=== PATIENT | female | born 1930 | race Caucasian/White ===

== ENCOUNTER 2019-07-06 18:52 | Inpatient (IN) ==
--- NOTE | 2019-07-06 19:09 | Emergency Department Note ---
History of Present Illness General Chief Complaint: Chest Pain Stated Complaint: Referred by Doctor Time Seen by Provider: 07/06/19 19:01 History of Present Illness Provider Complaint: chest pain Onset (ago): day(s) 4 Duration: progressively worsening Pain Location: left chest Pain Radiation: LUE Severity: severe Maximum Pain Intensity: 8 Current Pain Intensity: 8 Quality: + sharp Relieved By: + nothing Exacerbated By: + nothing Associated symptoms: + cough; no nausea, no vomiting, no diaphoresis, no dyspnea, no syncope, no palpitations and no leg swelling No anosmia or loss of taste. No recent travel. No hemoptysis. Home Medications Home Medications Medication Instructions Recorded Confirmed Type albuterol sulfate 2 puff INHALATION Q6H PRN 02/19/18 07/06/19 History ropinirole [Requip] 0.5 mg PO QPM 02/19/18 07/06/19 History trazodone 100 mg PO QPM 02/19/18 07/06/19 History atorvastatin 20 mg PO HS 07/06/19 07/06/19 History levothyroxine 50 mcg PO DAILY 07/06/19 07/06/19 History lisinopril 20 mg PO DAILY 07/06/19 07/06/19 History omeprazole 20 mg PO DAILY 07/06/19 07/06/19 History theophylline 200 mg PO DAILY 07/06/19 07/06/19 History Allergies Allergy/AdvReac Type Severity Reaction Status Date / Time No Known Allergies Allergy Verified 07/06/19 20:29 Past Med/Surg History Medical History (Updated 07/06/19 @ 21:01 by Mandeep Landon) Diverticulitis (Chronic) GI bleed Hemorrhoid No pertinent family history PSVT (paroxysmal supraventricular tachycardia) Stroke Surgical History (Updated 07/06/19 @ 19:08 by Mandeep Landon) No pertinent past surgical history Social History Preferred Language: Vietnamese Communication Ability: Effective Beliefs That Will Affect Care: None marital status: / Current Living Situation: Family Feels Safe at Home: Yes Smoking Status: Never smoker Hx Alcohol Use: No Hx Substance Use: No Review of Systems A total of 10 systems reviewed and were otherwise negative Physical Exam Vital Signs Vital Signs - 24 hr 07/06/19 18:54 07/06/19 19:22 07/06/19 20:14 Temperature 37.0 C Temperature Source Oral Pulse Rate 97 H 89 82 Pulse Rate from SpO2 Sensor 90 Respiratory Rate 18 20 Respiratory Depth Normal Blood Pressure 169/97 H Blood Pressure Mean 121 Pulse Oximetry 94 93 Oxygen Delivery Method Room Air Sepsis Recent Fever Within 48 Hours No Sepsis New/Unexplained Change in Mental Status No Sepsis Action Taken by Nursing No Action Required 07/06/19 20:15 07/06/19 20:30 Temperature Temperature Source Pulse Rate 84 78 Pulse Rate from SpO2 Sensor 85 77 Respiratory Rate 20 24 Respiratory Depth Blood Pressure 163/102 H Blood Pressure Mean 135 Pulse Oximetry 96 95 Oxygen Delivery Method Sepsis Recent Fever Within 48 Hours Sepsis New/Unexplained Change in Mental Status Sepsis Action Taken by Nursing Physical Exam GENERAL: She is oriented to person, place, and time. She appears well-developed and well-nourished. She does not appear distressed. HENT: Exam performed. -Head: Normocephalic and atraumatic. -Right Ear: External ear normal. No mastoid tenderness. -Left Ear: External ear normal. No mastoid tenderness. -Mouth/Throat: The oropharynx is clear and moist. No trismus in the jaw. No dental abscesses or uvula swelling. No oropharyngeal exudate or tonsillar abscesses. EYES: Conjunctivae and EOM are normal. Pupils are equal, round, and reactive to light. Right eye exhibits no discharge. Left eye exhibits no discharge. No scleral icterus. NECK: Normal range of motion. Neck supple. No JVD present. No spinous process tenderness present. No carotid bruit present. No rigidity. No tracheal deviation and normal range of motion present. No Brudzinski's sign and no Kernig's sign noted. CV: Normal rate, regular rhythm, normal heart sounds and intact distal pulses. There is no peripheral edema. Palpable radial pulses bue. PULM/CHEST: Effort normal and breath sounds normal. No respiratory distress. No stridor. She has no wheezes. She has no rales. -Chest Wall: Pain on palpation of the left lateral ribs reproducing the chief complaint. No crepitus bilaterally. ABD: The abdomen is soft. Bowel sounds are normal. She has no distension. No mass is present. There is no tenderness. There is no rebound, no guarding, no Muir's sign and no tenderness at McBurney's point. Rovsig negative MUSC/SKEL: Normal range of motion. There is no peripheral edema, tenderness or deformity. LYMPH: No cervical adenopathy. NEURO: She is alert and oriented to person, place, and time. She has normal strength. No cranial nerve deficit or sensory deficit. Coordination and gait normal. GCS eye subscore is 4. GCS verbal subscore is 5. GCS motor subscore is 6. Cerebellar tests wnl. SKIN: Skin is warm and dry. She is not diaphoretic. PSYCH: She has a normal mood and affect. Behavior is normal. Judgment and thought content normal. Course Course 1903: The patient was evaluated in room B7. A complete history and physical exam was performed. 2057: Vital signs stable. Labs and imaging within normal limits. Junior Manufacturing Engineer Rodriguez was able to obtain the patient's records from today's PCP with visit with Dr. Quintero. Per Dr. Quintero's note:\\ " Multitude of concerning symptoms-speech difficulty possible suggestive of TIA. Pleuritic chest pain could represent PE. EKG performed in the office shows possible septal changes from her previous EKG. Son is been sleeping more recently? Dehydration versus UTI/pyelonephritis. Needs lab/imaging evaluation." Given the patient's EKG finding changes from her PCP office as well as her age, PCP concern, and other comorbidities, the patient will be admitted to the hospital. The patient was initially resistant to staying however I discussed with her son Serafin ([phone]) and he confirms a story of the patient having difficulty finding her words for the last few days. He also confirmed the patient having chest pain rating down her left arm. Given the symptoms patient will be admitted to the hospital service. After discussing with her son on cell phone patient is agreement to stay. Discussed with Dr. Quinones who [facility] hospitalist who agreed to admit the patient. Medical Decision Making Laboratory Data Result diagrams: 07/06/19 19:16 07/06/19 19:16 Labs: Lab Results 07/06/19 07/06/19 07/06/19 Range/Units 19:16 19:16 19:16 WBC 8.81 (4.8-10.8) K/uL RBC 3.93 L (4.2-5.4) M/uL Hgb 12.5 (12.0-16.0) g/dL Hct 37.8 (37-47) % MCV 96.2 (80-100) fL MCH 31.8 (25-34) pg MCHC 33.1 (32-36) g/dL RDW Std Deviation 48.9 H (36.4-46.3) fL RDW Coeff of Caroline 14.0 (11.5-14.5) % Plt Count 237 (130-400) K/uL MPV 9.9 (7.4-10.4) fL Immature Gran % (Auto) 0.3 % Neut % (Auto) 72.0 % Lymph % (Auto) 18.8 % [place] % (Auto) 5.4 % Eos % (Auto) 3.3 % Baso % (Auto) 0.2 % Immature Gran # (Auto) 0.03 H (0.00-0.02) K/uL Neut # (Auto) 6.33 (1.4-6.5) K/uL Lymph # (Auto) 1.66 (1.2-3.4) K/uL [place] # (Auto) 0.48 (0.11-0.59) K/uL Eos # (Auto) 0.29 (0-0.5) K/uL Baso # (Auto) 0.02 (0-0.2) K/uL PT 10.3 (9.0-12.0) Seconds INR 1.0 (0.9-1.1) APTT 26.5 (21.0-31.0) Seconds PTT Ratio 0.9 Sodium 141 (136-145) mmol/L Potassium 4.2 (3.5-5.1) mmol/L Chloride 107 (98-107) mmol/L Carbon Dioxide 27 (21-32) mmol/L Anion Gap 7.0 (3-11) BUN 12 (7-18) mg/dl Creatinine 0.94 (0.6-1.2) mg/dl Est Cr Clr Drug Dosing Not Reportable Est GFR ( Amer) 63.7 Est GFR (Non-Af Amer) 54.9 BUN/Creatinine Ratio 12.8 (10-20) Glucose 130 H (70-99) mg/dl Calcium 9.3 (8.5-10.1) mg/dl Troponin I 0.015 (0-0.045) ng/ml Imaging Data CT scan - head: Radiologist's impression: CT OF THE HEAD WITHOUT CONTRAST CLINICAL HISTORY: Altered mental status. COMPARISON STUDY: Head CT February 22, 2018. MRI of the brain February 20, 2018. CT DOSE: 537.48 mGy.cm TECHNIQUE: Helical axial images of the head were obtained without IV contrast. Automated exposure control was utilized for the study. A dose lowering tech nique was utilized adhering to the principles of ALARA. FINDINGS: No acute intracranial hemorrhage, midline shift or mass effect is present. The ventricular system is unremarkable. The basilar cisterns are patent. No extra-axial collections are present. There are no findings to suggest acute dural sinus thrombosis or acute territorial infarct. No significant calvarial abnormalities are present. Visualized portions of the sinuses and mastoid air cells are clear. White matter hypodensities are unchanged and suggest extensive small vessel disease. IMPRESSION: No acute intracranial findings. No change in appearance of the brain. ACT 112: Negative or not required by law. Electronically signed by: Balbir Glasgow M.D. 07/06/2019 7:42 PM Dictated: 07/06/191938 Transcribed: 07/06/191938 Chest x-ray: Radiologist's impression: XR chest 1V portable CLINICAL HISTORY: Chest Pain COMPARISON STUDY: No previous studies for comparison. FINDINGS: The patient is rotated. There is no pneumothorax or pleural effusion. Note is made of mild cardiomegaly without evidence for pulmonary edema. There is no consolidation to suggest pneumonia. Lung volumes are at the lower limits of normal. IMPRESSION: 1. No acute cardiopulmonary findings. 2. Mild cardiomegaly without evidence for pulmonary edema. ACT 112: Negative or not required by law. Electronically signed by: Balbir Glasgow M.D. 07/06/2019 8:22 PM Dictated: 07/06/191956 Transcribed: 07/06/191958 ECG Data Additional Comments: EKG shows sinus rhythm with rate of 83. ID and QTc intervals within normal limits. QRS 124. Left bundle branch block present. Sgarbosa negative. [facility] Narrative 1903: The patient was evaluated in room B7. A complete history and physical exam was performed. 2057: Vital signs stable. Labs and imaging within normal limits. Junior Manufacturing Engineer Rodriguez was able to obtain the patient's records from today's PCP with visit with Dr. Quintero. Per Dr. Quintero's note:\\ " Multitude of concerning symptoms-speech difficulty possible suggestive of TIA. Pleuritic chest pain could represent PE. EKG performed in the office shows possible septal changes from her previous EKG. Son is been sleeping more recently? Dehydration versus UTI/pyelonephritis. Needs lab/imaging evaluation." Given the patient's EKG finding changes from her PCP office as well as her age, PCP concern, and other comorbidities, the patient will be admitted to the hospital. The patient was initially resistant to staying however I discussed with her son Serafin ([phone]) and he confirms a story of the patient having difficulty finding her words for the last few days. He also confirmed the patie nt having chest pain rating down her left arm. Given the symptoms patient will be admitted to the hospital service. After discussing with her son on cell phone patient is agreement to stay. Discussed with Dr. Quinones who [facility] hospitalist who agreed to admit the patient. Impression & Plan Chest pain Discharge Plan Visit Data Chief Complaint: Chest Pain Stated Complaint: Referred by Doctor ED Provider: Mandeep Landon Discharge Problem: Chest pain Patient Disposition: Being Evaluated by Hospitalist Forms Stand Alone Forms: My [employer] Prescriptions Prescriptions: No Action atorvastatin 20 mg tablet 20 mg PO HS RF: 0 theophylline 400 mg tablet extended release 24 hr 200 mg PO DAILY RF: 0 lisinopril 20 mg tablet 20 mg PO DAILY RF: 0 levothyroxine 50 mcg tablet 50 mcg PO DAILY RF: 0 omeprazole 20 mg capsule,delayed release(DR/EC) 20 mg PO DAILY RF: 0 trazodone 100 mg Tablet 100 mg PO QPM RF: 0 ropinirole [Requip] 0.25 mg Tablet 0.5 mg PO QPM RF: 0 albuterol sulfate 90 mcg/actuation Hfa Aerosol Inhaler 2 puff INHALATION Q6H PRN (Reason: Shortness Of Breath Or Wheezing) RF: 0 Referrals Referrals: Dulce Maria Quintero DO [Primary Care Provider] - Discharge Problem: Chest pain Qualifiers: Chest pain type: unspecified Qualified Code(s): R07.9 - Chest pain, unspecified
[2019-07-06 19:30] LABS: Basophils # (auto) 0.02 K/uL (0-0.2); Basophils % (auto) 0.2 %; Eosinophils # (auto) 0.29 K/uL (0-0.5); Eosinophils % (auto) 3.3 %; Hematocrit (blood only) 37.8 % (37-47); Hemoglobin 12.5 g/dL (12.0-16.0); Immature Granulocytes # (auto) 0.03 K/uL (0.00-0.02); Immature Granulocytes % (auto) 0.3 %; Lymphocytes # (auto) 1.66 K/uL (1.2-3.4); Lymphocytes % (auto) 18.8 %; Mean Corpuscular Hemoglobin 31.8 pg (25-34); Mean Corpuscular Hgb Conc 33.1 g/dL (32-36); Mean Corpuscular Volume 96.2 fL (80-100); Mean Platelet Volume 9.9 fL (7.4-10.4); Monocytes # (auto) 0.48 K/uL (0.11-0.59); Monocytes % (auto) 5.4 %; Neutrophils # (auto) 6.33 K/uL (1.4-6.5); Platelet Count 237 K/uL (130-400); RDW Standard Deviation 48.9 fL (36.4-46.3); Red Blood Count 3.93 M/uL (4.2-5.4); White Blood Count 8.81 K/uL (4.8-10.8)
--- NOTE | 2019-07-06 19:43 | CT Scan Report ---
CT OF THE HEAD WITHOUT CONTRAST CLINICAL HISTORY: Altered mental status. COMPARISON STUDY: Head CT February 22, 2018. MRI of the brain February 20, 2018. CT DOSE: 537.48 mGy.cm TECHNIQUE: Helical axial images of the head were obtained without IV contrast. Automated exposure con trol was utilized for the study. A dose lowering technique was utilized adhering to the principles o f ALARA. FINDINGS: No acute intracranial hemorrhage, midline shift or mass effect is present. The ventricular system is unremarkable. The basilar cisterns are patent. No extra-axial collections are present. Ther e are no findings to suggest acute dural sinus thrombosis or acute territorial infarct. No significan t calvarial abnormalities are present. Visualized portions of the sinuses and mastoid air cells are c lear. White matter hypodensities are unchanged and suggest extensive small vessel disease. IMPRESSION: No acute intracranial findings. No change in appearance of the brain. ACT 112: Negative or not required by law. Electronically signed by: Balbir Glasgow M.D. 07/06/2019 7:42 PM
[2019-07-06 19:44] LABS: Partial Thromboplastin Ratio 0.9; Partial Thromboplastin Time 26.5 Seconds (21.0-31.0); Prothrombin Time 10.3 Seconds (9.0-12.0)
[2019-07-06 19:48] LABS: BUN Creatinine Ratio 12.8 (10-20); Blood Urea Nitrogen 12 mg/dl (7-18); Calcium 9.3 mg/dl (8.5-10.1); Carbon Dioxide 27 mmol/L (21-32); Chloride 107 mmol/L (98-107); Est GFR (African American) 63.7; Est GFR (Non-African American) 54.9; Glucose 130 mg/dl (70-99); Potassium 4.2 mmol/L (3.5-5.1); Sodium 141 mmol/L (136-145)
[2019-07-06 19:52] LABS: Troponin I 0.015 ng/ml (0-0.045)
--- NOTE | 2019-07-06 20:24 | XRay Report ---
XR chest 1V portable CLINICAL HISTORY: Chest Pain COMPARISON STUDY: No previous studies for comparison. FINDINGS: The patient is rotated. There is no pneumothorax or pleural effusion. Note is made of mild cardiomegaly without evidence for pulmonary edema. There is no consolidation to suggest pneumonia. Karina ng volumes are at the lower limits of normal. IMPRESSION: 1. No acute cardiopulmonary findings. 2. Mild cardiomegaly without evidence for pulmonary edema. ACT 112: Negative or not required by law. Electronically signed by: Balbir Glasgow M.D. 07/06/2019 8:22 PM
[2019-07-06] MEDS ORDERED: SODIUM CHLORIDE 0.9% 1000ML 1,000 ML IV SCH (23:21)
[2019-07-06] MEDS ORDERED: ONDANSETRON INJ 2 MG/ML 2 ML VIAL IV PRN (23:21)
[2019-07-06] MEDS ORDERED: NITROGLYCERIN SL 0.4 MG/TAB TAB SL PRN (23:21)
[2019-07-06] MEDS ORDERED: MoRPHine SULFATE 2 MG/ML CARP IV PRN (23:21)
[2019-07-06] MEDS ORDERED: ALBUTEROL HFA 8 GM INHALER INH PRN (23:21)
[2019-07-07] MEDS: ROPINIROLE HCL 0.25 MG TABLET PO SCH ×2 (00:06→20:45)
[2019-07-07] MEDS: TRAZODONE HCL 100 MG TAB PO SCH ×2 (00:06→20:45)
--- NOTE | 2019-07-07 00:17 | History and Physical Report ---
DATE OF ADMISSION: 07/06/2019 CHIEF COMPLAINT: Chest pain. HISTORY OF PRESENT ILLNESS: This is an 88-year-old female with past medical history significant for hypertension, diabetes, hyperlipidemia, hypothyroidism, senile osteoporosis, asthma in remission, allergic rhinitis, GERD, iron deficiency anemia, who lives with her son presents with chest pain. The patient says last few days she is having left sided chest pain and also left arm pain, intermittent in severity. No alleviating or aggravating factors, constant pain. The pain is more when she coughs or sneezes, lifting the arms up she has more pain. She ambulates okay. Denies any shortness of breath. No cough, no fever, no chills. Hard of hearing. No headache, no earache. She has runny nose but attributes to allergies. No sore throat. Appetite is okay. No nausea, no abdominal pain. Normal bowel and bladder movements. No rash, no swelling in the legs. Currently resting comfortably and hemodynamically stable. Also, there is question of difficulty of finding words few days back. The patient states that she just couldn't remember the words. She has history of similar symptoms in the past and thought to be from TIA. CT of the head is unremarkable in the ER. Currently, speech is clear. ALLERGIES: No known drug allergies. PAST MEDICAL HISTORY: As mentioned above. PAST SURGICAL HISTORY: Left total knee arthroplasty, colonoscopy, multiple EGDs, removal of oviducts, cataract surgery, total abdominal hysterectomy with removal of tubes. MEDICATIONS: The patient is on levothyroxine 50 mcg p.o. daily, lisinopril 20 mg p.o. daily, trazodone 100 mg p.o. at bedtime p.r.n., vitamin D 2000 units p.o. daily, Requip 0.5 mg p.o. at bedtime, omeprazole 20 mg p.o. daily, Lipitor 20 mg p.o. daily, theophylline 200 mg p.o. daily, aspirin 81 mg p.o. daily, albuterol 2 puffs q. 4 hours p.r.n. FAMILY HISTORY: Significant for mother at age of 95. Father at age of 75 at motor vehicle accident. SOCIAL HISTORY: , lives with her son and [id number]. No smoking. No alcohol use, no drug use. REVIEW OF SYMPTOMS: As per HPI. Rest of review of symptoms negative. PHYSICAL EXAMINATION: GENERAL: The patient is old and frail, not in acute distress. Hard of hearing. VITAL SIGNS: Temperature 37, pulse 78, respiratory rate 24, blood pressure 163/102, oxygen 95% on room air. HEENT: No pallor, no icterus. NECK: Supple. No neck masses. CARDIOVASCULAR: S1, S2 heard, regular rate and rhythm, no murmur, no gallop. RESPIRATORY SYSTEM: Normal AP diameter. No accessory muscle use. No wheezing, no crackles. ABDOMEN: Soft, bowel sounds present, nontender. No distention. CENTRAL NERVOUS SYSTEM: Alert and awake, obeys simple commands. Moves extremities. EXTREMITIES: No edema, no erythema. LABORATORY DATA: WBC 8.8, hemoglobin 12.5, hematocrit 37.8, platelets 237. PT 10.3, INR 1, APTT 26.5. Sodium 141, potassium 4.2, chloride 107, bicarbonate 27, BUN 12, creatinine 0.9, serum glucose 130, calcium 9.3. Troponin 0.015. IMAGING: Chest x-ray: No acute cardiopulmonary findings. CT of the head, no acute intracranial findings. EKG: Normal sinus rhythm, at a rate of 83, left bundle branch block, T-wave inversions in lateral leads. ASSESSMENT AND PLAN: This is an 88-year-old female who presents with chest pain. 1. Chest pain on the left side and also left arm pain: The pain is more on coughing and sneezing and also when lifting left upper extremity.Mostly musculoskeletal. Rule out acute coronary syndrome with risk factors of age, hypertension, hyperlipidemia. Initial troponin negative. We will follow serial cardiac enzymes, echocardiogram, n.p.o. after midnight and consult cardiology in a.m. We also rule out pulmonary embolism with CT of the chest. Pain control with IV morphine p.r.n. for now. 2. Diabetes: Not on any medications. We will follow HbA1c levels, currently n.p.o. 3. History of hypothyroidism: Continue Synthroid. 4. Hypertension: Continue lisinopril. We will monitor the blood pressure. 5. Hyperlipidemia: Continue statin. Follow fasting lipid profile. 6. Restless leg syndrome: Continue Requip bedtime. 7. Gastroesophageal reflux disease: Continue omeprazole. 8. Asthma, currently in remission on albuterol, p.r.n. theophylline. 9. History of transient ischemic attack in the past Few days back an e[isode of word finding difficulty. Currently stable. If any concerns, we will get MRI of the head. 7. Deep venous thrombosis prophylaxis, sequential compression devices. DISPOSITION: Close monitoring in the med/surge tele. Level 1 full code. PT and OT prior to discharge. Social Service to help with discharge planning. LUCA
[2019-07-07] MEDS ORDERED: OPTIRAY 320 125ml IV PRN (00:31)
[2019-07-07] MEDS: ACETAMINOPHEN 325 MG TAB PO PRN (04:15)
[2019-07-07] MEDS: LEVOTHYROXINE SODIUM 50 MCG TABLET PO SCH (04:16)
[2019-07-07 05:57] LABS: Basophils # (auto) 0.03 K/uL (0-0.2); Basophils % (auto) 0.3 %; Eosinophils % (auto) 3.5 %; Hematocrit (blood only) 34.6 % (37-47); Hemoglobin 11.5 g/dL (12.0-16.0); Immature Granulocytes # (auto) 0.03 K/uL (0.00-0.02); Immature Granulocytes % (auto) 0.3 %; Lymphocytes # (auto) 2.09 K/uL (1.2-3.4); Lymphocytes % (auto) 24.2 %; Mean Corpuscular Hemoglobin 31.8 pg (25-34); Mean Corpuscular Hgb Conc 33.2 g/dL (32-36); Mean Corpuscular Volume 95.6 fL (80-100); Mean Platelet Volume 9.5 fL (7.4-10.4); Monocytes # (auto) 0.44 K/uL (0.11-0.59); Monocytes % (auto) 5.1 %; Neutrophils # (auto) 5.76 K/uL (1.4-6.5); Neutrophils % (auto) 66.6 %; Platelet Count 214 K/uL (130-400); RDW Coefficient of Variation 14.1 % (11.5-14.5); RDW Standard Deviation 48.9 fL (36.4-46.3); Red Blood Count 3.62 M/uL (4.2-5.4); White Blood Count 8.65 K/uL (4.8-10.8)
[2019-07-07 06:29] LABS: BUN Creatinine Ratio 11.8 (10-20); Calcium 8.6 mg/dl (8.5-10.1); Creatinine Clr Calc Pharmacy 33.2 ml/min; Est GFR (African American) 75.1; Est GFR (Non-African American) 64.8; Magnesium 1.8 mg/dl (1.8-2.4); Potassium 3.6 mmol/L (3.5-5.1)
[2019-07-07 06:41] LABS: Troponin I 0.059 ng/ml (0-0.045)
[2019-07-07] MEDS ORDERED: Heparin IV Low Dose *NO* Bolus IV SCH (06:46)
[2019-07-07] MEDS ORDERED: HEPARIN SODIUM/DEXTROSE 25,000 UNITS/500 ML BAG IV SCH (07:00)
--- NOTE | 2019-07-07 07:26 | CT Scan Report ---
CT ANGIOGRAM OF THE CHEST CLINICAL HISTORY: Atypical left-sided chest pain. Possible pulmonary embolism. COMPARISON STUDY: Chest x-ray dated 07/06/2019 TECHNIQUE: Following the IV administration of 118 mL of Optiray-320, CT angiogram of the thorax was p erformed from the thoracic inlet to the lung bases utilizing the pulmonary embolus protocol. Images a re reviewed in the axial, sagittal, and coronal planes. IV contrast was administered without complica tion. MIP imaging was performed. A dose lowering technique was utilized adhering to the principles o f ALARA. CT DOSE: 480.63 mGy.cm FINDINGS: There is a moderate hiatal hernia. No pathologically enlarged axillary mediastinal or hilar lymph nodes were visualized. There was no evidence of thoracic aortic dilatation. There were no pulmonary artery filling defects to indicate acute pulmonary embolism. No pleural effusions are visualized. There is respiratory motion artifact. There is no focal pulmonary consolidation. IMPRESSION: 1. No evidence of acute pulmonary embolism 2. No evidence of focal pulmonary consolidation 3. No evidence of pneumothorax 4. Hiatal hernia ACT 112: Negative or not required by law. Electronically signed by: Giuseppe Martinez M.D. 07/07/2019 7:25 AM
--- NOTE | 2019-07-07 07:56 | Electrocardiogram Report ---
Test Reason : Blood Pressure : / mmHG Vent. Rate : 083 BPM Atrial Rate : 083 BPM P-R Int : 166 ms QRS Dur : 124 ms QT Int : 396 ms P-R-T Axes : 040 -24 127 degrees QTc Int : 465 ms Normal sinus rhythm Left bundle branch block Abnormal ECG When compared with ECG of 22-FEB-2018 12:03, Premature atrial complexes are no longer Present Vent. rate has increased BY 27 BPM Confirmed by Guzman Alegria ([id number]) on 07/07/2019 7:55:44 AM Referred By: REFERRED SELF Confirmed By:Guzman Alegria
[2019-07-07] MEDS ORDERED: PERFLUTREN LIPID MICROSPHERE (DEFINITY) IV ONE (08:00)
[2019-07-07] MEDS: PANTOprazole 40 MG TAB PO SCH (08:42)
[2019-07-07] MEDS: ASPIRIN 81 MG ECTAB PO SCH (08:42)
[2019-07-07] MEDS: lisinopriL 20 MG TAB PO SCH (08:42)
[2019-07-07] MEDS: THEOPHYLLINE 400 MG EXTENDED REL TAB PO SCH (08:42)
--- NOTE | 2019-07-07 10:16 | Hospitalist Progress Note ---
Date of Service July 07, 2019 Assessment & Plan (1) Chest pain: with associated left arm pain Elevated Troponins -as per admission H and P by Dr. Chin "This is an 88-year-old female with past medical history significant for hypertension, diabetes, hyperlipidemia, hypothyroidism, senile osteoporosis, asthma in remission, allergic rhinitis, GERD, iron deficiency anemia, who lives with her son presents with chest pain. The patient says last few days she is having left sided chest pain and also left arm pain, intermittent in severity." -CTA chest: no pulmonary embolism -07/07/2019 day time: Patient's initial 2 troponins were negative. third troponin was elevated as 0.[address] Chin started patient on heparin drip. On my exam patient in the bed and feeling comfortable. No acute distress. Not having chest pain currently. She has the heparin IV running. She denies trauma to her left chest or ribs or left arm. There are no bruising or ecchymosis or skin lesions of the area. Patient breathing on room air. no abdomen pain. no vomiting. patient denies other symptoms -trend troponin while on heparin drip -at this time will await cardiology evaluation History of transient ischemic attack in the past -admitting physician commented that patient had word finding difficulties a few days ago. Patient does not present with speech problems. -PT/OT evaluation, speech and swallow evaluation Hypertension -Continue lisinopril Hyperlipidemia -lipid panel shows good profile and LDL under 70, continue home dose atorvastatin 20 mg qhs Diabetes Mellitus type 2 without chcf current use of insulin -not on medications at home -check HbA1c Hypothyroidism -continue home dose levothyroxine Restless leg syndrome -Continue Requip bedtime. Gastroesophageal reflux disease -Continue omeprazole. Asthma -no acute exacerbation -currently in remission on albuterol, p.r.n. theophylline. Admission and Anticipated Discharge Date Admission Date: July 06, 2019 Subjective Patient was admitted by night time Dr. Chin. Patient's initial 2 troponins were negative. third troponin was elevated as 0.[address] Chin started patient on heparin drip. On my exam patient in the bed and feeling comfortable. No acute distress. Not having chest pain currently. She has the heparin IV running. She denies trauma to her left chest or ribs or left arm. There are no bruising or ecchymosis or skin lesions of the area. Patient breathing on room air. no abdomen pain. no vomiting. patient denies other symptoms Review of Systems Review of Systems: All systems reviewed & are unremarkable except as noted in Subjective Physical Exam Constitutional: comfortable Eyes: PERRL, conjunctivae normal, anicteric sclerae EOM intact bilaterally ENMT: external ear and nose normal, oropharynx normal Neck: normal visual inspection Respiratory: normal respiratory effort, lungs clear to auscultation Cardiovascular: Rate/Rhythm: regular rate and regular rhythm Gastrointestinal (Abdomen): normal bowel sounds, soft, nontender, no hepatosplenomegaly Musculoskeletal: Head/Neck/Chest: normocephalic and head atraumatic no bruising or acute skin lesions of the left rib area or left arm Neurologic: PERRL, EOMI, accommodation nl, no face palsy, no dysarthria Psychiatric: A+Ox3, euthymic affect Results & Data Results & Data ([facility]) Vital Signs (Past 12 Hours) Vital Signs Temp Pulse Pulse Resp BP Pulse Ox 07/07/19 07:13 37.0 C 69 18 124/76 94 07/07/19 03:40 36.8 C 76 18 165/77 H 92 07/06/19 23:53 79 07/06/19 23:29 37.7 C H 80 20 157/89 H 93 (1) Chest pain Chest pain type: unspecified Qualified Code(s): R07.9 - Chest pain, unspecified
[2019-07-07 13:11] LABS: Estimated Average Glucose 166 mg/dl; Hemoglobin A1C 7.4 % (4.5-5.6)
--- NOTE | 2019-07-07 13:29 | Cardiology Consultation ---
Date of Consultation July 07, 2019 Assessment & Plan (1) Atypical chest pain: Patient presented with several day history of sharp pain in the upper chest arm shoulder and neck worse with cough sneeze and arm movement. Symptoms very atypical for angina or acute coronary syndrome. Chronic left bundle branch block precludes interpretation of EKG findings. Minimal rise in troponin which I feel is likely spurious. Symptoms of been persistent for several days and still ongoing. Echocardiogram not significantly changed from prior studies. Underlying ischemic heart disease not completely excluded Agree with anticoagulation with IV heparin for 24-hour, review of records reveals poor tolerance of beta-alvaro in the past with profound symptomatic hypotension and bradycardia during prior hospitalization, would avoid We will add low-dose topical nitrates continue aspirin SUMMER inhibitor and statin Continue to follow examination (2) Left bundle branch block: History of Present Illness Reason for Consultation: Left arm pain with movement Requesting Physician: Dr Jaramillo Attending Physician: Riki Jaramillo MD History of Present Illness Patient is an 88-year-old female referred for symptoms of chest and arm pain. Symptoms per patient description described as pain worse with deep inspiration cough sneeze and left arm and neck movement. Symptoms sharp and nature and present nearly continuously for several days duration per patient. Her past medical history is notable for hypertension, hyperlipidemia, past TIAs, chronic left bundle branch block on EKG Evaluation since admission included CTA negative for pulmonary embolus. Troponins demonstrated transient (question spurious) single elevation in troponin. Symptoms remain present without moderation. Patient denies any other acute complaints. Though question raised by family some difficulty choosing words in the last 1 to 2 days. She denies nausea vomiting diarrhea melena hematochezia. Notes no falls or injury. Specifically aware of tenderness to her left shoulder and and upper back on palpation. No history of bleeding difficulties melena medication dysuria hematuria. Patient notes she takes her medications faithfully Allergies Allergy/AdvReac Type Severity Reaction Status Date / Time No Known Allergies Allergy Verified 07/06/19 20:29 Home Medications Home Medications Medication Instructions Recorded Confirmed Type albuterol sulfate 2 puff INHALATION Q6H PRN 02/19/18 07/06/19 History ropinirole [Requip] 0.5 mg PO QPM 02/19/18 07/06/19 History trazodone 100 mg PO QPM 02/19/18 07/06/19 History Aspirin Low Dose 81 mg PO DAILY 07/06/19 07/06/19 History atorvastatin 20 mg PO HS 07/06/19 07/06/19 History levothyroxine 50 mcg PO DAILY 07/06/19 07/06/19 History lisinopril 20 mg PO DAILY 07/06/19 07/06/19 History omeprazole 20 mg PO DAILY 07/06/19 07/06/19 History theophylline 200 mg PO DAILY 07/06/19 07/06/19 History Patient History Medical History (Updated 07/08/19 @ 12:31 by Jabari Seaman MD) Diverticulitis (Chronic) GI bleed Hemorrhoid No pertinent family history PSVT (paroxysmal supraventricular tachycardia) Stroke Surgical History No pertinent past surgical history Social History Preferred Language: Micronesian Communication Ability: Effective Circular Stuffer Required: No Beliefs That Will Affect Care: None marital status: / Current Living Situation: Family Current Living Situation Comment: son and [id number] Feels Safe at Home: Yes Safety Concerns: Feels Safe At This Time Smoking Status: Never smoker Hx Alcohol Use: No Hx Substance Use: No Review of Systems Review of Systems: All systems reviewed & are unremarkable except as noted in HPI & below Physical Exam Constitutional: Elderly female in no acute distress Eyes: PERRL, conjunctivae normal, anicteric sclerae ENMT: external ear and nose normal, oropharynx normal Neck: trachea midline, no thyromegaly Respiratory: normal respiratory effort, lungs clear to auscultation Cardiovascular: Rate/Rhythm: regular rate and regular rhythm Heart Sounds: normal S1 and normal S2; no gallop Palpation: normal PMI; no heave Vessels: no JVD and no carotid bruit Extremities: no edema Chest (Breasts): Additional Comments: Kyphotic with focal tenderness over upper thoracic spine Musculoskeletal: Head/Neck/Chest: + abnormal palpation of chest wall Moderate kyphosis is present. There is tenderness overlying the upper thoracic spine Results & Data ([facility]) Vital Signs (Past 12 Hours) Vital Signs Temp Pulse Resp BP Pulse Ox 07/07/19 12:03 36.9 C 64 18 148/81 H 94 07/07/19 07:13 37.0 C 69 18 124/76 94 07/07/19 03:40 36.8 C 76 18 165/77 H 92 Laboratory Results Laboratory Results - last 24 hr 07/06/19 07/06/19 07/06/19 19:16 19:16 19:16 WBC 8.81 RBC 3.93 L Hgb 12.5 Hct 37.8 MCV 96.2 MCH 31.8 MCHC 33.1 RDW Std Deviation 48.9 H RDW Coeff of Caroline 14.0 Plt Count 237 MPV 9.9 Immature Gran % (Auto) 0.3 Neut % (Auto) 72.0 Lymph % (Auto) 18.8 [place] % (Auto) 5.4 Eos % (Auto) 3.3 Baso % (Auto) 0.2 Immature Gran # (Auto) 0.03 H Neut # (Auto) 6.33 Lymph # (Auto) 1.66 [place] # (Auto) 0.48 Eos # (Auto) 0.29 Baso # (Auto) 0.02 PT 10.3 INR 1.0 APTT 26.5 PTT Ratio 0.9 Sodium 141 Potassium 4.2 Chloride 107 Carbon Dioxide 27 Anion Gap 7.0 BUN 12 Creatinine 0.94 Est Cr Clr Drug Dosing Not Reportable Est GFR ( Amer) 63.7 Est GFR (Non-Af Amer) 54.9 BUN/Creatinine Ratio 12.8 Glucose 130 H POC Glucose Estimat Average Glucose Hemoglobin A1c Calcium 9.3 Magnesium Troponin I 0.015 Triglycerides Cholesterol LDL Cholesterol, Calc VLDL Cholesterol, Calc HDL Cholesterol Cholesterol/HDL Ratio 07/06/19 07/07/19 07/07/19 23:30 05:21 05:21 WBC 8.65 RBC 3.62 L Hgb 11.5 L Hct 34.6 L MCV 95.6 MCH 31.8 MCHC 33.2 RDW Std Deviation 48.9 H RDW Coeff of Caroline 14.1 Plt Count 214 MPV 9.5 Immature Gran % (Auto) 0.3 Neut % (Auto) 66.6 Lymph % (Auto) 24.2 [place] % (Auto) 5.1 Eos % (Auto) 3.5 Baso % (Auto) 0.3 Immature Gran # (Auto) 0.03 H Neut # (Auto) 5.76 Lymph # (Auto) 2.09 [place] # (Auto) 0.44 Eos # (Auto) 0.30 Baso # (Auto) 0.03 PT INR APTT PTT Ratio Sodium 140 Potassium 3.6 Chloride 107 Carbon Dioxide 28 Anion Gap 5.0 BUN 10 Creatinine 0.82 Est Cr Clr Drug Dosing 33.2 Est GFR ( Amer) 75.1 Est GFR (Non-Af Amer) 64.8 BUN/Creatinine Ratio 11.8 Glucose 119 H POC Glucose Estimat Average Glucose Hemoglobin A1c Calcium 8.6 Magnesium 1.8 Troponin I 0.026 0.059 H* Triglycerides 135 Cholesterol 132 LDL Cholesterol, Calc 59 VLDL Cholesterol, Calc 27 HDL Cholesterol 46 Cholesterol/HDL Ratio 3 07/07/19 07/07/19 07/07/19 06:02 11:30 12:47 WBC RBC Hgb Hct MCV MCH MCHC RDW Std Deviation RDW Coeff of Caroline Plt Count MPV Immature Gran % (Auto) Neut % (Auto) Lymph % (Auto) [place] % (Auto) Eos % (Auto) Baso % (Auto) Immature Gran # (Auto) Neut # (Auto) Lymph # (Auto) [place] # (Auto) Eos # (Auto) Baso # (Auto) PT INR APTT PTT Ratio Sodium Potassium Chloride Carbon Dioxide Anion Gap BUN Creatinine Est Cr Clr Drug Dosing Est GFR ( Amer) Est GFR (Non-Af Amer) BUN/Creatinine Ratio Glucose POC Glucose 125 H 134 H Estimat Average Glucose Hemoglobin A1c Calcium Magnesium Troponin I 0.026 Triglycerides Cholesterol LDL Cholesterol, Calc VLDL Cholesterol, Calc HDL Cholesterol Cholesterol/HDL Ratio 07/07/19 12:47 WBC RBC Hgb Hct MCV MCH MCHC RDW Std Deviation RDW Coeff of Caroline Plt Count MPV Immature Gran % (Auto) Neut % (Auto) Lymph % (Auto) [place] % (Auto) Eos % (Auto) Baso % (Auto) Immature Gran # (Auto) Neut # (Auto) Lymph # (Auto) [place] # (Auto) Eos # (Auto) Baso # (Auto) PT INR APTT PTT Ratio Sodium Potassium Chloride Carbon Dioxide Anion Gap BUN Creatinine Est Cr Clr Drug Dosing Est GFR ( Amer) Est GFR (Non-Af Amer) BUN/Creatinine Ratio Glucose POC Glucose Estimat Average Glucose 166 Hemoglobin A1c 7.4 H Calcium Magnesium Troponin I Triglycerides Cholesterol LDL Cholesterol, Calc VLDL Cholesterol, Calc HDL Cholesterol Cholesterol/HDL Ratio
[2019-07-07] MEDS: NITROGLYCERIN 2% OINTMENT 30GM TUBE EXT SCH ×2 (14:46→20:43)
[2019-07-07 15:30] LABS: Partial Thromboplastin Ratio 1.4; Partial Thromboplastin Time 40.2 Seconds (21.0-31.0)
[2019-07-07] MEDS ORDERED: HEPARIN IV BOLUS 3,000 UNITS in SYRINGE 0 ML IV ONE (16:30)
[2019-07-07] MEDS: ATORVASTATIN 20 MG TAB PO SCH (20:44)
[2019-07-07 23:05] LABS: Partial Thromboplastin Ratio 2.8
[2019-07-07 23:07] LABS: Partial Thromboplastin Time 77.7 Seconds (21.0-31.0)
[2019-07-07 23:10] LABS: Appearance Urine Clear (Clear); Bacteria Urine Automated Negative (Negative); Bilirubin Urine Negative (Negative); Blood Urine Negative (Negative); Cast Urine Automated 0 /lpf (0-5); Color Urine Yellow; Glucose Urine UA Negative (Negative); Ketones Urine Negative (Negative); Leukocyte Esterase Urine Trace (Negative); Nitrite Urine Negative (Negative); Protein Urine Negative (Negative); RBC Urine Automated 0-4 /hpf (0-4); Specific Gravity Urine 1.012 (1.000-1.030); Urobilinogen Urine Negative (Negative)
[2019-07-08] MEDS: NITROGLYCERIN 2% OINTMENT 30GM TUBE EXT SCH ×4 (02:10→20:04)
[2019-07-08] MEDS: LEVOTHYROXINE SODIUM 50 MCG TABLET PO SCH (05:33)
[2019-07-08 06:02] LABS: Partial Thromboplastin Time 54.7 Seconds (21.0-31.0)
[2019-07-08] MEDS: ACETAMINOPHEN 325 MG TAB PO PRN (07:24)
--- NOTE | 2019-07-08 07:40 | Hospitalist Progress Note ---
Date of Service July 08, 2019 Assessment & Plan (1) Chest pain: Atypical chest pain with associated left arm pain Elevated Troponins Left Bundle Branch Block -as per admission H and P by Dr. Chin "This is an 88-year-old female with past medical history significant for hypertension, diabetes, hyperlipidemia, hypothyroidism, senile osteoporosis, asthma in remission, allergic rhinitis, GERD, iron deficiency anemia, who lives with her son presents with chest pain. The patient says last few days she is having left sided chest pain and also left arm pain, intermittent in severity." -CTA chest: no pulmonary embolism -07/07/2019 day time: Patient's initial 2 troponins were negative. third troponin was elevated as 0.[address] Chin started patient on heparin drip. On my exam patient in the bed and feeling comfortable. No acute distress. Not having chest pain currently. She has the heparin IV running. She denies trauma to her left chest or ribs or left arm. There are no bruising or ecchymosis or skin lesions of the area. Patient breathing on room air. no abdomen pain. no vomiting. esperanza beaulieu denies other symptoms -subsequent troponins downtrended. as per cardiology evaluation by Dr. Seaman on 07/07/2019 that: Chronic left bundle branch block precludes interpretation of EKG findings and the Minimal rise in troponin (as 0.059) is likely spurious. Echocardiogram not significantly changed from prior studies. Underlying ischemic heart disease not completely excluded. -cardiology service advised to stop heparin drip after a total of 24 hours. Heparin drip to be stopped on 07/08/2019 at 8:20 AM. continue aspirin SUMMER inhibitor and statin. cardiology service may off low dose nitrates. cardiology service advises to avoid beta-blockers because of poor tolerance of beta-alvaro in the past with profound symptomatic hypotension and bradycardia during prior hospitalization History of transient ischemic attack in the past -admitting physician commented that patient had word finding difficulties a few days ago. Patient does not present with speech problems. -admission CT head: No acute intracranial findings. No change in appearance of the brain. 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 Gastroesophageal reflux disease -Continue omeprazole. Asthma -no acute exacerbation -currently in remission on albuterol, p.r.n. theophylline. Admission and Anticipated Discharge Date Admission Date: July 06, 2019 Subjective Patient seen and examined in AM. She has heparin drip running. She reported headache to nurse but no acute distress. speaking in full sentences clearly. moves all extremities. she sits up under her own power. No complaints of chest pain of arm pain. Breathing on room air. no shortness of breath. Review of Systems Review of Systems: All systems reviewed & are unremarkable except as noted in Subjective Physical Exam Constitutional: comfortable Eyes: PERRL, conjunctivae normal, anicteric sclerae EOM intact bilaterally ENMT: external ear and nose normal, oropharynx normal Neck: normal visual inspection Respiratory: normal respiratory effort, lungs clear to auscultation Cardiovascular: Rate/Rhythm: regular rate and regular rhythm Gastrointestinal (Abdomen): normal bowel sounds, soft, nontender, no hepatosplenomegaly Musculoskeletal: Head/Neck/Chest: normocephalic and head atraumatic Neurologic: PERRL, EOMI, accommodation nl, no face palsy, no dysarthria Psychiatric: A+Ox3, euthymic affect Results & Data Results & Data ([facility]) Vital Signs (Past 12 Hours) Vital Signs Temp Pulse Pulse Resp BP BP Pulse Ox 07/08/19 07:34 36.6 C 67 18 154/73 H 90 07/08/19 04:12 37 C 64 18 133/70 95 07/08/19 02:00 73 176/80 H 07/07/19 23:01 36.9 C 77 18 139/77 94 07/07/19 23:00 63 (1) Chest pain Chest pain type: unspecified Qualified Code(s): R07.9 - Chest pain, unspecified
[2019-07-08 08:18] LABS: Basophils # (auto) 0.03 K/uL (0-0.2); Basophils % (auto) 0.4 %; Eosinophils # (auto) 0.34 K/uL (0-0.5); Eosinophils % (auto) 4.2 %; Hematocrit (blood only) 32.9 % (37-47); Hemoglobin 10.9 g/dL (12.0-16.0); Immature Granulocytes # (auto) 0.02 K/uL (0.00-0.02); Immature Granulocytes % (auto) 0.2 %; Lymphocytes # (auto) 2.08 K/uL (1.2-3.4); Lymphocytes % (auto) 25.5 %; Mean Corpuscular Hemoglobin 32.2 pg (25-34); Mean Corpuscular Volume 97.1 fL (80-100); Mean Platelet Volume 9.7 fL (7.4-10.4); Monocytes # (auto) 0.42 K/uL (0.11-0.59); Monocytes % (auto) 5.2 %; Neutrophils # (auto) 5.26 K/uL (1.4-6.5); Neutrophils % (auto) 64.5 %; Platelet Count 219 K/uL (130-400); RDW Coefficient of Variation 14.4 % (11.5-14.5); RDW Standard Deviation 51.1 fL (36.4-46.3); Red Blood Count 3.39 M/uL (4.2-5.4); White Blood Count 8.15 K/uL (4.8-10.8)
[2019-07-08] MEDS: THEOPHYLLINE 400 MG EXTENDED REL TAB PO SCH (08:19)
[2019-07-08] MEDS: PANTOprazole 40 MG TAB PO SCH (08:20)
[2019-07-08] MEDS: lisinopriL 20 MG TAB PO SCH (08:20)
[2019-07-08] MEDS: ASPIRIN 81 MG ECTAB PO SCH (08:20)
[2019-07-08 08:23] LABS: Albumin Level 3.1 gm/dl (3.4-5.0); BUN Creatinine Ratio 12.7 (10-20); Calcium 8.5 mg/dl (8.5-10.1); Creatinine Clr Calc Pharmacy 27.2 ml/min; Est GFR (African American) 59.1; Potassium 3.7 mmol/L (3.5-5.1)
[2019-07-08 08:25] LABS: Albumin Globulin Ratio 0.9 (0.9-2); Bilirubin,Total 0.4 mg/dl (0.2-1); Globulin 3.6 gm/dl (2.5-4.0); Total Protein 6.7 gm/dl (6.4-8.2)
[2019-07-08 08:27] LABS: Mean Corpuscular Hgb Conc 33.1 g/dL (32-36)
--- NOTE | 2019-07-08 08:53 | Electrocardiogram Report ---
Test Reason : Blood Pressure : / mmHG Vent. Rate : 067 BPM Atrial Rate : 067 BPM P-R Int : 168 ms QRS Dur : 126 ms QT Int : 440 ms P-R-T Axes : 041 -08 149 degrees QTc Int : 464 ms Normal sinus rhythm Left bundle branch block Abnormal ECG When compared with ECG of 06-JUL-2019 19:08, (unconfirmed) No significant change Confirmed by Guzman Alegria ([id number]) on 07/08/2019 8:52:58 AM Referred By: REFERRED SELF Confirmed By:Guzman Alegria
--- NOTE | 2019-07-08 09:07 | Electrocardiogram Report ---
Test Reason : Blood Pressure : / mmHG Vent. Rate : 066 BPM Atrial Rate : 066 BPM P-R Int : 174 ms QRS Dur : 126 ms QT Int : 472 ms P-R-T Axes : 037 -09 142 degrees QTc Int : 494 ms Normal sinus rhythm Left bundle branch block Abnormal ECG When compared with ECG of 07-JUL-2019 06:33, (unconfirmed) No significant change Confirmed by Guzman Alegria ([id number]) on 07/08/2019 9:07:04 AM Referred By: REFERRED SELF Confirmed By:Guzman Alegria
--- NOTE | 2019-07-08 09:52 | Electrocardiogram Report ---
Test Reason : Blood Pressure : / mmHG Vent. Rate : 073 BPM Atrial Rate : 073 BPM P-R Int : 164 ms QRS Dur : 126 ms QT Int : 436 ms P-R-T Axes : 069 -22 140 degrees QTc Int : 480 ms Normal sinus rhythm Left bundle branch block Abnormal ECG When compared with ECG of 07-JUL-2019 15:17, (unconfirmed) No significant change Confirmed by Guzman Alegria ([id number]) on 07/08/2019 9:52:38 AM Referred By: REFERRED SELF Confirmed By:Guzman Alegria
--- NOTE | 2019-07-08 12:22 | Cardiology Progress Note ---
Date of Service July 08, 2019 Assessment & Plan (1) Atypical chest pain: Patient presented with several day history of sharp pain in the upper chest arm shoulder and neck worse with cough sneeze and arm movement. Symptoms very atypical for angina or acute coronary syndrome. Chronic left bundle branch block precludes interpretation of EKG findings. Minimal rise in troponin which I feel is likely spurious. Symptoms of been persistent for several days and still ongoing. Echocardiogram not significantly changed from prior studies. Underlying ischemic heart disease not completely excluded Patient feels improved this morning but still with pain with movement in shoulder and arm. Symptoms do not suggest acute ischemia. Telemetry however did demonstrate one short run of paroxysmal atrial fibrillation in the setting of recent TIA complaints, substantially elevated chads vasc 2 score of 6 or greater. Have discussed in detail with patient as well as her son Will initiate very low-dose beta-alvaro given past difficulties with higher dosing with metoprolol 12.5 mg p.o. daily Initiate anticoagulation with Eliquis 5 mg twice per day and discontinue aspirin Follow hemoglobin both inpatient and post hospital discharge (2) Left bundle branch block: (3) TIA (transient ischemic attack): (4) Paroxysmal atrial fibrillation: (5) Anemia due to GI blood loss: Subjective Patient seen and examined, chart, medications, telemetry reviewed. No acute decline overnight. Overall feels relatively well still pain with movement of her left shoulder and arm and neck. No fevers or chills. No neurologic complaints. Telemetry yesterday did demonstrate one short run of atrial fibrillation Review of Systems Review of Systems: All systems reviewed & are unremarkable except as noted in HPI & below Physical Exam Eyes: PERRL, conjunctivae normal, anicteric sclerae ENMT: external ear and nose normal, oropharynx normal Neck: trachea midline, no thyromegaly Respiratory: normal respiratory effort, lungs clear to auscultation Cardiovascular: Rate/Rhythm: regular rate and regular rhythm Heart Sounds: normal S1 and normal S2; no gallop Palpation: normal PMI; no heave Vessels: no JVD and no carotid bruit Extremities: no edema Musculoskeletal: Head/Neck/Chest: + abnormal palpation of chest wall Results & Data Vital Signs (Past 12 Hours) Vital Signs Temp Pulse Pulse Resp BP BP Pulse Ox 07/08/19 12:09 36.7 C 78 18 120/72 95 07/08/19 09:52 72 07/08/19 07:34 36.6 C 67 18 154/73 H 90 07/08/19 04:12 37 C 64 18 133/70 95 07/08/19 02:00 73 176/80 H Laboratory Results Laboratory Results - last 24 hr 07/07/19 07/07/19 07/07/19 12:47 12:47 15:09 WBC RBC Hgb Hct MCV MCH MCHC RDW Std Deviation RDW Coeff of Caroline Plt Count MPV Immature Gran % (Auto) Neut % (Auto) Lymph % (Auto) [place] % (Auto) Eos % (Auto) Baso % (Auto) Immature Gran # (Auto) Neut # (Auto) Lymph # (Auto) [place] # (Auto) Eos # (Auto) Baso # (Auto) APTT 40.2 H PTT Ratio 1.4 Sodium Potassium Chloride Carbon Dioxide Anion Gap BUN Creatinine Est Cr Clr Drug Dosing Est GFR ( Amer) Est GFR (Non-Af Amer) BUN/Creatinine Ratio Glucose Estimat Average Glucose 166 Hemoglobin A1c 7.4 H Calcium Magnesium Total Bilirubin AST ALT Alkaline Phosphatase Troponin I 0.026 Total Protein Albumin Globulin Albumin/Globulin Ratio Urine Color Urine Appearance Urine pH Ur Specific [place] Urine Protein Urine Glucose (UA) Urine Ketones Urine Blood Urine Nitrite Urine Bilirubin Urine Urobilinogen Ur Leukocyte Esterase Urine WBC (Auto) Urine RBC (Auto) U Hyaline Cast (Auto) U Epithel Cells (Auto) Urine Bacteria (Auto) 07/07/19 07/07/19 07/07/19 20:01 20:45 22:33 WBC RBC Hgb Hct MCV MCH MCHC RDW Std Deviation RDW Coeff of Caroline Plt Count MPV Immature Gran % (Auto) Neut % (Auto) Lymph % (Auto) [place] % (Auto) Eos % (Auto) Baso % (Auto) Immature Gran # (Auto) Neut # (Auto) Lymph # (Auto) [place] # (Auto) Eos # (Auto) Baso # (Auto) APTT 77.7 H* PTT Ratio 2.8 Sodium Potassium Chloride Carbon Dioxide Anion Gap BUN Creatinine Est Cr Clr Drug Dosing Est GFR ( Amer) Est GFR (Non-Af Amer) BUN/Creatinine Ratio Glucose Estimat Average Glucose Hemoglobin A1c Calcium Magnesium Total Bilirubin AST ALT Alkaline Phosphatase Troponin I 0.016 Total Protein Albumin Globulin Albumin/Globulin Ratio Urine Color Yellow Urine Appearance Clear Urine pH 5.0 Ur Specific [place] 1.012 Urine Protein Negative Urine Glucose (UA) Negative Urine Ketones Negative Urine Blood Negative Urine Nitrite Negative Urine Bilirubin Negative Urine Urobilinogen Negative Ur Leukocyte Esterase Trace H Urine WBC (Auto) 1-5 Urine RBC (Auto) 0-4 U Hyaline Cast (Auto) 0 U Epithel Cells (Auto) 10-20 H Urine Bacteria (Auto) Negative 07/08/19 07/08/19 07/08/19 05:24 05:29 05:29 WBC 8.15 RBC 3.39 L Hgb 10.9 L Hct 32.9 L MCV 97.1 MCH 32.2 MCHC 33.1 RDW Std Deviation 51.1 H RDW Coeff of Caroline 14.4 Plt Count 219 MPV 9.7 Immature Gran % (Auto) 0.2 Neut % (Auto) 64.5 Lymph % (Auto) 25.5 [place] % (Auto) 5.2 Eos % (Auto) 4.2 Baso % (Auto) 0.4 Immature Gran # (Auto) 0.02 Neut # (Auto) 5.26 Lymph # (Auto) 2.08 [place] # (Auto) 0.42 Eos # (Auto) 0.34 Baso # (Auto) 0.03 APTT 54.7 H* PTT Ratio 2.0 Sodium 141 Potassium 3.7 Chloride 106 Carbon Dioxide 30 Anion Gap 5.0 BUN 13 Creatinine 1.00 Est Cr Clr Drug Dosing 27.2 Est GFR ( Amer) 59.1 Est GFR (Non-Af Amer) 51.0 BUN/Creatinine Ratio 12.7 Glucose 116 H Estimat Average Glucose Hemoglobin A1c Calcium 8.5 Magnesium 2.0 Total Bilirubin 0.4 AST 10 L ALT 12 Alkaline Phosphatase 69 Troponin I Total Protein 6.7 Albumin 3.1 L Globulin 3.6 Albumin/Globulin Ratio 0.9 Urine Color Urine Appearance Urine pH Ur Specific [place] Urine Protein Urine Glucose (UA) Urine Ketones Urine Blood Urine Nitrite Urine Bilirubin Urine Urobilinogen Ur Leukocyte Esterase Urine WBC (Auto) Urine RBC (Auto) U Hyaline Cast (Auto) U Epithel Cells (Auto) Urine Bacteria (Auto)
[2019-07-08] MEDS: METOPROLOL TARTRATE 25 MG TAB PO SCH (12:56)
[2019-07-08] MEDS: APIXABAN 2.5 MG TAB PO SCH ×2 (12:56→20:04)
[2019-07-08] MEDS ORDERED: METFORMIN HCL 500 MG TAB PO SCH (15:30)
[2019-07-08] MEDS: ATORVASTATIN 20 MG TAB PO SCH (20:04)
[2019-07-08] MEDS: ROPINIROLE HCL 0.25 MG TABLET PO SCH (20:05)
[2019-07-08] MEDS: TRAZODONE HCL 100 MG TAB PO SCH (20:05)
[2019-07-09] MEDS: NITROGLYCERIN 2% OINTMENT 30GM TUBE EXT SCH ×2 (02:02→08:16)
[2019-07-09] MEDS: LEVOTHYROXINE SODIUM 50 MCG TABLET PO SCH (05:51)
[2019-07-09 06:21] LABS: Partial Thromboplastin Time 26.9 Seconds (21.0-31.0)
[2019-07-09] MEDS: APIXABAN 2.5 MG TAB PO SCH (08:15)
[2019-07-09] MEDS: METOPROLOL TARTRATE 25 MG TAB PO SCH (08:15)
[2019-07-09] MEDS: lisinopriL 20 MG TAB PO SCH (08:15)
[2019-07-09] MEDS: PANTOprazole 40 MG TAB PO SCH (08:16)
[2019-07-09] MEDS: THEOPHYLLINE 400 MG EXTENDED REL TAB PO SCH (08:16)
[2019-07-09] MEDS ORDERED: LOPERAMIDE HCL 2 MG CAP PO PRN (08:57)
[2019-07-09 09:24] LABS: Basophils # (auto) 0.03 K/uL (0-0.2); Basophils % (auto) 0.4 %; Eosinophils # (auto) 0.28 K/uL (0-0.5); Eosinophils % (auto) 3.6 %; Hematocrit (blood only) 33.3 % (37-47); Hemoglobin 10.7 g/dL (12.0-16.0); Immature Granulocytes # (auto) 0.03 K/uL (0.00-0.02); Immature Granulocytes % (auto) 0.4 %; Lymphocytes # (auto) 1.77 K/uL (1.2-3.4); Lymphocytes % (auto) 22.5 %; Mean Corpuscular Hemoglobin 31.3 pg (25-34); Mean Corpuscular Volume 97.4 fL (80-100); Mean Platelet Volume 9.7 fL (7.4-10.4); Monocytes % (auto) 5.1 %; Neutrophils # (auto) 5.34 K/uL (1.4-6.5); Platelet Count 226 K/uL (130-400); RDW Coefficient of Variation 14.3 % (11.5-14.5); RDW Standard Deviation 51.1 fL (36.4-46.3); Red Blood Count 3.42 M/uL (4.2-5.4); White Blood Count 7.85 K/uL (4.8-10.8)
[2019-07-09 09:31] LABS: BUN Creatinine Ratio 15.1 (10-20); Calcium 8.6 mg/dl (8.5-10.1); Potassium 3.9 mmol/L (3.5-5.1)
[2019-07-09 10:15] LABS: Mean Corpuscular Hgb Conc 32.1 g/dL (32-36)
--- NOTE | 2019-07-09 10:47 | Hospitalist Progress Note ---
Date of Service July 09, 2019 Assessment & Plan (1) Chest pain: Atypical chest pain with associated left arm pain Elevated Troponin Left Bundle Branch Block -as per admission H and P by Dr. Chin "This is an 88-year-old female with past medical history significant for hypertension, diabetes, hyperlipidemia, hypothyroidism, senile osteoporosis, asthma in remission, allergic rhinitis, GERD, iron deficiency anemia, who lives with her son presents with chest pain. The patient says last few days she is having left sided chest pain and also left arm pain, intermittent in severity." -CTA chest: no pulmonary embolism -07/07/2019 day time: Patient's initial 2 troponins were negative. third troponin was elevated as 0.[address] Chin started patient on heparin drip. On my exam patient in the bed and feeling comfortable. No acute distress. Not having chest pain currently. She has the heparin IV running. She denies trauma to her left chest or ribs or left arm. There are no bruising or ecchymosis or skin lesions of the area. Patient breathing on room air. no abdomen pain. no vomiting. pat ient denies other symptoms -subsequent troponins downtrended. as per cardiology evaluation by Dr. Seaman on 07/07/2019 that: Chronic left bundle branch block precludes interpretation of EKG findings and the Minimal rise in troponin (as 0.059) is likely spurious. Echocardiogram not significantly changed from prior studies. Underlying ischemic heart disease not completely excluded. -cardiology service advised to stop heparin drip after a total of 24 hours. Heparin drip to be stopped on 07/08/2019 at 8:20 AM Paroxysmal atrial fibrillation Anemia (history of acute GI bleed in the past, no current GI bleed on this admission) -On review of telemetry from 07/07/2019 Dr. Seaman concerned of paroxysmal atrial fibrillation and he started on 07/08/2019 the patient on Eliquis (Apixaban) 2.5 mg BID anticoagulation to prevent stroke risk and he also started low dose beta alvaro of metoprolol tartrate 12.5 mg daily and advised further telemetry monitoring as inpatient -07/09/2019: currently sinus rhythm, Dr. Seaman advises discharge on Eliquis (Apixaban) and Metoprolol tartrate 12.5 mg daily for heart rate control of paroxysmal atrial fibrillation and stroke prevention -Because patient has history of GI bleed, the patient should have repeat CBC performed with primary care doctor after the hospital discharge. discharge day Hgb is 10.7 -Patient has appointment for primary care doctor 07/18/2019 10:10 AM Provider Dulce Maria Quintero DO Department Internal Medicine [facility]. -[facility] appointment line also called for appointment for followup with cardiology clinic with Dr. Jabari Seaman or his colleagues at [facility] History of transient ischemic attack in the past -admitting physician commented that patient had word finding difficulties a few days ago. Patient does not present with speech problems. -admission CT head: No acute intracranial findings. No change in appearance of the brain. 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 Gastroesophageal reflux disease -Continue omeprazole. Asthma -no acute exacerbation -currently in remission on albuterol, p.r.n. theophylline. Electronic Prescriptions sent to [facility] at [address] [place] [address]. Admission and Anticipated Discharge Date Admission Date: July 06, 2019 Subjective Patient denies chest pain. She did point to left shoulder tenderness but she demonstrates full range of motion while doing that. No acute telemetry events. Breathing on room air. no shortness of breath. no abdominal pain. no vomiting. no fevers Review of Systems Review of Systems: All systems reviewed & are unremarkable except as noted in Subjective Physical Exam Constitutional: comfortable Eyes: PERRL, conjunctivae normal, anicteric sclerae EOM intact bilaterally ENMT: external ear and nose normal, oropharynx normal Neck: normal visual inspection Respiratory: normal respiratory effort, lungs clear to auscultation Cardiovascular: Rate/Rhythm: regular rhythm Gastrointestinal (Abdomen): normal bowel sounds, soft, nontender, no hepatosplenomegaly Musculoskeletal: Head/Neck/Chest: normocephalic and head atraumatic Neurologic: PERRL, EOMI, accommodation nl, no face palsy, no dysarthria Psychiatric: A+Ox3, euthymic affect Results & Data Results & Data ([facility]) Vital Signs (Past 12 Hours) Vital Signs Temp Pulse Pulse Resp BP BP Pulse Ox 07/09/19 07:26 62 07/09/19 07:23 36.6 C 65 18 128/73 90 07/09/19 04:05 36.8 C 67 18 148/72 H 92 07/08/19 23:02 36.9 C 80 18 161/76 H 91 (1) Chest pain Chest pain type: unspecified Qualified Code(s): R07.9 - Chest pain, unspecified
--- NOTE | 2019-07-09 10:58 | Discharge Summary ---
Date of Service July 09, 2019 Admission HPI Per Admitting Provider CHIEF COMPLAINT: Chest pain. HISTORY OF PRESENT ILLNESS: This is an 88-year-old female with past medical history significant for hypertension, diabetes, hyperlipidemia, hypothyroidism, senile osteoporosis, asthma in remission, allergic rhinitis, GERD, iron deficiency anemia, who lives with her son presents with chest pain. The patient says last few days she is having left sided chest pain and also left arm pain, intermittent in severity. No alleviating or aggravating factors, constant pain. The pain is more when she coughs or sneezes, lifting the arms up she has more pain. She ambulates okay. Denies any shortness of breath. No cough, no fever, no chills. Hard of hearing. No headache, no earache. She has runny nose but attributes to allergies. No sore throat. Appetite is okay. No nausea, no abdominal pain. Normal bowel and bladder movements. No rash, no swelling in the legs. Currently resting comfortably and hemodynamically stable. Also, there is question of difficulty of finding words few days back. The patient states that she just couldn't remember the words. She has history of similar symptoms in the past and thought to be from TIA. CT of the head is unremarkable in the ER. Currently, speech is clear. 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 of insulin Anemia (history of acute GI bleed in the past, no current GI bleed on this admission) Discharge Exam Constitutional comfortable Eyes PERRL, conjunctivae normal, anicteric sclerae EOM intact bilaterally ENMT external ear and nose normal, oropharynx normal Neck normal visual inspection Respiratory normal respiratory effort, lungs clear to auscultation Cardiovascular Rate/Rhythm: regular rhythm Gastrointestinal (Abdomen) normal bowel sounds, soft, nontender, no hepatosplenomegaly Musculoskeletal Head/Neck/Chest: normocephalic and head atraumatic Neurologic PERRL, EOMI, accommodation nl, no face palsy, no dysarthria Psychiatric A+Ox3, euthymic affect Discharge Data Allergies Allergy/AdvReac Type Severity Reaction Status Date / Time No Known Allergies Allergy Verified 07/06/19 20:29 Consultations 07/06/19 20:44 ED Decision to Admit Stat 07/06/19 23:21 Consult Case Management - Discharge Planning Routine 07/07/19 08:00 Consult Cardiology Routine Ordered Studies 07/06/19 19:19 CT head/brain wo con Stat 07/06/19 23:21 CT angio chest PE protocol Urgent Hospital Course (1) Chest pain: Atypical chest pain with associated left arm pain Elevated Troponin Left Bundle Branch Block -as per admission H and P by Dr. Chin "This is an 88-year-old female with past medical history significant for hypertension, diabetes, hyperlipidemia, hypothyroidism, senile osteoporosis, asthma in remission, allergic rhinitis, GERD, iron deficiency anemia, who lives with her son presents with chest pain. The patient says last few days she is having left sided chest pain and also left arm pain, intermittent in severity." -CTA chest: no pulmonary embolism -07/07/2019 day time: Patient's initial 2 troponins were negative. third troponin was elevated as 0.[address] Chin started patient on heparin drip. On my exam patient in the bed and feeling comfortable. No acute distress. Not having chest pain currently. She has the heparin IV running. She denies trauma to her left chest or ribs or left arm. There are no bruising or ecchymosis or skin lesions of the area. Patient breathing on room air. no abdomen pain. no vomiting. patient denies other symptoms -subsequent troponins downtrended. as per cardiology evaluation by Dr. Seaman on 07/07/2019 that: Chronic left bundle branch block precludes interpretation of EKG findings and the Minimal rise in troponin (as 0.059) is likely spurious. Echocardiogram not significantly changed from prior studies. Underlying ischemic heart disease not completely excluded. -cardiology service advised to stop heparin drip after a total of 24 hours. Heparin drip to be stopped on 07/08/2019 at 8:20 AM Paroxysmal atrial fibrillation Anemia (history of acute GI bleed in the past, no current GI bleed on this admission) -On review of telemetry from 07/07/2019 Dr. Seaman concerned of paroxysmal atrial fibrillation and he started on 07/08/2019 the patient on Eliquis (Apixaban) 2.5 mg BID anticoagulation to prevent stroke risk and he also started low dose beta alvaro of metoprolol tartrate 12.5 mg daily and advised further telemetry monitoring as inpatient -07/09/2019: currently sinus rhythm, Dr. Seaman advises discharge on Eliquis (Apixaban) and Metoprolol tartrate 12.5 mg daily for heart rate control of paroxysmal atrial fibrillation and stroke prevention -Because patient has history of GI bleed, the patient should have repeat CBC performed with primary care doctor after the hospital discharge. discharge day Hgb is 10.7 -Patient has appointment for primary care doctor 07/18/2019 10:10 AM Provider Dulce Maria Quintero DO Department Internal Medicine [facility]. -[facility] appointment line also called for appointment for followup with cardiology clinic with Dr. Jabari Seaman or his colleagues at [facility] History of transient ischemic attack in the past -admitting physician commented that patient had word finding difficulties a few days ago. Patient does not present with speech problems. -admission CT head: No acute intracranial findings. No change in appearance of the brain. 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 Gastroesophageal reflux disease -Continue omeprazole. Asthma -no acute exacerbation -currently in remission on albuterol, p.r.n. theophylline. Electronic Prescriptions sent to [facility] at [address] [place] [id number]. 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 -Metformin 500 mg daily for diabetes (HbA1c is 7.4) -Loperamide 2 mg every 8 hours as needed for loose stool (16 capsules prescribed) -Metoprolol tartrate 12.5 mg daily for heart rate control and paroxysmal atrial fibrillation -Because patient is started on Apixaban (Eliquis)2. 5 mg twice a day to prevent stroke risk and has history of GI bleed, the patient should have repeat CBC performed with primary care doctor after the hospital discharge. discharge day Hgb is 10.7 Patient has appointment for primary care doctor 07/18/2019 10:10 AM Provider Dulce Maria Quintero DO Department Internal Medicine [facility]. [facility] appointment line also called for appointment for followup with cardiology clinic with Dr. Jabari Seaman or his colleagues at [facility] Pending Studies at Discharge: No Stand-Alone Forms: My [facility] [employer], Smoking Cessation Medications and DC Order Prescriptions: New metformin [Glucophage] 500 mg Tablet 500 mg PO DAILYBD 30 Days Qty: 30 RF: 0 loperamide 2 mg Capsule 2 mg PO Q8H PRN (Reason: loose stool) 4 Days Qty: 12 RF: 0 metoprolol tartrate 25 mg Tablet 12.5 mg PO QAM 30 Days Qty: 15 RF: 0 Eliquis 2.5 mg Tablet 2.5 mg PO BID 30 Days Qty: 60 RF: 0 Continued atorvastatin 20 mg tablet 20 mg PO HS RF: 0 theophylline 400 mg tablet extended release 24 hr 200 mg PO DAILY RF: 0 lisinopril 20 mg tablet 20 mg PO DAILY RF: 0 levothyroxine 50 mcg tablet 50 mcg PO DAILY RF: 0 omeprazole 20 mg capsule,delayed release(DR/EC) 20 mg PO DAILY RF: 0 trazodone 100 mg Tablet 100 mg PO QPM RF: 0 ropinirole [Requip] 0.25 mg Tablet 0.5 mg PO QPM RF: 0 albuterol sulfate 90 mcg/actuation Hfa Aerosol Inhaler 2 puff INHALATION Q6H PRN (Reason: Shortness Of Breath Or Wheezing) RF: 0 Discontinued Aspirin Low Dose 81 mg 81 mg PO DAILY RF: 0 Discharge Orders: Discharge Order (Routine); Ordered 07/09/19 Ordered By: Riki Jaramillo Admission Data Admit Date/Time: 07/06/19 21:51 Attending Provider: Riki Jaramillo Admit Provider: Baldomero Chin Primary Care Provider: Dulce Maria Quintero Other Providers: Baldomero Chin ; Rafa Salguero ; Blayne Shah ; Jabari Seaman ; César Delgado ; Nilay Conklin ; Adan Mercedes ; Charmaine Nava ; Magi Nicolas ; Michael Mcmanus
== END 2019-07-09 14:23 | disposition home or self-care (01) | DRG 313 ==
LOC: ED 18:52 → SUATTDRO 21:51 → 2W 21:51

== ENCOUNTER 2019-11-21 23:42 | Observation (INO) ==
[2019-11-22] MEDS ORDERED: SODIUM CHLORIDE 0.9% 1000ML 500 ML IV ONE (00:01)
--- NOTE | 2019-11-22 00:11 | Emergency Department Note ---
Impression & Plan Acute left-sided weakness, Arm pain, left ED Provider Note Name: LONDON WORTHY Age: 89 Sex: F Arrives Via: Walk-In Informant: Patient, Son ED Provider: Pollo Jauregui MD Chief Complaint: Left arm pain Impression: Acute Left-Sided Weakness Left arm Pain Medical Decision Makin y rold female with PAfib no on anticoag due to GI bleed, previous stroke, amongst other medical issues arrives for evaluation of left arm pain. Quickly became apparent that she has weakness in left leg and arm and even has mild left facial droop. Symptoms ongoing for well over last 12 hours and not TPA candidate. She was dehydrated on exam thus given some IV fluids with possibly mild improvement in symptoms. Left arm is unremarkable other than weakness and there is no evidence injury on xray nor exam. She does not have evidence of dvt nor arterial issue by exam. I noted that she was coughing a bit and I am not convinced she may have some swallowing issues, thus with GI bleed history and concern for aspiration will hold off on giving ASA dose at this time. BP is a bit bumped but does not need treatment at this time. She is stable, has no clear evidence of infection and willing for hospitalization. I suspect she has had CVA, or is having exacerbation of previous issues due to exhaustion/dehydration. Prior Medical Record and Triage/Nursing Notes reviewed by Me Additional history obtained from chart/son Differentials:Infection, dehydration, metabolic abnormality, hypo/hyperglycemia, electrolyte disturbance, anemia, hypoxia, cardiac sources, intracerebral event, toxicologic, neurologic, as well as other pathologies. Vital Signs: reviewed and remarkable for HTN Interventions: NSS bolus 500mL IV Labs:Reviewed and remarkable for no significant abnormalities Imaging:[facility] Radiologist interpretation reviewed by me: CT head no acute findings X ray results are stated below per my interpretation: Chest: 1 view: No infiltrate, no effusion, normal cardiac border, there is questionable nodule left mid lung field Xray Results per my interpretation: Left Humerus: 2 view: no fracture no dislocation EKG:Per My Interpretation: Indication Left sided weakness: NSR 62 bpm with LBBB and qtc 475. No Ectopy. No Ischemia. Compared to EKG 07/08/19, no significant changes. Cardiac/Tele Monitoring: Cardiac Monitoring: An Order was placed for continuous cardiac monitoring. The monitor shows a rate of 60 with a normal sinus rhythm. Consults:Dr Chin Plan: Disposition:Hospitalization. Condition: Good Blood pressure:Elevated - Referred to Hospitalist Prescriptions:none PDMP: n/a History of Present Illness:89 yr old female with history of CVA, GI Bleed, Parox Afib not on anticoagulation, PSVT arrives for evaluation of left sided weakness. Patient awoke this morning and notes she hasn't been able to use her left leg correctly. Associated with left arm weakness and headache. Headache much more severe earlier in evening with diffuse pain, though resolved with Tylenol. This evening she has been having pain in left upper arm. Denies chest pain, sob, palpitations, nausea, vomiting, syncope. She has not had any falls nor trauma. She has been eating OK without difficulty swallowing. She does not take any blood thinners given previous GI bleed. Son notes this is similar to stroke she had about 1 year ago. ROS: See above HPI for pertinent positives & negatives. A total of 10 systems reviewed and were otherwise negative. Past Medical History:CVA, GI Bleed, Parox Afib, PSVT Past Surgical History:None Family History:None Social History:Lives with son, , no etoh/drugs/tobacco Home Medications:extensive, see below Allergies:NKDA Vitals:Blood Pressure: 151/73, Pulse 60, RR 17, T 36.5C, O2 96% on RA Physical Exam: GENERAL: Patient is elderly and dehydrated appearing and in minimal distress. EYES: No scleral icterus, unremarkable pupils. ENT: Mucous membranes moist, no nasal congestion. NECK: No masses appreciated, nomeningismus, trachea is midline. RESPIRATORY: No dyspnea. Clear to auscultation and equal bilaterally. No wheeze, no rhonchi. CARDIOVASCULAR: Regular rate and rhythm.No murmurs, rubs, gallops appreciated. GASTROINTESTINAL: Abdomen soft, non-tender, no peritonitis.Bowel sounds positive.No masses appreciated. BACK: No midline tenderness, no CVA tenderness EXTREMITIES: Vague TTP over left mid humerus laterally, no swelling/bruising. Distal pulses intact and no swelling. Normal motion all extremities, no cyanosis, no edema. NEUROLOGIC: Ataxia left upper arm with decreased strength left hand. Left mild facial droop. 4/5 proximal left leg strength. Appears mildly confused but she is alert and oriented. SKIN: No rash, no jaundice, no diaphoresis. PSYCH: Appropriate GCS: 15 ED Course: Times/Reassessments: Stable, feeling well, mild improvement with IV fluids Pollo Jauregui MD Past Med/Surg History Medical History (Updated 11/22/19 @ 04:59 by Pollo Jauregui MD) Diverticulitis GI bleed Hemorrhoid No pertinent family history PSVT (paroxysmal supraventricular tachycardia) Stroke Surgical History No pertinent past surgical history Social History Smoking Status: Never smoker Hx Alcohol Use: No Hx Substance Use: No Preferred Language: Luxembourgish Communication Ability: Effective Intelligence Officer Basic Required: No Beliefs That Will Affect Care: None marital status: / Current Living Situation: Family Current Living Situation Comment: son and [id number] Feels Safe at Home: Yes Allergies Allergies Allergy/AdvReac Type Severity Reaction Status Date / Time No Known Allergies Allergy Verified 11/22/19 00:52 Home Meds Home Medications Medication Instructions Recorded Confirmed ropinirole [Requip] 0.5 mg PO QPM 02/19/18 11/22/19 trazodone 100 mg PO QPM 02/19/18 11/22/19 atorvastatin 20 mg PO HS 07/06/19 11/22/19 levothyroxine 50 mcg PO DAILY 07/06/19 11/22/19 theophylline 200 mg PO DAILY 07/06/19 11/22/19 Iron Suppliment 125 mg PO DAILY 11/22/19 11/22/19 cholecalciferol (vitamin D3) 25 mcg PO DAILY 11/22/19 11/22/19 [Vitamin D3] cyanocobalamin (vitamin B-12) 1,000 mcg PO DAILY 11/22/19 11/22/19 [Vitamin B-12] metformin 500 mg PO DAILY 11/22/19 11/22/19 metoprolol tartrate 12.5 mg PO DAILY 11/22/19 11/22/19 omeprazole 40 mg PO DAILY 11/22/19 11/22/19 Results & Data (ED) Vital Signs Vital Signs - 24 hr 11/21/19 23:49 11/22/19 01:26 11/22/19 03:01 Temperature 36.5 C Temperature Source Oral Pulse Rate 67 61 Pulse Rate [Apical] 60 Pulse Rate from SpO2 Sensor Respiratory Rate 18 18 21 Respiratory Effort / Characteristics Non-Labored Spontaneous Respiratory Depth Normal Respiratory Pattern Regular Blood Pressure 135/73 151/73 H Blood Pressure [Left Arm] 160/68 H Blood Pressure Mean 93 109 Blood Pressure Mean [Left Arm] 98 Pulse Oximetry 99 94 95 Oxygen Delivery Method Room Air Room Air Room Air Sepsis Recent Fever Within 48 Hours No Sepsis New/Unexplained Change in Mental Status No Sepsis Action Taken by Nursing No Action Required 11/22/19 04:00 Temperature Temperature Source Pulse Rate 60 Pulse Rate [Apical] Pulse Rate from SpO2 Sensor 60 Respiratory Rate 17 Respiratory Effort / Characteristics Respiratory Depth Respiratory Pattern Blood Pressure Blood Pressure [Left Arm] Blood Pressure Mean Blood Pressure Mean [Left Arm] Pulse Oximetry 96 Oxygen Delivery Method Sepsis Recent Fever Within 48 Hours Sepsis New/Unexplained Change in Mental Status Sepsis Action Taken by Nursing Laboratory Data Result diagrams: 11/22/19 00:13 11/22/19 01:09 Lab Results 11/22/19 11/22/19 11/22/19 Range/Units 00:13 00:13 00:13 WBC 8.81 (4.8-10.8) K/uL RBC 3.85 L (4.2-5.4) M/uL Hgb 11.3 L (12.0-16.0) g/dL Hct 36.2 L (37-47) % MCV 94.0 (80-100) fL MCH 29.4 (25-34) pg MCHC 31.2 L (32-36) g/dL RDW Std Deviation 51.9 H (36.4-46.3) fL RDW Coeff of Caroline 15.3 H (11.5-14.5) % Plt Count 329 (130-400) K/uL MPV 9.5 (7.4-10.4) fL Immature Gran % (Auto) 0.2 % Neut % (Auto) 60.5 % Lymph % (Auto) 32.9 % [place] % (Auto) 3.6 % Eos % (Auto) 2.6 % Baso % (Auto) 0.2 % Neut # (Auto) 5.32 (1.4-6.5) K/uL Lymph # (Auto) 2.90 (1.2-3.4) K/uL [place] # (Auto) 0.32 (0.11-0.59) K/uL Eos # (Auto) 0.23 (0-0.5) K/uL Baso # (Auto) 0.02 (0-0.2) K/uL Immature Gran # (Auto) 0.02 (0.00-0.02) K/uL PT 10.3 (9.0-12.0) Seconds INR 1.0 (0.9-1.1) Sodium 136 (136-145) mmol/L Potassium (3.5-5.1) mmol/L Chloride 100 (98-107) mmol/L Carbon Dioxide 30 (21-32) mmol/L Anion Gap 6.0 (3-11) BUN 13 (7-18) mg/dl Creatinine 0.88 (0.6-1.2) mg/dl Est Cr Clr Drug Dosing Not Reportable Est GFR ( Amer) 68.5 Est GFR (Non-Af Amer) 59.1 BUN/Creatinine Ratio 15.0 (10-20) Glucose 99 (70-99) mg/dl Calcium 9.3 (8.5-10.1) mg/dl Magnesium (1.8-2.4) mg/dl Total Bilirubin 0.3 (0.2-1) mg/dl Direct Bilirubin (0-0.2) mg/dl AST (15-37) U/L ALT 14 (12-78) U/L Alkaline Phosphatase 87 (45-117) U/L Troponin I < 0.015 (0-0.045) ng/ml Total Protein 7.7 (6.4-8.2) gm/dl Albumin 3.5 (3.4-5.0) gm/dl TSH 4.720 H (0.300-4.500) uIu/ml Urine Color Urine Appearance (Clear) Urine pH (4.5-7.5) Ur Specific [place] (1.000-1.030) Urine Protein (Negative) Urine Glucose (UA) (Negative) Urine Ketones (Negative) Urine Blood (Negative) Urine Nitrite (Negative) Urine Bilirubin (Negative) Urine Urobilinogen (Negative) Ur Leukocyte Esterase (Negative) Urine WBC (Auto) (0-5) /hpf Urine RBC (Auto) (0-4) /hpf U Hyaline Cast (Auto) (0-5) /lpf U Epithel Cells (Auto) (0-5) /lpf Urine Bacteria (Auto) (Negative) 11/22/19 11/22/19 Range/Units 01:09 01:45 WBC (4.8-10.8) K/uL RBC (4.2-5.4) M/uL Hgb (12.0-16.0) g/dL Hct (37-47) % MCV (80-100) fL MCH (25-34) pg MCHC (32-36) g/dL RDW Std Deviation (36.4-46.3) fL RDW Coeff of Caroline (11.5-14.5) % Plt Count (130-400) K/uL MPV (7.4-10.4) fL Immature Gran % (Auto) % Neut % (Auto) % Lymph % (Auto) % [place] % (Auto) % Eos % (Auto) % Baso % (Auto) % Neut # (Auto) (1.4-6.5) K/uL Lymph # (Auto) (1.2-3.4) K/uL [place] # (Auto) (0.11-0.59) K/uL Eos # (Auto) (0-0.5) K/uL Baso # (Auto) (0-0.2) K/uL Immature Gran # (Auto) (0.00-0.02) K/uL PT (9.0-12.0) Seconds INR (0.9-1.1) Sodium (136-145) mmol/L Potassium 3.9 (3.5-5.1) mmol/L Chloride (98-107) mmol/L Carbon Dioxide (21-32) mmol/L Anion Gap (3-11) BUN (7-18) mg/dl Creatinine (0.6-1.2) mg/dl Est Cr Clr Drug Dosing Est GFR ( Amer) Est GFR (Non-Af Amer) BUN/Creatinine Ratio (10-20) Glucose (70-99) mg/dl Calcium (8.5-10.1) mg/dl Magnesium 1.7 L (1.8-2.4) mg/dl Total Bilirubin (0.2-1) mg/dl Direct Bilirubin < 0.1 (0-0.2) mg/dl AST 11 L (15-37) U/L ALT (12-78) U/L Alkaline Phosphatase (45-117) U/L Troponin I (0-0.045) ng/ml Total Protein (6.4-8.2) gm/dl Albumin (3.4-5.0) gm/dl TSH (0.300-4.500) uIu/ml Urine Color Yellow Urine Appearance Clear (Clear) Urine pH 5.0 (4.5-7.5) Ur Specific [place] 1.008 (1.000-1.030) Urine Protein Negative (Negative) Urine Glucose (UA) Negative (Negative) Urine Ketones Negative (Negative) Urine Blood Negative (Negative) Urine Nitrite Negative (Negative) Urine Bilirubin Negative (Negative) Urine Urobilinogen Negative (Negative) Ur Leukocyte Esterase 2+ H (Negative) Urine WBC (Auto) 10-30 H (0-5) /hpf Urine RBC (Auto) 0-4 (0-4) /hpf U Hyaline Cast (Auto) 1-5 (0-5) /lpf U Epithel Cells (Auto) >30 H (0-5) /lpf Urine Bacteria (Auto) Negative (Negative) Administered Medications Discontinued Medications Sodium Chloride (Nss 1000ml) 500 mls @ 999 mls/hr IV .Q31M ONE Stop: 11/22/19 00:31 Last Infusion: 11/22/19 02:48 Dose: 0 mls/hr Documented by: [id number] Admin: 11/22/19 00:23 Dose: 999 mls/hr Documented by: [id number] Ioversol (Optiray 320 125ml) 119 ml IV ONCE ONE Stop: 11/22/19 04:11 Last Admin: 11/22/19 04:10 Dose: 119 ml Documented by: [id number] Discharge Plan Visit Data Chief Complaint: Neuro Symptoms/Deficit Stated Complaint: PAIN IN LEFT ARM AND LEG ED Provider: Pollo Jauregui Discharge Problem: Acute left-sided weakness, Arm pain, left Patient Disposition: Admitted As Inpatient Discharge Instructions Interventions: ED Discharge Assessment Last Done: 11/22/19 04:54 Forms Stand Alone Forms: My [facility] [place] Prescriptions Prescriptions: No Action atorvastatin 20 mg tablet 20 mg PO HS RF: 0 theophylline 400 mg tablet extended release 24 hr 200 mg PO DAILY RF: 0 levothyroxine 50 mcg tablet 50 mcg PO DAILY RF: 0 trazodone 100 mg Tablet 100 mg PO QPM RF: 0 ropinirole [Requip] 0.25 mg Tablet 0.5 mg PO QPM RF: 0 metformin 500 mg tablet 500 mg PO DAILY RF: 0 omeprazole 40 mg capsule,delayed release(DR/EC) 40 mg PO DAILY RF: 0 metoprolol tartrate 25 mg tablet 12.5 mg PO DAILY RF: 0 cyanocobalamin (vitamin B-12) [Vitamin B-12] 1,000 mcg Tablet 1,000 mcg PO DAILY RF: 0 cholecalciferol (vitamin D3) [Vitamin D3] 25 mcg (1,000 unit) Capsule 25 mcg PO DAILY RF: 0 Iron Suppliment 125 mg PO DAILY RF: 0 Referrals Referrals: Dulce Maria Quintero DO [Primary Care Provider] -
[2019-11-22 00:25] LABS: Basophils # (auto) 0.02 K/uL (0-0.2); Basophils % (auto) 0.2 %; Eosinophils # (auto) 0.23 K/uL (0-0.5); Eosinophils % (auto) 2.6 %; Hematocrit (blood only) 36.2 % (37-47); Hemoglobin 11.3 g/dL (12.0-16.0); Immature Granulocytes # (auto) 0.02 K/uL (0.00-0.02); Immature Granulocytes % (auto) 0.2 %; Lymphocytes % (auto) 32.9 %; Mean Corpuscular Hemoglobin 29.4 pg (25-34); Mean Corpuscular Hgb Conc 31.2 g/dL (32-36); Mean Platelet Volume 9.5 fL (7.4-10.4); Monocytes # (auto) 0.32 K/uL (0.11-0.59); Monocytes % (auto) 3.6 %; Neutrophils # (auto) 5.32 K/uL (1.4-6.5); Neutrophils % (auto) 60.5 %; Platelet Count 329 K/uL (130-400); RDW Coefficient of Variation 15.3 % (11.5-14.5); RDW Standard Deviation 51.9 fL (36.4-46.3); Red Blood Count 3.85 M/uL (4.2-5.4); White Blood Count 8.81 K/uL (4.8-10.8)
[2019-11-22 00:33] LABS: Prothrombin Time 10.3 Seconds (9.0-12.0)
[2019-11-22 00:47] LABS: Alanine Aminotransferase 14 U/L (12-78); Albumin Level 3.5 gm/dl (3.4-5.0); Blood Urea Nitrogen 13 mg/dl (7-18); Calcium 9.3 mg/dl (8.5-10.1); Carbon Dioxide 30 mmol/L (21-32); Chloride 100 mmol/L (98-107); Est GFR (African American) 68.5; Est GFR (Non-African American) 59.1; Glucose 99 mg/dl (70-99); Sodium 136 mmol/L (136-145)
[2019-11-22 01:01] LABS: Alkaline Phosphatase 87 U/L (45-117); Bilirubin,Total 0.3 mg/dl (0.2-1); Total Protein 7.7 gm/dl (6.4-8.2); Troponin I < 0.015 ng/ml (0-0.045)
[2019-11-22 01:37] LABS: Potassium 3.9 mmol/L (3.5-5.1)
[2019-11-22 01:42] LABS: Aspartate Aminotransferase 11 U/L (15-37); Bilirubin Direct < 0.1 mg/dl (0-0.2); Magnesium 1.7 mg/dl (1.8-2.4)
[2019-11-22 02:04] LABS: Appearance Urine Clear (Clear); Bacteria Urine Automated Negative (Negative); Bilirubin Urine Negative (Negative); Blood Urine Negative (Negative); Color Urine Yellow; Epithelial Cell Urine Auto >30 /lpf (0-5); Glucose Urine UA Negative (Negative); Ketones Urine Negative (Negative); Leukocyte Esterase Urine 2+ (Negative); Nitrite Urine Negative (Negative); Protein Urine Negative (Negative); RBC Urine Automated 0-4 /hpf (0-4); Specific Gravity Urine 1.008 (1.000-1.030); Urobilinogen Urine Negative (Negative)
[2019-11-22] MEDS ORDERED: OPTIRAY 320 125ml IV ONE (04:10)
--- NOTE | 2019-11-22 04:41 | History and Physical Report ---
DATE OF ADMISSION: 11/21/2019 CHIEF COMPLAINT: Left-sided weakness. HISTORY OF PRESENT ILLNESS: This 89-year-old female with past medical history significant for type 2 diabetes, hypothyroidism, hyperlipidemia, chronic kidney disease stage III, nonallergic rhinitis, asthma in remission, allergic rhinitis, GERD, hypertension, paroxysmal SVT, PAF, iron deficiency anemia, restless leg syndrome, generalized osteoarthritis, history of TIA, history of GI bleeds, history of colon polyps and gastric polyps, history of insomnia, hypothyroidism. The patient lives with his son and umuzmxce-kg-lwt who presents with left sided weakness. The patient seem to woke up with a headache yesterday morning on 11/21/2019 and also some questionable left hand pain and weakness. She has had headache all day and in the nighttime at 10pm when she was going to bed, her vnwaosgp-zv-ijq noticed that she is dragging her left leg. Her son who is a regional tanker truck driver, is off the town, braxledi-[id number]-gmg called her another son and she was brought in here. Stroke alert was not called as the patient seem to do not know exact time of symptoms and initial CAT scan is okay. Currently resting comfortably and hemodynamically stable. She is very hard of hearing and her son is in the room who helped with H and P. Currently there is no headache, no blurred vision, no earache. She always had runny nose from her allergies. No cough, no sore throat, no difficulty swallowing. No fevers, no chest pain, no shortness of breath, no nausea, no abdominal pain. She denies any blood in the stools or black stools. Normal bladder movements. No rash seen. She has history of paroxysmal atrial fibrillation, recently account manager relief stopped her Eliquis due to concern for GI bleed because her outpatient recent labs showed hemoglobin of 9.2. She is supposed to get stool for Hemoccult studies done, has not submitted the sample yet. ALLERGIES: No known drug allergies. PAST MEDICAL HISTORY: As mentioned above. PAST SURGICAL HISTORY: Left knee arthroplasty, colonoscopies, EGDs, removal of the ovary and oviducts, removal of cataracts, total abdominal hysterectomy with removal of tubes. MEDICATIONS: The patient currently on omeprazole 40 mg p.o. daily, levothyroxine 50 mcg p.o. daily, vitamin D 5000 units p.o. daily, atorvastatin 20 mg p.o. daily, theophylline 200 mg p.o. daily, Glucophage 500 mg p.o. daily, Imodium 4 mg p.o. every 8 hours p.r.n., Lopressor 12.5 mg p.o. daily, trazodone 100 mg p.o. at bedtime p.r.n., Requip 0.5 mg p.o. at bedtime, Vitron-C 1 tablet daily, vitamin B12 1000 mcg p.o. daily. FAMILY HISTORY: Significant for mother at age of 95. Father at age of 75 from an MVA. SOCIAL HISTORY: , lives with her son. No smoking, no alcohol, no drug use. REVIEW OF SYMPTOMS: As per HPI. Rest of review of systems negative. PHYSICAL EXAMINATION: GENERAL: The patient is old and frail, hard of hearing, not in acute distress. VITAL SIGNS: Temperature 36.5, pulse 60, respiratory rate 18, blood pressure 160/68, oxygen 94% on room air. HEENT: Pupils equal, round, reactive to light. Extraocular muscles intact. Oral mucosa moist. Tongue midline. NECK: Supple, no neck masses. CARDIOVASCULAR: S1, S2 heard, regular rate and rhythm, no murmur, no gallop. RESPIRATORY SYSTEM: Normal AP diameter. No accessory muscle use. No wheezing, no crackles. ABDOMEN: Soft, bowel sounds present, nontender. No distention. CENTRAL NERVOUS SYSTEM: Alert and awake, oriented to name and place, could not tell the dates. Recent and remote memory intact. Speech clear,No facial droop, Power 5/5 in all extremities except for 4/5 in left upper extremity. Coordination of movements normal. The patient has pronator drift. Able to lift and hold her lower extremities. Sensation is intact. EXTREMITIES: No edema, no erythema. LABORATORY DATA: WBC 8.8, hemoglobin 11.3, hematocrit 36.2, platelets 329. PT 10.3, INR 1. Sodium 136, potassium 3.9, chloride 100, bicarbonate 30, BUN 13, creatinine 0.8, serum glucose 99, calcium 9.3, magnesium 1.7, total bilirubin 0.3, direct bilirubin less than 0.1, AST 11, ALT 14, alkaline phosphatase 87. Troponin I less than 0.015. TSH 4.7. Urinalysis, +2 leukocyte esterase. Urine bacteria negative. CT of the head, preliminary report, no acute findings. Chest x-ray, no acute findings. EKG: Normal sinus rhythm with rate of 62, left bundle branch block seen. ASSESSMENT AND PLAN: This is an 89-year-old female who presents with stroke-like symptoms. 1. Stroke-like symptoms with left sided weakness, maybe questionable weakness of the left hand in the morning and the vctecvew-mt-poh noticed that she is dragging the leg in the night time at 10:00 p.m., initial CAT scan was okay. Speech is clear. No facial droop seen. Examination shows a slight weakness of the left upper extremity. We will do the full stroke workup with MRI scan, CTA of the head and neck, echocardiogram. Neuro consult, PT/OT and speech evaluation in a.m. and monitor in the tele floor. The patient is not on anticoagulation because of questionable GI bleed. We will start on aspirin. 2. History of paroxysmal atrial fibrillation. She is on low-dose beta alvaro. She was on Eliquis, which was stopped recently because of concern for GI bleed because of outpatient labs showed hemoglobin of 9.2 g/dL, but hemoglobin is 11.3 today. We will do stool for Hemoccult and consult cardio for any recommendations to restart Eliquis. 3. Paroxysmal supraventricular tachycardia on low dose Lopressor. We will monitor. 4. History of hypertension, on Lopressor. Monitor blood pressure. The patient was having hypotensive episode at home. 5. Gastroesophageal reflux disease. Continue Prilosec. 6. History of anemia. Currently, hemoglobin is 11.3, patient's recent hemoglobin in outpatient labs showed hemoglobin of 9.2 on 10/29/2019. We will check stool for Hemoccult. 7. Diabetes. Hold metformin, place insulin sliding scale. Follow the blood sugars. 8. Hypothyroidism. Continue levothyroxine. We will repeat the thyroid profile. 9. Restless leg syndrome, continue Requip. 10. Asthma, in remission. Currently stable. Continue theophylline. 11. Hyperlipidemia. Continue statin. Follow the lipid profile. 12. Deep vein thrombosis prophylaxis, sequential compression devices. DISPOSITION: Admit to tele floor. PT and OT prior to discharge. Expect to discharge home and follow with family doctor. Level 1 full code. MTDD
[2019-11-22] MEDS ORDERED: GADOBUTROL 65ML VIAL IV ONE (06:02)
[2019-11-22] MEDS ORDERED: MAGNESIUM SULFATE / D5W 1 GM/100 ML BAG IV ONE (06:14)
[2019-11-22] MEDS ORDERED: NITROGLYCERIN SL 0.4 MG/TAB TAB SL PRN (06:14)
[2019-11-22] MEDS ORDERED: PHARMACIST DISCHARGE MED REC CONSULT PRN (06:14)
[2019-11-22] MEDS ORDERED: ONDANSETRON INJ 2 MG/ML 2 ML VIAL IV PRN (06:14)
[2019-11-22] MEDS ORDERED: ACETAMINOPHEN 325 MG TAB PO PRN (06:14)
[2019-11-22] MEDS ORDERED: POLYETHYLENE (MIRALAX) 17 GM PACK PO PRN (06:14)
[2019-11-22] MEDS: LEVOTHYROXINE SODIUM 50 MCG TABLET PO SCH (06:43)
[2019-11-22] MEDS: SODIUM CHLORIDE 0.9% 1000ML 1,000 ML IV SCH ×2 (06:43→19:31)
--- NOTE | 2019-11-22 07:10 | CT Scan Report ---
CT angio head w con CLINICAL HISTORY: Acute stroke LEFT-SIDED WEAKNESS TECHNIQUE: CT angiography of the head was performed in a dynamic helical fashion during intravenous a dministration of 119 cc of Optiray 320. MIP imaging was performed. A dose lowering technique was util ized adhering to the principles of ALARA. CT DOSE: 487.24 mGy.cm COMPARISON STUDY: 2017 FINDINGS: There are no lesion suspicious for aneurysm. There are no major intracranial branch occlusi ons. The dural venous sinuses appear patent. IMPRESSION: Unremarkable CT angiography the brain ACT 112: Negative or not required by law. Electronically signed by: Giuseppe Martinez M.D. 11/22/2019 7:09 AM
--- NOTE | 2019-11-22 07:15 | CT Scan Report ---
HEAD CT NONCONTRAST CT DOSE: 537.48 mGy.cm HISTORY: headache, >12 hrs left arm/leg weakness TECHNIQUE: Multiaxial CT images of the head were performed without the use of intravenous contrast. A utomated exposure control was utilized for this study. A dose lowering technique was utilized adheri ng to the principles of ALARA. Comparison: Head CT 07/06/2019. Findings: The paranasal sinuses and mastoid air cells are clear. The calvarium and skull base are int act. There is no mass, hematoma, midline shift, acute infarct. White matter hypodensity is nonspecifi c but suggestive of microvascular ischemic change. The ventricles and sulci demonstrate mild age-rela chen involutional changes. Impression: No acute intracranial abnormality. Atrophy and microvascular ischemic changes. ACT 112: Negative or not required by law. Electronically signed by: Vamsi Arango M.D. 11/22/2019 7:14 AM
--- NOTE | 2019-11-22 07:20 | CT Scan Report ---
NECK CTA HISTORY: Confusion. Stroke symptoms. Left-sided weakness. TECHNIQUE: Multiaxial CT images of the neck were performed following the intravenous administration o f contrast to evaluate the major cervical vessels. Maximum intensity projection images were also obta ined. All measurements were calculated based on NASCET criteria. A dose lowering technique was utili zed adhering to the principles of ALARA. COMPARISON STUDY: None. FINDINGS: The aortic arch and proximal great vessels are widely patent. There is no significant sten osis, occlusion, or dissection identified within the bilateral common carotid, internal carotid, or v ertebral arteries. Mild calcified plaque at the aortic arch, proximal bilateral subclavian arteries, and bilateral carotid bifurcations. IMPRESSION: No significant stenosis, occlusion, or dissection identified within the carotid or vertebral arteries . ACT 112: Negative or not required by law. Electronically signed by: Vamsi Arango M.D. 11/22/2019 7:18 AM
--- NOTE | 2019-11-22 07:21 | XRay Report ---
XR chest 1V portable CLINICAL HISTORY: stroke like symptoms, cough COMPARISON STUDY: 07/06/2019 FINDINGS: The heart is borderline enlarged. There is aortic tortuosity. There is mild interstitial th ickening. There is no lobar consolidation. There is no overt failure. There are no pleural effusions. There is a 14 mm left midlung zone opacity possibly related to healing rib fracture.[ IMPRESSION: 14 mm left midlung zone opacity, possibly related to a healing rib fracture. Clinical cor relation in this regard is advocated. Dedicated views of the ribs could be obtained in follow-up as d eemed clinically appropriate ACT 112: Negative or not required by law. Electronically signed by: Giuseppe Martinez M.D. 11/22/2019 7:20 AM
--- NOTE | 2019-11-22 07:22 | Magnetic Resonance Report ---
Brain MRI WITH AND WITHOUT CONTRAST HISTORY: Left-sided weakness. Confusion. TECHNIQUE: Multiplanar multisequence MRI of the brain was performed both before and after the intrave nous administration of contrast. COMPARISON STUDY: Head CT 11/22/2019. FINDINGS: There is no mass, hematoma, midline shift, or acute infarct. The paranasal sinuses are herminia r. The mastoid air cells are clear. The ventricles and sulci demonstrate mild age-related involutiona l changes. Extensive patchy areas of T2 hyperintensity seen within the periventricular and subcortica l white matter are nonspecific but suggestive of advanced microvascular ischemic changes. The major v ascular flow voids at the skull base are well-maintained. Motion artifact. IMPRESSION: No acute intracranial abnormality. Extensive patchy areas of T2 hyperintensity seen within the perive ntricular and subcortical white matter are nonspecific but favor advanced microvascular ischemic ayoub ge. ACT 112: Negative or not required by law. Electronically signed by: Vamsi Arango M.D. 11/22/2019 7:21 AM
--- NOTE | 2019-11-22 07:25 | XRay Report ---
XR humerus LT 2V CLINICAL HISTORY: Left arm pain COMPARISON: None. DISCUSSION: No fractures or dislocations are visualized. Degenerative changes are present within the AC joint. No destructive lesions are delineated IMPRESSION: No fractures identified. ACT 112: Negative or not required by law. Electronically signed by: Giuseppe Martinez M.D. 11/22/2019 7:24 AM
[2019-11-22] MEDS: THEOPHYLLINE 400 MG EXTENDED REL TAB PO SCH (08:16)
[2019-11-22] MEDS: CHOLECALCIFEROL 1,000 UNITS 25 MCG TAB PO SCH (08:17)
[2019-11-22] MEDS: FERROUS FUMARATE/ASCORBIC ACID 65 MG CAPCR PO SCH (08:17)
[2019-11-22] MEDS: CYANOCOBALAMIN 500 MCG TABLET (VITAMIN B-12) PO SCH (08:17)
[2019-11-22] MEDS: ASPIRIN 81 MG ECTAB PO SCH (08:17)
[2019-11-22] MEDS: METOPROLOL TARTRATE 25 MG TAB PO SCH (08:17)
[2019-11-22] MEDS: PANTOprazole 40 MG TAB PO SCH (08:17)
[2019-11-22] MEDS: INSULIN ASPART 100 UNITS/ML 3 ML PEN SC SCH ×4 (09:30→20:41)
--- NOTE | 2019-11-22 09:57 | Gastrointestinal Consultation ---
Date of Consultation November 22, 2019 Assessment & Plan (1) Acute left-sided weakness: 89-year-old female who presents with stroke-like symptoms - GI is consulted given her history of GIB on AC in the past. She had similar presentation in 2018, inpatient AC was started and she developed painless rectal bleeding. Underwent EGD/Colon at that time and an actively bleeding colon polyp was treated endoscopy. She later developed recurrent lower GI bleed and was [place] [facility] remained stable and did not have any further complications. She has remained on ASA. In July she was started on Eliquis. This was held in October given a 3 pt drop in HGB without any evidence of GIB. Her HGB has returned to baseline, 11 w/o BUN elevation with no current absolute contraindication to starting AC - Appreciate neurology evaluation - Appreciate cardiology evaluation - Ok to use ASA - No acute indication for EGD/Colonoscopy - Discussed risk/benefits of fci AC use - Trend HGB - Monitor and document bowel movements - No GI contraindication to continuation of diet Thank you for allowing us to participate in the care of this patient. Please call with any acute changes, questions or concerns. Please see addendum below with additional recommendation from my supervising physician. Supervising Physician Co-Signing Physician Notes I have personally seen and examined the patient with GREG Dominguez. Her note reflects my exam and findings. I agree with her impression and plan. No evidence of worrisome GI bleeding. No indication for repeat endoscopic w/u. George Steve M.D. History of Present Illness Reason for Consultation: anemia on eliquis, getting neuro workup Requesting Physician: Markell Attending Physician: Ciaran Guillaume MD History of Present Illness 89-year-old female w/ history of T2DM, CKD-3, hypothyroidism, hyperlipidemia, nonallergic rhinitis, asthma in remission, allergic rhinitis, GERD, hypertension, paroxysmal SVT, PAF, [place], restless leg syndrome, OA, history of TIA, history of GI bleeds in 2018, history of colon polyps and gastric polyps, history of insomnia, hypothyroidism who presented through the ED w/ BYRD and left sided weakness. She has history of paroxysmal atrial fibrillation, recently machine filler stopped her Eliquis due to concern for GI bleed because her outpatient recent labs showed hemoglobin of 9.2 from baseline 12. At that time she denied black/bloody stools/emesis. Has remained off of AC. Today, she is feeling well. Tolerated her regular breakfast (toast/eggs) Denies abd pain. no nausea/vomiting. Bowels moving well. Brown stools. No black or bloody stools. Denies weight loss. No fever, chills, CP, SOB. Colonoscopy 2018: Non-thrombosed external hemorrhoids found on perianal exam. - The examined portion of the ileum was normal. - Red Blood in the entire examined colon with clots. - One 10 mm, actively bleeding polyp at the splenic flexure, removed with a hot snare. Resected and retrieved. Clip (MR conditional) was placed. - Diverticulosis in the sigmoid colon. - Non-bleeding external and internal hemorrhoids. EGD 2018: Normal esophagus. - Hiatal hernia. - A single large gastric polyp. Resected by EMR and retrieved. Treated with argon plasma coagulation (APC) at the edges. Clips (MR conditional) were placed. - Normal duodenal bulb and second portion of the duodenum. - Mucosal resection was performed (EMR). Resection and retrieval were complete. Allergies Allergy/AdvReac Type Severity Reaction Status Date / Time No Known Allergies Allergy Verified 11/22/19 00:52 Home Medications Home Medications Medication Instructions Recorded Confirmed Type ropinirole [Requip] 0.5 mg PO QPM 02/19/18 11/22/19 History trazodone 100 mg PO QPM 02/19/18 11/22/19 History atorvastatin 20 mg PO HS 07/06/19 11/22/19 History levothyroxine 50 mcg PO DAILY 07/06/19 11/22/19 History theophylline 200 mg PO DAILY 07/06/19 11/22/19 History Iron Suppliment 125 mg PO DAILY 11/22/19 11/22/19 History cholecalciferol (vitamin D3) 25 mcg PO DAILY 11/22/19 11/22/19 History [Vitamin D3] cyanocobalamin (vitamin B-12) 1,000 mcg PO DAILY 11/22/19 11/22/19 History [Vitamin B-12] metformin 500 mg PO DAILY 11/22/19 11/22/19 History metoprolol tartrate 12.5 mg PO DAILY 11/22/19 11/22/19 History omeprazole 40 mg PO DAILY 11/22/19 11/22/19 History Patient History Medical History Diverticulitis GI bleed Hemorrhoid No pertinent family history PSVT (paroxysmal supraventricular tachycardia) Stroke Surgical History No pertinent past surgical history Social History Smoking Status: Never smoker Hx Alcohol Use: No Hx Substance Use: No Preferred Language: Micronesian Communication Ability: Effective 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 Beliefs That Will Affect Care: None marital status: / Current Living Situation: Spouse Current Living Situation Comment: son and [id number] Other Information That Helps Us Care for You: No Feels Safe at Home: Yes Review of Systems Constitutional: no fever, no chills and no fatigue Respiratory: no cough and no dyspnea Cardiovascular: no chest pain and no chest pain at rest Gastrointestinal: no abdominal pain, no coffee ground emesis, no hematemesis, no blood in stools and no melena Physical Exam Constitutional: well developed and well nourished; no acute distress and not ill appearing Neck: trachea midline Respiratory: normal respiratory effort; no respiratory distress Cardiovascular: Rate/Rhythm: regular rate and regular rhythm Gastrointestinal (Abdomen): normal bowel sounds, soft, nontender, no hepatosplenomegaly Skin: no rashes, warm and dry Results & Data ([facility]) Vital Signs (Past 12 Hours) Vital Signs Temp Pulse Pulse Resp BP BP BP 11/22/19 07:39 36.6 C 70 18 142/72 H 11/22/19 06:28 36.5 C 66 18 156/83 H 11/22/19 04:00 60 17 11/22/19 03:01 61 21 151/73 H 11/22/19 01:26 60 18 160/68 H 11/21/19 23:49 36.5 C 67 18 135/73 Pulse Ox 11/22/19 07:39 95 11/22/19 06:28 93 11/22/19 04:00 96 11/22/19 03:01 95 11/22/19 01:26 94 11/21/19 23:49 99 Laboratory Results 11/22/19 11/22/19 11/22/19 Range/Units 06:54 01:45 01:09 WBC (4.8-10.8) K/uL RBC (4.2-5.4) M/uL Hgb (12.0-16.0) g/dL Hct (37-47) % MCV (80-100) fL MCH (25-34) pg MCHC (32-36) g/dL RDW Std Deviation (36.4-46.3) fL RDW Coeff of Caroline (11.5-14.5) % Plt Count (130-400) K/uL MPV (7.4-10.4) fL Immature Gran % (Auto) % Neut % (Auto) % Lymph % (Auto) % [place] % (Auto) % Eos % (Auto) % Baso % (Auto) % Neut # (Auto) (1.4-6.5) K/uL Lymph # (Auto) (1.2-3.4) K/uL [place] # (Auto) (0.11-0.59) K/uL Eos # (Auto) (0-0.5) K/uL Baso # (Auto) (0-0.2) K/uL Immature Gran # (Auto) (0.00-0.02) K/uL PT (9.0-12.0) Seconds INR (0.9-1.1) Sodium (136-145) mmol/L Potassium 3.9 (3.5-5.1) mmol/L Chloride (98-107) mmol/L Carbon Dioxide (21-32) mmol/L Anion Gap (3-11) BUN (7-18) mg/dl Creatinine (0.6-1.2) mg/dl Est Cr Clr Drug Dosing Est GFR ( Amer) Est GFR (Non-Af Amer) BUN/Creatinine Ratio (10-20) Glucose (70-99) mg/dl POC Glucose 134 H (70-99) mg/dl Calcium (8.5-10.1) mg/dl Magnesium 1.7 L (1.8-2.4) mg/dl Total Bilirubin (0.2-1) mg/dl Direct Bilirubin < 0.1 (0-0.2) mg/dl AST 11 L (15-37) U/L ALT (12-78) U/L Alkaline Phosphatase (45-117) U/L Troponin I (0-0.045) ng/ml Total Protein (6.4-8.2) gm/dl Albumin (3.4-5.0) gm/dl TSH (0.300-4.500) uIu/ml Urine Color Yellow Urine Appearance Clear (Clear) Urine pH 5.0 (4.5-7.5) Ur Specific [place] 1.008 (1.000-1.030) Urine Protein Negative (Negative) Urine Glucose (UA) Negative (Negative) Urine Ketones Negative (Negative) Urine Blood Negative (Negative) Urine Nitrite Negative (Negative) Urine Bilirubin Negative (Negative) Urine Urobilinogen Negative (Negative) Ur Leukocyte Esterase 2+ H (Negative) Urine WBC (Auto) 10-30 H (0-5) /hpf Urine RBC (Auto) 0-4 (0-4) /hpf U Hyaline Cast (Auto) 1-5 (0-5) /lpf U Epithel Cells (Auto) >30 H (0-5) /lpf Urine Bacteria (Auto) Negative (Negative) 11/22/19 11/22/19 11/22/19 Range/Units 00:13 00:13 00:13 WBC 8.81 (4.8-10.8) K/uL RBC 3.85 L (4.2-5.4) M/uL Hgb 11.3 L (12.0-16.0) g/dL Hct 36.2 L (37-47) % MCV 94.0 (80-100) fL MCH 29.4 (25-34) pg MCHC 31.2 L (32-36) g/dL RDW Std Deviation 51.9 H (36.4-46.3) fL RDW Coeff of Caroline 15.3 H (11.5-14.5) % Plt Count 329 (130-400) K/uL MPV 9.5 (7.4-10.4) fL Immature Gran % (Auto) 0.2 % Neut % (Auto) 60.5 % Lymph % (Auto) 32.9 % [place] % (Auto) 3.6 % Eos % (Auto) 2.6 % Baso % (Auto) 0.2 % Neut # (Auto) 5.32 (1.4-6.5) K/uL Lymph # (Auto) 2.90 (1.2-3.4) K/uL [place] # (Auto) 0.32 (0.11-0.59) K/uL Eos # (Auto) 0.23 (0-0.5) K/uL Baso # (Auto) 0.02 (0-0.2) K/uL Immature Gran # (Auto) 0.02 (0.00-0.02) K/uL PT 10.3 (9.0-12.0) Seconds INR 1.0 (0.9-1.1) Sodium 136 (136-145) mmol/L Potassium (3.5-5.1) mmol/L Chloride 100 (98-107) mmol/L Carbon Dioxide 30 (21-32) mmol/L Anion Gap 6.0 (3-11) BUN 13 (7-18) mg/dl Creatinine 0.88 (0.6-1.2) mg/dl Est Cr Clr Drug Dosing Not Reportable Est GFR ( Amer) 68.5 Est GFR (Non-Af Amer) 59.1 BUN/Creatinine Ratio 15.0 (10-20) Glucose 99 (70-99) mg/dl POC Glucose (70-99) mg/dl Calcium 9.3 (8.5-10.1) mg/dl Magnesium (1.8-2.4) mg/dl Total Bilirubin 0.3 (0.2-1) mg/dl Direct Bilirubin (0-0.2) mg/dl AST (15-37) U/L ALT 14 (12-78) U/L Alkaline Phosphatase 87 (45-117) U/L Troponin I < 0.015 (0-0.045) ng/ml Total Protein 7.7 (6.4-8.2) gm/dl Albumin 3.5 (3.4-5.0) gm/dl TSH 4.720 H (0.300-4.500) uIu/ml Urine Color Urine Appearance (Clear) Urine pH (4.5-7.5) Ur Specific [place] (1.000-1.030) Urine Protein (Negative) Urine Glucose (UA) (Negative) Urine Ketones (Negative) Urine Blood (Negative) Urine Nitrite (Negative) Urine Bilirubin (Negative) Urine Urobilinogen (Negative) Ur Leukocyte Esterase (Negative) Urine WBC (Auto) (0-5) /hpf Urine RBC (Auto) (0-4) /hpf U Hyaline Cast (Auto) (0-5) /lpf U Epithel Cells (Auto) (0-5) /lpf Urine Bacteria (Auto) (Negative)
--- NOTE | 2019-11-22 11:09 | Cardiology Consultation ---
Date of Consultation November 22, 2019 Assessment & Plan (1) Acute left-sided weakness: (2) Paroxysmal atrial fibrillation: (3) Anemia due to GI blood loss: (4) TIA (transient ischemic attack): MRI negative for acute ischemic event. CTA of the head and neck without vascular occlusion. No neurologic deficit per physical exam currently. With history of GI bleeding, recent decline in hemoglobin, patient is high risk for bleeding complications related to chronic anticoagulation. Eliquis will remain on hold. GI consultation pending regarding further evaluation of anemia and history of GI bleeding. Patient may begin low-dose aspirin at this time. No other medication changes currently. Thank you for allowing me to participate in the care of your patient. History of Present Illness Reason for Consultation: Possible TIA, ? restart eliquis Requesting Physician: Dr. Abhishek Chin Attending Physician: Ciaran Guillaume MD History of Present Illness 89-year-old female presented to the emergency department secondary to left arm discomfort and weakness. Noted to have left upper and lower extremity weakness in the ER. MRI negative for cerebrovascular accident. Patient recently evaluated by the undersigned in clinic 10/29/2019. CBC performed during that visit demonstrated a 3 g drop in hemoglobin to 9.2. Eliquis subsequently discontinued. Due to concerns regarding recurrent GI bleeding. She was hospitalized for GI bleed in February 2018. Currently, patient resting comfortably. She is confused and oriented to person only. Able to move her left upper and lower extremities without restriction. Denies chest or arm discomfort currently. No signs/symptoms of GI blood loss. Hemoglobin 11.3 on admission. Eliquis on hold for the past 3 weeks. Recently evaluated by primary care. Lisinopril discontinued due to borderline hypotension and fatigue. She offers no concerns/complaints at this time. Allergies Allergy/AdvReac Type Severity Reaction Status Date / Time No Known Allergies Allergy Verified 11/22/19 00:52 Home Medications Home Medications Medication Instructions Recorded Confirmed Type ropinirole [Requip] 0.5 mg PO QPM 02/19/18 11/22/19 History trazodone 100 mg PO QPM 02/19/18 11/22/19 History atorvastatin 20 mg PO HS 07/06/19 11/22/19 History levothyroxine 50 mcg PO DAILY 07/06/19 11/22/19 History theophylline 200 mg PO DAILY 07/06/19 11/22/19 History Iron Suppliment 125 mg PO DAILY 11/22/19 11/22/19 History cholecalciferol (vitamin D3) 25 mcg PO DAILY 11/22/19 11/22/19 History [Vitamin D3] cyanocobalamin (vitamin B-12) 1,000 mcg PO DAILY 11/22/19 11/22/19 History [Vitamin B-12] metformin 500 mg PO DAILY 11/22/19 11/22/19 History metoprolol tartrate 12.5 mg PO DAILY 11/22/19 11/22/19 History omeprazole 40 mg PO DAILY 11/22/19 11/22/19 History Patient History Medical History (Updated 11/22/19 @ 23:49 by Ciaran Guillaume MD) Asthma Diabetes mellitus type 2 with complications Diverticulitis Dyslipidemia GI bleed Hemorrhoid Hypothyroidism PSVT (paroxysmal supraventricular tachycardia) Stroke Surgical History No pertinent past surgical history Social History Smoking Status: Never smoker Hx Alcohol Use: No Hx Substance Use: No Preferred Language: Kazakh Communication Ability: Effective 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 Required: No Beliefs That Will Affect Care: None marital status: / Current Living Situation: Spouse Current Living Situation Comment: son and [id number] Other Information That Helps Us Care for You: No Feels Safe at Home: Yes Review of Systems Review of Systems: All systems reviewed & are unremarkable except as noted in HPI & below Physical Exam Constitutional: well developed and well nourished; no acute distress Respiratory: normal respiratory effort, lungs clear to auscultation Auscultation: no crackles, no rales, no rhonchi and no wheezes Cardiovascular: Rate/Rhythm: regular rate and regular rhythm Heart Sounds: normal S1, normal S2 and + murmur (1/6 systolic ejection murmur heard best at the right second intercostal space.) Vessels: radial pulses present; no JVD and no carotid bruit Extremities: no edema Gastrointestinal (Abdomen): Inspection/Auscultation: abdomen normal to inspection and normal bowel sounds; abdomen not distended Percussion/Palpation: abdomen soft; abdomen nontender, no guarding and abdomen not rigid Musculoskeletal: no cyanosis or clubbing, extremities motor strength 5/5 Skin: no rashes, warm and dry Neurologic: moves all extremities; no focal motor deficits Speech / Cognition: normal speech Motor/Sensory: no tremor Psychiatric: Orientation: alert Affect: euthymic affect Insight: + poor insight Results & Data ([facility]) Vital Signs (Past 12 Hours) Vital Signs Temp Pulse Pulse Resp BP BP BP 11/22/19 07:39 36.6 C 70 18 142/72 H 11/22/19 06:28 36.5 C 66 18 156/83 H 11/22/19 04:00 60 17 11/22/19 03:01 61 21 151/73 H 11/22/19 01:26 60 18 160/68 H 11/21/19 23:49 36.5 C 67 18 135/73 Pulse Ox 11/22/19 07:39 95 11/22/19 06:28 93 11/22/19 04:00 96 11/22/19 03:01 95 11/22/19 01:26 94 11/21/19 23:49 99
--- NOTE | 2019-11-22 12:19 | Consultation Report ---
DATE OF CONSULTATION: 11/22/2019 NEUROLOGY CONSULTATION NOTE CHIEF COMPLAINT: Left-sided weakness. HISTORY OF PRESENT ILLNESS: An 89-year-old woman with a past medical history significant for type 2 diabetes, chronic kidney disease stage III, hypertension, paroxysmal atrial fibrillation, and prior history of transient ischemic attack, admitted to the hospital on 11/21/2019 for acute-onset left-sided weakness. The patient woke up on the with a headache and questionable left hand pain and weakness. She had a headache all day long. Around 10:00 p.m. when she was going to bed, her [id number] noticed that she was dragging her left leg. A stroke alert was called upon arrival to the Emergency Department. A CT head noncontrast was performed upon arrival, which did not show evidence of an acute hemorrhage or ischemic stroke. The patient did not receive IV TPA. She was admitted to the hospitalist service for further evaluation. Neurology was consulted for evaluation of stroke. ALLERGIES: No known drug allergies. PAST MEDICAL HISTORY: Hypertension, hyperlipidemia, type 2 diabetes, hypothyroidism, chronic kidney disease stage III, asthma, allergic rhinitis, gastroesophageal reflux disease, paroxysmal supraventricular tachycardia, paroxysmal atrial fibrillation, iron-deficiency anemia, restless legs syndrome, osteoarthritis, and history of transient ischemic attack. Of note, the patient also has a history of gastrointestinal bleed. HOME MEDICATIONS: Omeprazole 40 mg daily, Synthroid 50 mcg daily, vitamin D, Lipitor 20 mg daily, theophylline 20 mg daily, Imodium 4 mg as needed, Lopressor 12.5 mg daily, trazodone 100 mg at bedtime, vitamin B12, Requip 0.5 mg at bedtime. PAST SURGICAL HISTORY: Left knee arthroplasty, colonoscopy, EGD, oophorectomy, cataract surgery, hysterectomy. FAMILY HISTORY: Her father at the age of 75 from a motor vehicle accident. No known family history otherwise. Her mother at the age of 95. SOCIAL HISTORY: She is , lives with her son. She is a nonsmoker, denies any alcohol. No polysubstance abuse history. REVIEW OF SYSTEMS: All 10-point review of systems was reviewed and negative except as noted above in the HPI. PHYSICAL EXAMINATION: VITAL SIGNS: Blood pressure 141/59, pulse is 53, respiratory rate 18, temperature is 36.5 degrees Celsius, oxygen saturation is 91% on room air. GENERAL: She appears normally developed, in no acute distress. HEENT: Head and face is normocephalic and atraumatic. Normal eyelids and normal conjunctivae. NECK: Supple. LUNGS: Normal respiratory effort. CARDIOVASCULAR: Normal cardiac pulses. ABDOMEN: Nondistended. SKIN: No skin rash or lesion noted. NEUROPSYCHIATRIC: Normal mood and affect. She is awake, alert and oriented to person, place and time. Attention is normal. Knowledge is appropriate. Comprehension is intact. She is following commands. She is able to repeat. No dysarthria. No visual defect on confrontation. Pupils are symmetric. Extraocular muscles are intact. Facial sensation intact. No facial asymmetry. Intact hearing. Palate is symmetric. Good shoulder shrug. Tongue is midline. Gait is deferred. No ataxia with [id number] testing. Intact to light touch in regards to sensation. Normal muscle tone. Muscle exam 5/5 in the upper and lower extremities. Reflexes, negative Rosa sign. No ankle clonus. DIAGNOSTIC TESTING AND LABORATORY VALUES: WBC is 8.81, hemoglobin is 11.3, platelet count is 329. INR 1.0. Blood glucose is 130, magnesium 1.7, which is low. Sodium is 136, potassium is 3.9, chloride is 100, carbon dioxide is 30, BUN is 13, creatinine is 0.88, AST is 11, ALT is 14. Troponin is negative. TSH is elevated at 4.72. Urinalysis shows clear yellow fluid, 2+ leukocyte esterase, 10-30 WBCs, greater than 30 epithelial cells, negative bacteria. Urine culture is pending. IMAGING: Head CT noncontrast shows no acute intracranial abnormality. Atrophy and microvascular ischemic changes. X-ray of the humerus shows no fracture. MRI of the brain with and without contrast shows no acute intracranial abnormality. No evidence of acute ischemic stroke. Extensive patchy areas of T2 hyperintensities seen within the periventricular and subcortical white matter are nonspecific but favor advanced microvascular ischemic changes. Head and neck CTA; unremarkable CT angiography of the brain. There is no significant stenosis, occlusion, or dissection identified within the carotid or vertebral arteries. ASSESSMENT AND PLAN: An 89-year-old woman with multiple comorbidities including multiple stroke risk factors, on aspirin 81 mg daily, admitted with left-sided weakness in the setting of a headache. Although per discussion this afternoon patient notes it was more pain in her leg and shoulder. No weakness noted on examine today.The patient was previously seen and evaluated in 2018 for similar symptoms with concern for possible migraine equivalents. I am happy to report that upon review of her recent MRI brain, there is no evidence of acute ischemic stroke. Unclear etiology of symptoms, although recurrent transient ischemic attack seems unlikely. Would recommend to continue current dose of aspirin 81 mg daily. Otherwise, physical therapy and occupational therapy for rehabilitation needs. Will need neurology followup in 8 weeks. Please contact me with any additional questions or concerns. GABINOD
--- NOTE | 2019-11-22 19:58 | Electrocardiogram Report ---
Test Reason : Blood Pressure : / mmHG Vent. Rate : 062 BPM Atrial Rate : 062 BPM P-R Int : 160 ms QRS Dur : 124 ms QT Int : 468 ms P-R-T Axes : 032 -17 101 degrees QTc Int : 475 ms Normal sinus rhythm Left bundle branch block Abnormal ECG When compared with ECG of 08-JUL-2019 06:25, No significant change Confirmed by Pee Clement ([id number]) on 11/22/2019 7:58:07 PM Referred By: REFERRED SELF Confirmed By:Pee Clement
[2019-11-22] MEDS ORDERED: ROPINIROLE HCL 0.25 MG TABLET PO SCH (21:00)
[2019-11-22] MEDS ORDERED: TRAZODONE HCL 100 MG TAB PO SCH (21:00)
[2019-11-22] MEDS ORDERED: ATORVASTATIN 20 MG TAB PO SCH (21:00)
--- NOTE | 2019-11-23 00:02 | Hospitalist Progress Note ---
Date of Service November 22, 2019 Assessment & Plan (1) Acute left-sided weakness: Presented with headache and left-sided weakness. Stroke alert and fibrinolytic therapy not considered due to duration of symptoms. No acute stroke per CT or MRI. Possible TIA. Seen by Neurology. [place] that migraine equivalent more likely. Continued therapy with aspirin recommended. Ongoing risk factor modification for vascular disease. History of PAF. Had GI bleed on apixaban and it was discontinued. GI and Cardiology consulted. [place] that risks of resuming anticoagulation > benefits. (2) Paroxysmal atrial fibrillation: History of PAF. Had GI bleed on apixaban and it was discontinued. EGD and colonoscopy performed. Found to have bleeding polyp that was treated endoscopically. GI and Cardiology consulted. [place] that risks of resuming anticoagulation > benefits. (3) Anemia due to GI blood loss: History of GI bleed while receiving apixaban for PAF. Apixaban discontinued. Hgb stable at 11.3. (4) Asthma: Pulmonary status stable. 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 Managed with metformin at home. Hgb A1c 5.8 in clinic on 10/31/19. Hold metformin during hospital stay. Insulin coverage as necessary. FBS today = 134. Tight glycemic control generally not indicated in elderly patients because risks outweigh benefits. Consider possibility that neuro symptoms secondary to hypoglycemia. Consider discontinuation of metformin. (6) Dyslipidemia: LDL 68 10/31/19. Continue atorvastatin 20 mg daily. High-intensity dosing not necessary given (1) absence of acute stroke on neuroimaging and (2) low LDL level on current dosing. (7) Hypothyroidism: TSH in clinic 10/31/19 was 7.22. Levothyroxine dose adjusted. TSH now 4.720. Continue current dose of levothyroxine and follow in clinic. (8) DVT prophylaxis: SCD's. Ambulate. (9) Discharge planning issues: Anticipated discharge to home. Internal Medicine follow-up with Dr. Quintero. Cardiology follow-up with Dr. Delgado. Admission and Anticipated Discharge Date Admission Date: November 22, 2019 Subjective Recheck for stroke-like symptoms and other problems. Patient seen in their room around 1620. Admitted last night with headache and left-sided weakness. Better today. Headache and left-sided weakness resolved. No other neuro symptoms. Telemetry data reviewed: NSR 60's. Review of Systems: Constitutional- no fever. Cardiac- no chest pain. Pulmonary- no cough or SOB. GI- no nausea, vomiting, diarrhea, melena, hematochezia. - no urinary symptoms. Otherwise, as noted above. Physical Exam Constitutional: no acute distress Respiratory: no respiratory distress Auscultation: lungs clear to auscultation bilaterally Cardiovascular: Rate/Rhythm: regular rate and regular rhythm Heart Sounds: + murmur (I/ sys murmur LSB) Vessels: no JVD Extremities: no calf tenderness and no edema Gastrointestinal (Abdomen): normal bowel sounds, soft, nontender, no hepatosplenomegaly Musculoskeletal: Extremities: no cyanosis Skin: no rashes, warm and dry Neurologic: PERRL, EOMI no facial palsy no dysarthria motor upper and lower extremities 07/09 Psychiatric: Orientation: alert Results & Data Results & Data ([facility]) Vital Signs (Past 12 Hours) Vital Signs Temp Pulse Pulse Resp BP Pulse Ox 11/22/19 23:27 154/73 H 11/22/19 23:10 36.7 C 69 18 93 11/22/19 19:32 36.6 C 67 17 178/88 H 94 11/22/19 18:07 58 L 11/22/19 15:01 36.7 C 62 18 159/68 H 95 Laboratory Results Laboratory Results - last 24 hr 11/22/19 11/22/19 11/22/19 00:13 00:13 00:13 WBC 8.81 RBC 3.85 L Hgb 11.3 L Hct 36.2 L MCV 94.0 MCH 29.4 MCHC 31.2 L RDW Std Deviation 51.9 H RDW Coeff of Caroline 15.3 H Plt Count 329 MPV 9.5 Immature Gran % (Auto) 0.2 Neut % (Auto) 60.5 Lymph % (Auto) 32.9 [place] % (Auto) 3.6 Eos % (Auto) 2.6 Baso % (Auto) 0.2 Neut # (Auto) 5.32 Lymph # (Auto) 2.90 [place] # (Auto) 0.32 Eos # (Auto) 0.23 Baso # (Auto) 0.02 Immature Gran # (Auto) 0.02 PT 10.3 INR 1.0 Sodium 136 Potassium Chloride 100 Carbon Dioxide 30 Anion Gap 6.0 BUN 13 Creatinine 0.88 Est Cr Clr Drug Dosing Not Reportable Est GFR ( Amer) 68.5 Est GFR (Non-Af Amer) 59.1 BUN/Creatinine Ratio 15.0 Glucose 99 POC Glucose Calcium 9.3 Magnesium Total Bilirubin 0.3 Direct Bilirubin AST ALT 14 Alkaline Phosphatase 87 Troponin I < 0.015 Total Protein 7.7 Albumin 3.5 TSH 4.720 H Urine Color Urine Appearance Urine pH Ur Specific [place] Urine Protein Urine Glucose (UA) Urine Ketones Urine Blood Urine Nitrite Urine Bilirubin Urine Urobilinogen Ur Leukocyte Esterase Urine WBC (Auto) Urine RBC (Auto) U Hyaline Cast (Auto) U Epithel Cells (Auto) Urine Bacteria (Auto) 11/22/19 11/22/19 11/22/19 01:09 01:45 06:54 WBC RBC Hgb Hct MCV MCH MCHC RDW Std Deviation RDW Coeff of Caroline Plt Count MPV Immature Gran % (Auto) Neut % (Auto) Lymph % (Auto) [place] % (Auto) Eos % (Auto) Baso % (Auto) Neut # (Auto) Lymph # (Auto) [place] # (Auto) Eos # (Auto) Baso # (Auto) Immature Gran # (Auto) PT INR Sodium Potassium 3.9 Chloride Carbon Dioxide Anion Gap BUN Creatinine Est Cr Clr Drug Dosing Est GFR ( Amer) Est GFR (Non-Af Amer) BUN/Creatinine Ratio Glucose POC Glucose 134 H Calcium Magnesium 1.7 L Total Bilirubin Direct Bilirubin < 0.1 AST 11 L ALT Alkaline Phosphatase Troponin I Total Protein Albumin TSH Urine Color Yellow Urine Appearance Clear Urine pH 5.0 Ur Specific [place] 1.008 Urine Protein Negative Urine Glucose (UA) Negative Urine Ketones Negative Urine Blood Negative Urine Nitrite Negative Urine Bilirubin Negative Urine Urobilinogen Negative Ur Leukocyte Esterase 2+ H Urine WBC (Auto) 10-30 H Urine RBC (Auto) 0-4 U Hyaline Cast (Auto) 1-5 U Epithel Cells (Auto) >30 H Urine Bacteria (Auto) Negative 11/22/19 11/22/19 11/22/19 11:28 16:08 20:31 WBC RBC Hgb Hct MCV MCH MCHC RDW Std Deviation RDW Coeff of Caroline Plt Count MPV Immature Gran % (Auto) Neut % (Auto) Lymph % (Auto) [place] % (Auto) Eos % (Auto) Baso % (Auto) Neut # (Auto) Lymph # (Auto) [place] # (Auto) Eos # (Auto) Baso # (Auto) Immature Gran # (Auto) PT INR Sodium Potassium Chloride Carbon Dioxide Anion Gap BUN Creatinine Est Cr Clr Drug Dosing Est GFR ( Amer) Est GFR (Non-Af Amer) BUN/Creatinine Ratio Glucose POC Glucose 130 H 120 H 132 H Calcium Magnesium Total Bilirubin Direct Bilirubin AST ALT Alkaline Phosphatase Troponin I Total Protein Albumin TSH Urine Color Urine Appearance Urine pH Ur Specific [place] Urine Protein Urine Glucose (UA) Urine Ketones Urine Blood Urine Nitrite Urine Bilirubin Urine Urobilinogen Ur Leukocyte Esterase Urine WBC (Auto) Urine RBC (Auto) U Hyaline Cast (Auto) U Epithel Cells (Auto) Urine Bacteria (Auto)
[2019-11-23] MEDS: LEVOTHYROXINE SODIUM 50 MCG TABLET PO SCH (05:38)
[2019-11-23 06:37] LABS: Basophils # (auto) 0.02 K/uL (0-0.2); Basophils % (auto) 0.3 %; Eosinophils # (auto) 0.18 K/uL (0-0.5); Eosinophils % (auto) 2.5 %; Hematocrit (blood only) 33.2 % (37-47); Immature Granulocytes # (auto) 0.02 K/uL (0.00-0.02); Immature Granulocytes % (auto) 0.3 %; Lymphocytes # (auto) 1.99 K/uL (1.2-3.4); Lymphocytes % (auto) 27.1 %; Mean Corpuscular Hemoglobin 28.8 pg (25-34); Mean Corpuscular Hgb Conc 30.1 g/dL (32-36); Mean Corpuscular Volume 95.7 fL (80-100); Mean Platelet Volume 9.4 fL (7.4-10.4); Monocytes % (auto) 5.5 %; Neutrophils # (auto) 4.72 K/uL (1.4-6.5); Neutrophils % (auto) 64.3 %; Platelet Count 286 K/uL (130-400); RDW Coefficient of Variation 15.8 % (11.5-14.5); RDW Standard Deviation 55.5 fL (36.4-46.3); Red Blood Count 3.47 M/uL (4.2-5.4); White Blood Count 7.33 K/uL (4.8-10.8)
[2019-11-23 06:53] LABS: Estimated Average Glucose 120 mg/dl; Hemoglobin A1C 5.8 % (4.5-5.6)
[2019-11-23 07:09] LABS: BUN Creatinine Ratio 11.9 (10-20); Calcium 8.5 mg/dl (8.5-10.1); Est GFR (African American) 69.4; Est GFR (Non-African American) 59.9; Potassium 3.6 mmol/L (3.5-5.1)
[2019-11-23 07:19] LABS: Thyroid Stimulating Hormone 3.98 uIu/ml (0.300-4.500)
[2019-11-23] MEDS: CYANOCOBALAMIN 500 MCG TABLET (VITAMIN B-12) PO SCH (07:33)
[2019-11-23] MEDS: THEOPHYLLINE 400 MG EXTENDED REL TAB PO SCH (07:33)
[2019-11-23] MEDS: ASPIRIN 81 MG ECTAB PO SCH (07:34)
[2019-11-23] MEDS: PANTOprazole 40 MG TAB PO SCH (07:34)
[2019-11-23] MEDS: FERROUS FUMARATE/ASCORBIC ACID 65 MG CAPCR PO SCH (07:35)
[2019-11-23] MEDS: METOPROLOL TARTRATE 25 MG TAB PO SCH (07:35)
[2019-11-23] MEDS: CHOLECALCIFEROL 1,000 UNITS 25 MCG TAB PO SCH (07:36)
[2019-11-23] MEDS: SODIUM CHLORIDE 0.9% 1000ML 1,000 ML IV SCH (07:39)
[2019-11-23] MEDS: INSULIN ASPART 100 UNITS/ML 3 ML PEN SC SCH ×2 (09:22→12:23)
--- NOTE | 2019-11-23 11:11 | Cardiology Progress Note ---
Date of Service November 23, 2019 Assessment & Plan (1) Acute left-sided weakness: (2) Paroxysmal atrial fibrillation: (3) Anemia due to GI blood loss: Continue low-dose aspirin and metoprolol. No medication changes from a cardiovascular perspective. Cardiology will sign off. Please call with questions. Admission and Anticipated Discharge Date Admission Date: November 22, 2019 Subjective Patient seen and examined the bedside. No complaints from a cardiovascular perspective. Previously reported left arm discomfort has resolved. Denies chest pain or shortness of breath. No evidence of atrial fibrillation on telemetry. Review of Systems Review of Systems: Unobtainable due to cognitive status Physical Exam Constitutional: well developed and well nourished; no acute distress Respiratory: normal respiratory effort, lungs clear to auscultation Auscultation: no crackles, no rales, no rhonchi and no wheezes Cardiovascular: Rate/Rhythm: regular rate and regular rhythm Heart Sounds: normal S1, normal S2 and + murmur (1/6 systolic ejection murmur heard best at the right second intercostal space.) Vessels: radial pulses present; no JVD and no carotid bruit Extremities: no edema Gastrointestinal (Abdomen): Inspection/Auscultation: abdomen normal to inspection and normal bowel sounds; abdomen not distended Percussion/Palpation: abdomen soft; abdomen nontender, no guarding and abdomen not rigid Musculoskeletal: no cyanosis or clubbing, extremities motor strength 5/5 Skin: no rashes, warm and dry Neurologic: moves all extremities; no focal motor deficits Speech / Cognit ion: normal speech Motor/Sensory: no tremor Psychiatric: Orientation: alert Affect: euthymic affect Insight: + poor insight Results & Data ([facility]) Vital Signs (Past 12 Hours) Vital Signs Temp Pulse Resp BP BP Pulse Ox 11/23/19 10:45 36.4 C L 61 22 138/72 93 11/23/19 08:14 36.8 C 84 19 168/83 H 92 11/23/19 03:50 36.8 C 71 18 168/63 H 92 11/22/19 23:27 154/73 H 11/22/19 23:10 36.7 C 69 18 93
--- NOTE | 2019-11-23 15:48 | Hospitalist Progress Note ---
Date of Service November 23, 2019 Assessment & Plan (1) Acute left-sided weakness: Presented with headache and left-sided weakness. Stroke alert and fibrinolytic therapy not considered due to duration of symptoms. No acute stroke per CT or MRI. Possible TIA. Seen by Neurology. [place] that migraine equivalent more likely. Continued therapy with aspirin recommended. Ongoing risk factor modification for vascular disease. History of PAF. Had GI bleed on apixaban and it was discontinued. GI and Cardiology consulted. [place] that risks of resuming anticoagulation > benefits. (2) Paroxysmal atrial fibrillation: History of PAF. Had GI bleed on apixaban and it was discontinued. EGD and colonoscopy performed. Found to have bleeding polyp that was treated endoscopically. GI and Cardiology consulted. [place] that risks of resuming anticoagulation > benefits. (3) Anemia due to GI blood loss: History of GI bleed while receiving apixaban for PAF. Apixaban discontinued. Hgb stable at 10-11. (4) Asthma: Pulmonary status stable. 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 Managed with metformin at home. Hgb A1c 5.8 in clinic on 10/31/19. Hold metformin during hospital stay. Insulin coverage as necessary. FBS today = 115. Tight glycemic control generally not indicated in elderly patients because risks outweigh benefits. Consider possibility that neuro symptoms secondary to hypoglycemia. Advised to stop metformin, at least for the present time. (6) Dyslipidemia: LDL 68 10/31/19. Continue atorvastatin 20 mg daily. High-intensity dosing not necessary given (1) absence of acute stroke on neuroimaging and (2) low LDL level on current dosing. (7) Hypothyroidism: TSH in clinic 10/31/19 was 7.22. Levothyroxine dose adjusted. TSH now 4.720. Continue current dose of levothyroxine and follow in clinic. (8) DVT prophylaxis: SCD's. Ambulate. (9) Discharge planning issues: Discharge to home. Internal Medicine follow-up with Dr. Quintero. Cardiology follow-up with Dr. Delgado. Admission and Anticipated Discharge Date Admission Date: November 22, 2019 Subjective Recheck for stroke-like symptoms and other problems. Patient seen in their room around 1350. Doing well. Headache and left-sided weakness resolved. No other neuro symptoms. Ambulating with walker. Review of Systems: Constitutional- no fever. Cardiac- no chest pain. Pulmonary- no cough or SOB. GI- no nausea, vomiting, diarrhea, melena, hematochezia. - no urinary symptoms. Otherwise, as noted above. Physical Exam Constitutional: no acute distress Respiratory: no respiratory distress Auscultation: lungs clear to auscultation bilaterally Cardiovascular: Rate/Rhythm: regular rate and regular rhythm Heart Sounds: + murmur (I/ sys murmur LSB) Vessels: no JVD Extremities: no calf tenderness and no edema Gastrointestinal (Abdomen): normal bowel sounds, soft, nontender, no hepatosplenomegaly Musculoskeletal: Extremities: no cyanosis Skin: no rashes, warm and dry Neurologic: alert, oriented motor strength upper and lower extremities essentially 5/5 bilat Psychiatric: Orientation: alert Results & Data Results & Data ([facility]) Vital Signs (Past 12 Hours) Vital Signs Temp Pulse Resp BP BP Pulse Ox 11/23/19 15:42 36.7 C 75 18 162/80 H 93 11/23/19 10:45 36.4 C L 61 22 138/72 93 11/23/19 08:14 36.8 C 84 19 168/83 H 92 11/23/19 03:50 36.8 C 71 18 168/63 H 92 Laboratory Results 11/23/19 05:54 11/23/19 05:54
--- NOTE | 2019-11-23 16:40 | Communication Note ---
Date of Service: November 23, 2019 Code 44 documentation. She is an 89-year-old female with significant complicated past medical history as mentioned in H&P was admitted with strokelike symptoms. She was evaluated by the neurologist and the air bag builder with appropriate investigations, imaging studies and laboratory testing. Her presenting symptoms almost resolved and were likely due to migraine equivalent. She has been feeling fine as of today and can be discharged from the hospital. By [facility] guidelines, a determination that the admission or continued stay is not medically necessary has been made by a member of the UR committee and a physician for this hospital stay, therefore a Code 44 will be completed and the Inpatient admission will be changed to outpatient. Dr. Dexter Nunn ( member UR Committee)
--- NOTE | 2019-11-25 20:49 | Discharge Summary ---
Date of Service Date of Admission: 11/22/19 Date of Discharge: 11/23/19 Admission HPI Per Admitting Provider This 89-year-old female with past medical history significant for type 2 diabetes, hypothyroidism, hyperlipidemia, chronic kidney disease stage III, nonallergic rhinitis, asthma in remission, allergic rhinitis, GERD, hypertension, paroxysmal SVT, PAF, iron deficiency anemia, restless leg syndrome, generalized osteoarthritis, history of TIA, history of GI bleeds, history of colon polyps and gastric polyps, history of insomnia, hypothyroidism. The patient lives with his son and [id number] who presents with left sided weakness. The patient seem to woke up with a headache yesterday morning on 11/21/2019 and also some questionable left hand pain and weakness. She has had headache all day and in the nighttime at 10pm when she was going to bed, her [id number] noticed that she is dragging her left leg. Her son who is a catering truck operator, is off the town, [id number] called her another son and she was brought in here. Stroke alert was not called as the patient seem to do not know exact time of symptoms and initial CAT scan is okay. Currently resting comfortably and hemodynamically stable. She is very hard of hearing and her son is in the room who helped with H and P. Currently there is no headache, no blurred vision, no earache. She always had runny nose from her allergies. No cough, no sore throat, no difficulty swallowing. No fevers, no chest pain, no shortness of breath, no nausea, no abdominal pain. She denies any blood in the stools or black stools. Normal bladder movements. No rash seen. She has history of paroxysmal atrial fibrillation, recently supervisor metal fabricating stopped her Eliquis due to concern for GI bleed because her outpatient recent labs showed hemoglobin of 9.2. She is supposed to get stool for Hemoccult studies done, has not submitted the sample yet. Principal Diagnosis left-sided weakness - acute stroke ruled out - suspected migraine equivalent Discharge Data Allergies Allergy/AdvReac Type Severity Reaction Status Date / Time No Known Allergies Allergy Verified 11/22/19 00:52 Consultations 11/22/19 01:50 ED Decision to Admit Stat 11/22/19 06:14 Consult Case Management - Discharge Planning Routine Consult Case Management - Discharge Planning Routine 11/22/19 08:00 Consult Cardiology Routine Consult Neurology Routine 11/22/19 08:20 Consult Gastroenterology Routine Ordered Studies 11/22/19 00:01 CT head/brain wo con Urgent 11/22/19 02:37 CT angio head w con Urgent CT angio neck with con Urgent MR brain wo/w con Urgent Hospital Course (1) Acute left-sided weakness: Presented with headache and left-sided weakness. Stroke alert and fibrinolytic therapy not considered due to duration of symptoms. No acute stroke per CT or MRI. Possible TIA. Seen by Neurology. [place] that migraine equivalent more likely. Continued therapy with aspirin recommended. Ongoing risk factor modification for vascular disease. History of PAF. Had GI bleed on apixaban and it was discontinued. GI and Cardiology consulted. [place] that risks of resuming anticoagulation > benefits. (2) Paroxysmal atrial fibrillation: History of PAF. Had GI bleed on apixaban and it was discontinued. EGD and colonoscopy performed. Found to have bleeding polyp that was treated endoscopically. GI and Cardiology consulted. [place] that risks of resuming anticoagulation > benefits. (3) Anemia due to GI blood loss: History of GI bleed while receiving apixaban for PAF. Apixaban discontinued. Hgb stable at 10-11. (4) Asthma: Pulmonary status stable. 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 Managed with metformin at home. Hgb A1c 5.8 in clinic on 10/31/19. Held metformin during hospital stay. Insulin coverage ordered as necessary. FBS day of discharge = 115. Tight glycemic control generally not indicated in elderly patients because risks outweigh benefits. Consider possibility that neuro symptoms day of admission secondary to hypoglycemia. Advised to stop metformin and follow blood sugars, allowing for moderate degree of hyperglycemia. (6) Dyslipidemia: LDL 68 10/31/19. Continue atorvastatin 20 mg daily. High-intensity dosing not necessary given (1) absence of acute stroke on neuroimaging and (2) low LDL level on current dosing. (7) Hypothyroidism: TSH in clinic 10/31/19 was 7.22. Levothyroxine dose adjusted. TSH now 4.720. Continue current dose of levothyroxine and follow in clinic. (8) DVT prophylaxis: SCD's. Ambulate. (9) Discharge planning issues: Discharged to home. Internal Medicine follow-up with Dr. Quintero. Cardiology follow-up with Dr. Delgado. Total Time Total Time Spent Total Time Spent (In Minutes): 30 Discharge Plan Discharge Items Patient Disposition: Home - Self-Care Reason For Visit: LEFT SIDED WEAKNESS Discharge Diagnosis: left-sided weakness, no sign of stroke Activity: Resume your previous activity Activity Comment: use walker Non-emergency contact: Primary Care Provider, Hospitalist and Ground Service Equipment Mechanic Call non-emergency contact if: you have any medication questions and your pain is not controlled Follow-up/Referrals: César Delgado DO [Ground Service Equipment Mechanic] - (11/26/2019 9:00 AM César Delgado DO Cardiology, [facility] ) Dulce Maria Quintero DO [Primary Care Provider] - (01/18/2020 8:50 AM Dulce Maria Quintero DO Internal Medicine [facility] ) Radha Neal [Nurse Practitioner] - (12/21/2019 8:30 AM GREG Martinez Gastroenterology [facility]) Diet: Heart Healthy Addtl Attending Provider Instructions: MEDICATION CHANGES: Resume aspirin (Ecotrin) 81 mg daily. Stop metformin (Glucophage). SUMMARY OF TEST RESULTS: No sign of stroke on CT scan or MRI scan. Hgb A1c 5.8. This indicates that your blood sugars have been too low. OTHER INSTRUCTIONS: Seek medical attention if you have: * temperature above 101 * chest pain or trouble breathing * abdominal pain, nausea, vomiting * diarrhea, dark stools or bloody stools * any unanswered questions or concerns Call 911 if symptoms are severe. Please take good care of yourself. Call if you have any questions or problems. You can reach a [facility] hospitalist on duty at [facility] 24 hours a day by calling [phone]. My cell # is [phone]. Pending Studies at Discharge: No Stand-Alone Forms: My [facility], Smoking Cessation Medications and DC Order Prescriptions: New (DME) Wheeled Walker Misc See Rx Instructions .ROUTE .MEDSUPPLY Qty: 1 RF: 0 aspirin [Ecotrin Low Strength] 81 mg tablet,delayed release (DR/EC) 81 mg PO DAILY Qty: 30 RF: 12 Continued atorvastatin 20 mg tablet 20 mg PO HS RF: 0 theophylline 400 mg tablet extended release 24 hr 200 mg PO DAILY RF: 0 levothyroxine 50 mcg tablet 50 mcg PO DAILY RF: 0 trazodone 100 mg Tablet 100 mg PO QPM RF: 0 ropinirole [Requip] 0.25 mg Tablet 0.5 mg PO QPM RF: 0 omeprazole 40 mg capsule,delayed release(DR/EC) 40 mg PO DAILY RF: 0 metoprolol tartrate 25 mg tablet 12.5 mg PO DAILY RF: 0 cyanocobalamin (vitamin B-12) [Vitamin B-12] 1,000 mcg Tablet 1,000 mcg PO DAILY RF: 0 cholecalciferol (vitamin D3) [Vitamin D3] 25 mcg (1,000 unit) Capsule 25 mcg PO DAILY RF: 0 Iron Suppliment 125 mg PO DAILY RF: 0 Discontinued metformin 500 mg tablet 500 mg PO DAILY RF: 0 Discharge Orders: Discharge Order (Routine); Ordered 11/23/19 Ordered By: Ciaran Guillaume Admission Data Admit Date/Time: 11/22/19 02:37 Attending Provider: Ciaran Guillaume Admit Provider: Baldomero Chin Primary Care Provider: Dulce Maria Quintero Other Providers: Baldomero Chin ; Rafa Salguero ; Blayne Shah ; Jabari Seaman ; César Delgado ; Nilay Conklin ; Adan Mercedes ; Charmaine Nava ; Magi Nicolas ; Michael Mcmanus ; Magi Wynn ; Ciaran Wright ; Magi Pal ; Mike Dixon ; Key Kumar Other Interventions: Discharge Summary Assessment (RN) Last Done: 11/23/19 16:22
== END 2019-11-23 17:37 | disposition home or self-care (01) ==
LOC: ED 23:42 → INTOOBSV 11-22 02:37 → 2E 11-22 02:37

== ENCOUNTER 2019-12-02 09:22 | Inpatient (IN) ==
[2019-12-02] MEDS ORDERED: OPTIRAY 320 125ml IV ONE (09:31)
[2019-12-02] MEDS ORDERED: MAGNESIUM SULFATE / D5W 1 GM/100 ML BAG IV STA (09:39)
--- NOTE | 2019-12-02 09:42 | CT Scan Report ---
CT OF THE HEAD WITHOUT CONTRAST CLINICAL HISTORY: Stroke evaluation COMPARISON STUDY: Head CT, CTA of the head an MRI of the brain November 22, 2019. TECHNIQUE: Helical axial images of the head were obtained without IV contrast. Automated exposure con trol was utilized for the study. A dose lowering technique was utilized adhering to the principles o f ALARA. FINDINGS: No acute intracranial hemorrhage, midline shift or mass effect is present. Extensive white matter hypodensities unchanged and suggest small vessel disease. The ventricular system is unremarkab le. The basilar cisterns are patent. No extra-axial collections are present. There are no findings to suggest acute dural sinus thrombosis or acute territorial infarct. No significant calvarial abnormal ities are present. Visualized portions of the sinuses and mastoid air cells are clear. IMPRESSION: No acute intracranial findings. No change in appearance of the brain. ACT 112: Negative or not required by law. Electronically signed by: Balbir Glasgow M.D. 12/02/2019 9:40 AM
[2019-12-02] MEDS ORDERED: SODIUM CHLORIDE 0.9% 500 ML IV ONE (09:45)
[2019-12-02] MEDS ORDERED: MAGNESIUM SULFATE / D5W 1 GM/100 ML BAG IV ONE (09:45)
--- NOTE | 2019-12-02 09:45 | CT Scan Report ---
CTA ANGIOGRAPHY OF THE HEAD CLINICAL HISTORY: Stroke evaluation COMPARISON STUDY: CTA of the head and MRI of the brain November 22, 2019. TECHNIQUE: Helical axial images of the head were obtained following uneventful intravenous administr ation of 120 cc of Optiray 320. Sagittal and coronal reconstructions were viewed as well as maximal i ntensity projections on an independent 3-D workstation. Automated exposure control was utilized for the study. A dose lowering technique was utilized adhering to the principles of ALARA. FINDINGS: No acute intracranial hemorrhage, midline shift or mass effect is present. Ventricular syst em is normal. Basilar cisterns are patent. There are no extra axial collections. White matter hypoden sity suggests small vessel disease. There is moderate plaque within the bilateral cavernous carotids without stenosis. No central vessel occlusion is noted. There is no intraluminal thrombus. pers istence of the right posterior cerebral artery is noted. IMPRESSION: 1. No central vessel occlusion. 2. Moderate plaque within the bilateral cavernous carotids without stenosis. ACT 112: Negative or not required by law. Electronically signed by: Balbir Glasgow M.D. 12/02/2019 9:44 AM
[2019-12-02] MEDS ORDERED: ASPIRIN CHEW 324 MG PO STA (09:46)
--- NOTE | 2019-12-02 09:48 | CT Scan Report ---
CT ANGIOGRAPHY OF THE NECK WITH CONTRAST CLINICAL HISTORY: Stroke evaluation COMPARISON STUDY: CTA of the neck November 22, 2019. Technique: CT angiography of the carotid and vertebral arteries was obtained using P[employer]ite 320 IV and 3D reconstruction on an independent workstation. NASCET criteria was utilized. Automated exposure c ontrol was utilized for the study. A dose lowering technique was utilized adhering to the principles of ALARA. CT DOSE: 1060.15 mGy.cm Findings: Lung apices are clear. There is no cervical lymphadenopathy. There is no cervical spine fra cture. There is minimal plaque within the bilateral carotid bifurcations without stenosis. There is n o intraluminal thrombus. No aneurysm within the neck is noted. No dissection is noted within the justice r vessels of the neck. The bilateral vertebral arteries are patent. IMPRESSION: No abnormality in carotid and vertebral vessels on contrast enhanced CT angiogram. ACT 112: Negative or not required by law. Electronically signed by: Balbir Glasgow M.D. 12/02/2019 9:47 AM
[2019-12-02 10:14] LABS: Basophils # (auto) 0.01 K/uL (0-0.2); Basophils % (auto) 0.1 %; Eosinophils # (auto) 0.04 K/uL (0-0.5); Eosinophils % (auto) 0.5 %; Hematocrit (blood only) 35.5 % (37-47); Immature Granulocytes # (auto) 0.03 K/uL (0.00-0.02); Immature Granulocytes % (auto) 0.4 %; Lymphocytes # (auto) 0.85 K/uL (1.2-3.4); Lymphocytes % (auto) 11.1 %; Mean Corpuscular Hemoglobin 29.3 pg (25-34); Mean Corpuscular Volume 94.7 fL (80-100); Mean Platelet Volume 9.2 fL (7.4-10.4); Monocytes # (auto) 0.26 K/uL (0.11-0.59); Monocytes % (auto) 3.4 %; Neutrophils % (auto) 84.5 %; Platelet Count 267 K/uL (130-400); RDW Coefficient of Variation 15.8 % (11.5-14.5); RDW Standard Deviation 54.1 fL (36.4-46.3); Red Blood Count 3.75 M/uL (4.2-5.4); White Blood Count 7.69 K/uL (4.8-10.8)
--- NOTE | 2019-12-02 10:24 | XRay Report ---
XR chest 1V portable CLINICAL HISTORY: Left-sided weakness. COMPARISON STUDY: Chest CT July 07, 2019. Chest radiograph November 22, 2019. FINDINGS: Healing left-sided rib fracture is noted. Lung volumes are diminished. There is no consolid ation. No pneumothorax or pleural effusion is noted. Elevation/eventration of the right hemidiaphragm is noted. A hiatal hernia is better depicted on prior CT. There is mild cardiomegaly. Patient is rot ated. IMPRESSION: No acute cardiopulmonary findings. Rotated study. No significant change in appearance of the chest. ACT 112: Negative or not required by law. Electronically signed by: Balbir Glasgow M.D. 12/02/2019 10:23 AM
[2019-12-02 10:26] LABS: INR 1.1 (0.9-1.1); Partial Thromboplastin Ratio 0.9; Partial Thromboplastin Time 25.9 Seconds (21.0-31.0); Prothrombin Time 11.3 Seconds (9.0-12.0)
--- NOTE | 2019-12-02 10:35 | Emergency Department Note ---
History of Present Illness General Stated complaint: stroke alert Source: patient, family, EMS, RN notes reviewed and old records reviewed Mode of arrival: EMS Limitations: altered mental status History of Present Illness Provider complaint: left sided weakness, facial droop Onset (ago): hour(s) 1 Location: face, upper extremity, lower extremity and left Current Pain Intensity: 0 Associated symptoms: + confusion; no chest pain, no cough, no fever/chills, no headaches, no nausea/vomiting and no shortness of breath Treatments prior to arrival: none This is an 89-year-old female who presents the emergency department with acute altered mental status change along with left-sided weakness and facial droop. EMS was earlier called out to the residents at 3 AM for a fall. The patient did not come to the hospital at that time. She was earlier admitted approximately 1 week ago for similar symptoms. She was to have a follow-up appointment with neurology on Tuesday however this morning the patient was last seen normal at 6 AM. At 8 AM it was discovered that the patient was wandering around the house outside. It was noted at that point that she had a facial droop along with left-sided weakness. She also seemed more confused than usual. EMS was dispatched and brought the patient to the emergency department. Upon arrival to the emergency department the patient is pleasant has no complaints although does appear confused. Home Medications Home Medications Medication Instructions Recorded Confirmed Type ropinirole [Requip] 0.5 mg PO QPM 02/19/18 12/02/19 History trazodone 100 mg PO QPM 02/19/18 12/02/19 History atorvastatin 20 mg PO HS 07/06/19 12/02/19 History levothyroxine 50 mcg PO DAILY 07/06/19 12/02/19 History theophylline 200 mg PO DAILY 07/06/19 12/02/19 History cholecalciferol (vitamin D3) 25 mcg PO DAILY 11/22/19 12/02/19 History [Vitamin D3] cyanocobalamin (vitamin B-12) 1,000 mcg PO DAILY 11/22/19 12/02/19 History [Vitamin B-12] metoprolol tartrate 12.5 mg PO DAILY 11/22/19 12/02/19 History omeprazole 40 mg PO DAILY 11/22/19 12/02/19 History Wheeled Walker #1 ea 11/23/19 Rx aspirin [Ecotrin Low Strength] 81 mg PO DAILY #30 tab 11/23/19 12/02/19 Rx iron,carbonyl-vitamin C [Vitron-C] 1 tab PO DAILY 12/02/19 12/02/19 History loperamide 2 mg PO Q8H PRN 12/02/19 12/02/19 History Allergies Allergy/AdvReac Type Severity Reaction Status Date / Time No Known Allergies Allergy Verified 12/02/19 10:50 Past Med/Surg History Medical History Asthma Diabetes mellitus type 2 with complications Diverticulitis Dyslipidemia GI bleed Hemorrhoid Hypothyroidism PSVT (paroxysmal supraventricular tachycardia) Stroke Surgical History No pertinent past surgical history Family History (Updated 12/02/19 @ 13:32 by Alexis Armendariz PA-C) Other Family history non-contributory Social History Smoking Status: Never smoker Hx Alcohol Use: No Hx Substance Use: No Preferred Language: Romanian Communication Ability: Effective Application Coordinator Required: No Beliefs That Will Affect Care: None marital status: / Current Living Situation: Family Current Living Situation Comment: son and [id number] Feels Safe at Home: Yes Safety Concerns: Feels Safe At This Time Assistive Devices: Walker Review of Systems A total of 10 systems reviewed and were otherwise negative Physical Exam Vital Signs Vital Signs - 24 hr 12/02/19 09:19 12/02/19 09:40 12/02/19 09:41 Temperature 36.8 C Temperature Source Oral Pulse Rate 59 L 69 70 Pulse Rate from SpO2 Sensor Respiratory Rate 18 Respiratory Effort / Characteristics Non-Labored Spontaneous Respiratory Depth Normal Blood Pressure 146/69 H 169/65 H Blood Pressure Mean 94 77 Blood Pressure Position Sitting Pulse Oximetry 95 Oxygen Delivery Method Room Air Sepsis Recent Fever Within 48 Hours No Sepsis New/Unexplained Change in Mental Status N/A Sepsis Action Taken by Nursing No Action Required 12/02/19 09:50 12/02/19 10:00 12/02/19 10:10 Temperature Temperature Source Pulse Rate 76 61 60 Pulse Rate from SpO2 Sensor 68 63 61 Respiratory Rate Respiratory Effort / Characteristics Respiratory Depth Blood Pressure Blood Pressure Mean Blood Pressure Position Pulse Oximetry 96 97 96 Oxygen Delivery Method Room Air Room Air Sepsis Recent Fever Within 48 Hours Sepsis New/Unexplained Change in Mental Status Sepsis Action Taken by Nursing 12/02/19 10:20 12/02/19 10:30 12/02/19 10:40 Temperature Temperature Source Pulse Rate 58 L 56 L 61 Pulse Rate from SpO2 Sensor 57 L 55 L 61 Respiratory Rate Respiratory Effort / Characteristics Respiratory Depth Blood Pressure 151/73 H Blood Pressure Mean 102 Blood Pressure Position Pulse Oximetry 95 95 96 Oxygen Delivery Method Sepsis Recent Fever Within 48 Hours Sepsis New/Unexplained Change in Mental Status Sepsis Action Taken by Nursing 12/02/19 10:53 Temperature Temperature Source Pulse Rate 75 Pulse Rate from SpO2 Sensor Respiratory Rate 25 H Respiratory Effort / Characteristics Respiratory Depth Blood Pressure Blood Pressure Mean Blood Pressure Position Pulse Oximetry Oxygen Delivery Method Sepsis Recent Fever Within 48 Hours Sepsis New/Unexplained Change in Mental Status Sepsis Action Taken by Nursing VITAL SIGNS - Vital signs and nursing notes were reviewed. GENERAL - 89-year-old female appearing stated age who is confused, doesnt quite follow commands. SKIN - Without rashes. HEAD - NC/AT. EYES - PERRL with EOMI bilaterally. Sclera anicteric. Palpebral conjunctiva pink and moist with no injection noted. EARS - No deformities of external structures noted on gross examination bilaterally. No pain elicited with palpation of the tragus bilaterally. External auditory canals without discharge or otorrhea. Tympanic membranes pearly pepe without retraction or bulging. No fluid or purulent material visualized behind the TM. Handle of malleus, umbo, cone of light, pars tensa/flaccid all easily visualized. NOSE - Midline and without cyanosis. No epistaxis or purulent drainage noted. Septum midline without deviation or septal hematoma noted. MOUTH/OROPHARYNX - Without perioral cyanosis. Buccal mucosa pink and moist and without leukoplakia. Tongue midline with equal elevation of palate bilaterally. No tonsillar hypertrophy, erythema, or exudates noted. dentition noted. NECK - Neck with FROM. Supple to palpation. lymphadenopathy noted. No nuchal rigidity. LUNGS - Chest wall symmetric without accessory muscle use, intercostals retractions, or central cyanosis. Normal vesicular breath sounds CTA B/L. No wheezes, rales, or rhonchi appreciated. CARDIAC - RRR with S1/S2. No murmur, rubs, or gallops appreciated. ABDOMEN - Abdominal contour without pulsations or visible masses. BS normoactive all four quadrants. No tenderness, palpable masses, hepatosplenomegaly, or ascites noted. EXTREMITIES - No clubbing or peripheral cyanosis. No pretibial edema present. +3/5 radial, posterior tibial, and dorsalis pedis pulses palpated throughout. +4/5 strength noted LUE NEUROLOGIC - Cranial nerves II through XII grossly intact. Sensory intact to light touch throughout. Patellar reflexes +2/4. PSYCH - A&Ox3 and cooperates fully with examiner. Pt is very pleasant and interacts well with examiner. Course Administered Medications Aspirin (Aspirin 81 Mg Ectab) 81 mg PO DAILY [facility] Stop: 01/02/20 08:59 Last Admin: 12/04/19 08:14 Dose: 81 mg Documented by: [id number] Admin: 12/03/19 11:47 Dose: 81 mg Documented by: [id number] Atorvastatin Calcium (Atorvastatin 20 Mg Tab) 20 mg PO HS FANY Stop: 01/01/20 20:59 Last Admin: 12/04/19 20:34 Dose: 20 mg Documented by: [id number] Admin: 12/03/19 20:17 Dose: 20 mg Documented by: [id number] Admin: 12/02/19 20:16 Dose: 20 mg Documented by: [id number] Cyanocobalamin (Cyanocobalamin 500 Mcg Tablet (Vitamin B-12)) 1,000 mcg PO DAILY FANY Stop: 01/02/20 08:59 Last Admin: 12/04/19 08:14 Dose: 1,000 mcg Documented by: [id number] Admin: 12/03/19 11:44 Dose: 1,000 mcg Documented by: [id number] Ceftriaxone Sodium 1,000 mg/ (Dextrose) 50 mls @ 100 mls/hr IV Q24H FANY; Protocol Stop: 12/13/19 00:14 Last Admin: 12/05/19 00:37 Dose: 100 mls/hr Documented by: [id number] Infusion: 12/04/19 01:34 Dose: 0 mls/hr Documented by: [id number] Admin: 12/04/19 00:56 Dose: 100 mls/hr Documented by: [id number] Infusion: 12/03/19 01:47 Dose: 0 mls/hr Documented by: [id number] Admin: 12/03/19 01:03 Dose: 100 mls/hr Documented by: [id number] Insulin Aspart (Insulin Aspart 100 Units/Ml 3 Ml Pen) 0 units SC ACHS FANY Stop: 01/01/20 16:29 Last Admin: 12/04/19 21:12 Dose: Not Given Documented by: [id number] Cosigned by: [id number] Admin: 12/04/19 17:20 Dose: Not Given Documented by: [id number] Admin: 12/04/19 12:09 Dose: 2 units Documented by: [id number] Cosigned by: [id number] Admin: 12/04/19 08:15 Dose: Not Given Documented by: [id number] Admin: 12/03/19 20:24 Dose: Not Given Documented by: [id number] Admin: 12/03/19 17:33 Dose: Not Given Documented by: [id number] Admin: 12/03/19 12:21 Dose: 3 units Documented by: [id number] Cosigned by: [id number] Admin: 12/03/19 10:30 Dose: Not Given Documented by: [id number] Admin: 12/02/19 21:12 Dose: Not Given Documented by: [id number] Cosigned by: [id number] Admin: 12/02/19 17:15 Dose: Not Given Documented by: [id number] Cosigned by: [id number] Levothyroxine Sodium (Levothyroxine Sodium 50 Mcg Tablet) 50 mcg PO DAILYBB FANY Stop: 01/02/20 06:29 Last Admin: 12/04/19 05:56 Dose: 50 mcg Documented by: [id number] Admin: 12/03/19 05:27 Dose: 50 mcg Documented by: [id number] Metoprolol Tartrate (Metoprolol Tartrate 25 Mg Tab) 12.5 mg PO DAILY FANY Stop: 01/02/20 08:59 Last Admin: 12/04/19 08:14 Dose: 12.5 mg Documented by: [id number] Admin: 12/03/19 11:45 Dose: 12.5 mg Documented by: [id number] Pantoprazole Sodium (Pantoprazole 40 Mg Tab) 40 mg PO DAILY FANY Stop: 01/02/20 08:59 Last Admin: 12/04/19 08:14 Dose: 40 mg Documented by: [id number] Admin: 12/03/19 11:44 Dose: 40 mg Documented by: [id number] Ropinirole HCl (Ropinirole Hcl 0.25 Mg Tablet) 0.5 mg PO QPM FANY Stop: 01/01/20 20:59 Last Admin: 12/04/19 20:36 Dose: 0.5 mg Documented by: [id number] Admin: 12/03/19 20:18 Dose: 0.5 mg Documented by: [id number] Admin: 12/02/19 20:16 Dose: 0.5 mg Documented by: [id number] Theophylline (Theophylline 400 Mg Extended Rel Tab) 200 mg PO DAILY FANY Stop: 01/02/20 08:59 Last Admin: 12/04/19 08:14 Dose: 200 mg Documented by: [id number] Admin: 12/03/19 11:46 Dose: 200 mg Documented by: [id number] Trazodone HCl (Trazodone Hcl 100 Mg Tab) 100 mg PO QPM FANY Stop: 01/01/20 20:59 Last Admin: 12/04/19 20:34 Dose: 100 mg Documented by: [id number] Admin: 12/03/19 20:17 Dose: 100 mg Documented by: [id number] Admin: 12/02/19 20:16 Dose: 100 mg Documented by: [id number] Vitamin D (Cholecalciferol 1,000 Units 25 Mcg Tab) 1,000 units PO DAILY FANY Stop: 01/02/20 08:59 Last Admin: 12/04/19 08:14 Dose: 1,000 units Documented by: [id number] Admin: 12/03/19 11:43 Dose: 1,000 units Documented by: [id number] Discontinued Medications Aspirin (Aspirin Chew 324 Mg) 324 mg PO NOW STA Stop: 12/02/19 09:47 Last Admin: 12/02/19 10:23 Dose: 324 mg Documented by: [id number] Magnesium Sulfate/Dextrose (Magnesium Sulfate / D5w) 1 gm in 100 mls @ 100 mls/hr IV NOW STA Stop: 12/02/19 10:38 Last Infusion: 12/02/19 11:27 Dose: 0 mls/hr Documented by: [id number] Admin: 12/02/19 10:23 Dose: 100 mls/hr Documented by: [id number] Magnesium Sulfate/Dextrose (Magnesium Sulfate / D5w) 1 gm in 100 mls @ 50 mls/hr IV ONE ONE Stop: 12/02/19 11:44 Last Infusion: 12/02/19 14:42 Dose: 0 mls/hr Documented by: [id number] Infusion: 12/02/19 11:13 Dose: 0 mls/hr Documented by: [id number] Admin: 12/02/19 11:13 Dose: 50 mls/hr Documented by: [id number] Sodium Chloride (Nss) 500 mls @ 999 mls/hr IV .Q31M ONE Stop: 12/02/19 10:15 Last Infusion: 12/02/19 11:12 Dose: 0 mls/hr Documented by: [id number] Admin: 12/02/19 10:23 Dose: 999 mls/hr Documented by: [id number] Sodium Chloride (Nss 1000ml) 1,000 mls @ 60 mls/hr IV .[id number] ONE Stop: 12/03/19 16:50 Last Infusion: 12/04/19 03:17 Dose: 0 mls/hr Documented by: [id number] Infusion: 12/03/19 11:47 Dose: 60 mls/hr Documented by: [id number] Infusion: 12/03/19 02:20 Dose: 0 mls/hr Documented by: [id number] Admin: 12/03/19 00:54 Dose: 60 mls/hr Documented by: [id number] Ioversol (Optiray 320 125ml) 120 ml IV ONCE ONE Stop: 12/02/19 09:32 Last Admin: 12/02/19 09:31 Dose: 120 ml Documented by: [id number] Medical Decision Making Differential Diagnosis Infection, dehydration, metabolic abnormality, hypo/hyperglycemia, electrolyte disturbance, anemia, hypoxia, cardiac sources, intracerebral event, toxicologic, neurologic, as well as other pathologies. Medical Records Attestation: I reviewed the patient's medical records. Home Medications Current Medication List: was personally reviewed by me Laboratory Data Attestation: I reviewed the patient's lab results. Result diagrams: 12/03/19 00:50 12/03/19 00:50 Lab Results 12/02/19 12/02/19 12/02/19 Range/Units 09:48 10:02 10:02 WBC 7.69 (4.8-10.8) K/uL RBC 3.75 L (4.2-5.4) M/uL Hgb 11.0 L (12.0-16.0) g/dL Hct 35.5 L (37-47) % MCV 94.7 (80-100) fL MCH 29.3 (25-34) pg MCHC 31.0 L (32-36) g/dL RDW Std Deviation 54.1 H (36.4-46.3) fL RDW Coeff of Caroline 15.8 H (11.5-14.5) % Plt Count 267 (130-400) K/uL MPV 9.2 (7.4-10.4) fL Immature Gran % (Auto) 0.4 % Neut % (Auto) 84.5 % Lymph % (Auto) 11.1 % Bradford % (Auto) 3.4 % Eos % (Auto) 0.5 % Baso % (Auto) 0.1 % Neut # (Auto) 6.50 (1.4-6.5) K/uL Lymph # (Auto) 0.85 L (1.2-3.4) K/uL Bradford # (Auto) 0.26 (0.11-0.59) K/uL Eos # (Auto) 0.04 (0-0.5) K/uL Baso # (Auto) 0.01 (0-0.2) K/uL Immature Gran # (Auto) 0.03 H (0.00-0.02) K/uL PT 11.3 (9.0-12.0) Seconds INR 1.1 (0.9-1.1) APTT 25.9 (21.0-31.0) Seconds PTT Ratio 0.9 Sodium (136-145) mmol/L Potassium (3.5-5.1) mmol/L Chloride (98-107) mmol/L Carbon Dioxide (21-32) mmol/L Anion Gap (3-11) BUN (7-18) mg/dl Creatinine (0.6-1.2) mg/dl Est Cr Clr Drug Dosing ml/min Est GFR ( Amer) Est GFR (Non-Af Amer) BUN/Creatinine Ratio (10-20) Glucose (70-99) mg/dl POC Glucose 158 H (70-99) mg/dl Calcium (8.5-10.1) mg/dl Magnesium (1.8-2.4) mg/dl Total Bilirubin (0.2-1) mg/dl AST (15-37) U/L ALT (12-78) U/L Alkaline Phosphatase (45-117) U/L Troponin I (0-0.045) ng/ml Total Protein (6.4-8.2) gm/dl Albumin (3.4-5.0) gm/dl Globulin (2.5-4.0) gm/dl Albumin/Globulin Ratio (0.9-2) 12/02/19 Range/Units 10:02 WBC (4.8-10.8) K/uL RBC (4.2-5.4) M/uL Hgb (12.0-16.0) g/dL Hct (37-47) % MCV (80-100) fL MCH (25-34) pg MCHC (32-36) g/dL RDW Std Deviation (36.4-46.3) fL RDW Coeff of Caroline (11.5-14.5) % Plt Count (130-400) K/uL MPV (7.4-10.4) fL Immature Gran % (Auto) % Neut % (Auto) % Lymph % (Auto) % Bradford % (Auto) % Eos % (Auto) % Baso % (Auto) % Neut # (Auto) (1.4-6.5) K/uL Lymph # (Auto) (1.2-3.4) K/uL Bradford # (Auto) (0.11-0.59) K/uL Eos # (Auto) (0-0.5) K/uL Baso # (Auto) (0-0.2) K/uL Immature Gran # (Auto) (0.00-0.02) K/uL PT (9.0-12.0) Seconds INR (0.9-1.1) APTT (21.0-31.0) Seconds PTT Ratio Sodium 135 L (136-145) mmol/L Potassium 4.1 (3.5-5.1) mmol/L Chloride 98 (98-107) mmol/L Carbon Dioxide 29 (21-32) mmol/L Anion Gap 8.0 (3-11) BUN 8 (7-18) mg/dl Creatinine 0.94 (0.6-1.2) mg/dl Est Cr Clr Drug Dosing 31.7 ml/min Est GFR ( Amer) 63.2 Est GFR (Non-Af Amer) 54.5 BUN/Creatinine Ratio 8.6 L (10-20) Glucose 140 H (70-99) mg/dl POC Glucose (70-99) mg/dl Calcium 8.7 (8.5-10.1) mg/dl Magnesium 1.9 (1.8-2.4) mg/dl Total Bilirubin 0.3 (0.2-1) mg/dl AST 14 L (15-37) U/L ALT 16 (12-78) U/L Alkaline Phosphatase 77 (45-117) U/L Troponin I < 0.015 (0-0.045) ng/ml Total Protein 7.0 (6.4-8.2) gm/dl Albumin 3.2 L (3.4-5.0) gm/dl Globulin 3.8 (2.5-4.0) gm/dl Albumin/Globulin Ratio 0.8 L (0.9-2) Imaging Data Radiologist's Impression: [place], [place] [phone] XRay Report Patient: LONDON WORTHY Admit Date: 12/02/19 MR#: [id number] Address1: [address] [place] [address] Acct ID:[id number] Address2: Date: 1930 [facility] Zip: [place] [address] Age: 89 Location: ED Sex: F Room/Bed: Att Phy: Diagnosis: stroke alert Dominga Phy: Dulce Maria Quintero DO Service Date: 12/02/19 [facility] Phy: Interpreting Phy: Balbir Glasgow MD Admit Phy: Ordering Phy: Henrqiue White MD cc: ~ XR chest 1V portable CLINICAL HISTORY: Left-sided weakness. COMPARISON STUDY: Chest CT July 07, 2019. Chest radiograph November 22, 2019. FINDINGS: Healing left-sided rib fracture is noted. Lung volumes are diminished. There is no consolidation. No pneumothorax or pleural effusion is noted. Elevation/eventration of the right hemidiaphragm is noted. A hiatal hernia is better depicted on prior CT. There is mild cardiomegaly. Patient is rotated. IMPRESSION: No acute cardiopulmonary findings. Rotated study. No significant change in appearance of the chest. ACT 112: Negative or not required by law. Electronically signed by: Balbir Glasgow M.D. 12/02/2019 10:23 AM Dictated: 12/02/19 1021 Transcribed: 12/02/19 1021 [facility], [place] [phone] CT Scan Report Patient: LONDON WORTHY Admit Date: 12/02/19 MR#: [id number] Address1: [address] [facility] Acct ID:[id number] Address2: Date: 1930 [facility] Zip: [place] [address] Age: 89 Location: ED Sex: F Room/Bed: Att Phy: Diagnosis: stroke alert Dominga Phy: Dulce Maria Quintero DO Service Date: 12/02/19 Fam Phy: Interpreting Phy: Balbir Glasgow MD Admit Phy: Ordering Phy: Henrique White MD cc: ~ CT ANGIOGRAPHY OF THE NECK WITH CONTRAST CLINICAL HISTORY: Stroke evaluation COMPARISON STUDY: CTA of the neck November 22, 2019. Technique: CT angiography of the carotid and vertebral arteries was obtained using Optiray 320 IV and 3D reconstruction on an independent workstation. NASCET criteria was utilized. Automated exposure control was utilized for the study. A dose lowering technique was utilized adhering to the principles of ALARA. CT DOSE: 1060.15 mGy.cm Findings: Lung apices are clear. There is no cervical lymphadenopathy. There is no cervical spine fracture. There is minimal plaque within the bilateral carotid bifurcations without stenosis. There is no intraluminal thrombus. No aneurysm within the neck is noted. No dissection is noted within the major vessels of the neck. The bilateral vertebral arteries are patent. IMPRESSION: No abnormality in carotid and vertebral vessels on contrast enhanced CT angiogram. ACT 112: Negative or not required by law. Electronically signed by: Balbir Glasgow M.D. 12/02/2019 9:47 AM Dictated: 12/02/19943 Transcribed: 12/02/19 0944 [facility], [place] [phone] CT Scan Report Patient: LONDON WORTHY Admit Date: 12/02/19 MR#: [id number] Address1: [address] [place] [address] Acct ID:[id number] Address2: Date: 1930 [facility] Zip: [place] [address] Age: 89 Location: ED Sex: F Room/Bed: Att Phy: Diagnosis: stroke alert Dominga Phy: Dulce Maria Quintero DO Service Date: 12/02/19 [place] Phy: Interpreting Phy: Balbir Glasgow MD Admit Phy: Ordering Phy: Henrique White MD cc: ~ CTA ANGIOGRAPHY OF THE HEAD CLINICAL HISTORY: Stroke evaluation COMPARISON STUDY: CTA of the head and MRI of the brain November 22, 2019. TECHNIQUE: Helical axial images of the head were obtained following uneventful intravenous administration of 120 cc of Optiray 320. Sagittal and coronal reconstructions were viewed as well as maximal intensity projections on an independent 3-D workstation. Automated exposure control was utilized for the study. A dose lowering technique was utilized adhering to the principles of ALARA. FINDINGS: No acute intracranial hemorrhage, midline shift or mass effect is present. Ventricular system is normal. Basilar cisterns are patent. There are no extra axial collections. White matter hypodensity suggests small vessel disease. There is moderate plaque within the bilateral cavernous carotids without stenosis. No central vessel occlusion is noted. There is no intraluminal thrombus. persistence of the right posterior cerebral artery is noted. IMPRESSION: 1. No central vessel occlusion. 2. Moderate plaque within the bilateral cavernous carotids without stenosis. ACT 112: Negative or not required by law. Electronically signed by: Balbir Glasgow M.D. 12/02/2019 9:44 AM Dictated: 12/02/19940 Transcribed: 12/02/19940 [place], [place] [phone] CT Scan Report Patient: LONDON WORTHY Admit Date: 12/02/19 MR#: [id number] Address1: [address] [place] [address] Acct ID:[id number] Address2: Date: 1930 [facility] Zip: [place] [address] Age: 89 Location: ED Sex: F Room/Bed: Att Phy: Diagnosis: stroke alert Dominga Phy: Dulce Maria Quintero DO Service Date: 12/02/19 [place] Phy: Interpreting Phy: Balbir Glasgow MD Admit Phy: Ordering Phy: Henrique White MD cc: ~ CT OF THE HEAD WITHOUT CONTRAST CLINICAL HISTORY: Stroke evaluation COMPARISON STUDY: Head CT, CTA of the head an MRI of the brain November 22, 2019. TECHNIQUE: Helical axial images of the head were obtained without IV contrast. Automated exposure control was utilized for the study. A dose lowering technique was utilized adhering to the principles of ALARA. FINDINGS: No acute intracranial hemorrhage, midline shift or mass effect is present. Extensive white matter hypodensities unchanged and suggest small vessel disease. The ventricular system is unremarkable. The basilar cisterns are patent. No extra-axial collections are present. There are no findings to suggest acute dural sinus thrombosis or acute territorial infarct. No significant calvarial abnormalities are present. Visualized portions of the sinuses and mastoid air cells are clear. IMPRESSION: No acute intracranial findings. No change in appearance of the brain. ACT 112: Negative or not required by law. Electronically signed by: Balbir Glasgow M.D. 12/02/2019 9:40 AM Dictated: 12/02/19936 Transcribed: 12/02/19936 [place], [place] [phone] Magnetic Resonance Report Patient: LONDON WORTHY Admit Date: 12/02/19 MR#: [id number] Address1: [address] [place] [address] Acct ID:[id number] Address2: Date: 1930 [facility] Zip: [place] [address] Age: 89 Location: ED Sex: F Room/Bed: Att Phy: Diagnosis: stroke alert Dominga Phy: Dulce Maria Quintero DO Service Date: 12/02/19 Fam Phy: César Delgado DO Interpreting Phy: Balbir Glasgow MD Admit Phy: Ordering Phy: Henrique White MD cc: ~ MRI OF THE BRAIN WITHOUT CONTRAST CLINICAL HISTORY: Left-sided weakness. COMPARISON STUDY: MRI of the brain November 22, 2019. Head CT and CTA of the head performed earlier today. TECHNIQUE: Utilizing a 1.5 Adriana magnet and dedicated coil, multiplanar, multiecho imaging of the brain was performed without IV contrast. FINDINGS: There are no foci of restricted diffusion to suggest acute infarct. No acute intracranial hemorrhage, midline shift or mass effect is present. Ventricular system is stable. Basilar cisterns are patent. There are no extra axial collections. Flow-voids for the major intracranial vessels are present. There is no intracranial mass on unenhanced exam. Extensive white matter T2 hyperintense foci are unchanged since MRI November 22, 2019. There is moderate atrophy. The appearance of the brain is unchanged. Calvarial signal is normal. IMPRESSION: 1. No acute intracranial findings. 2. No change in appearance of the brain since MRI of November 22, 2019. 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 ACT 112: Negative or not required by law. Electronically signed by: Balbir Glasgow M.D. 12/02/2019 11:59 AM Dictated: 12/02/19 1156 Transcribed: 12/02/19 1156 ECG Data Attestation: I personally reviewed and interpreted this ECG as follows: Indication: + altered mental status Rate (beats per minute): 66 Rhythm: + normal sinus ECG Intervals/blocks: + Left bundle branch block ECG [place]: + Normal ECG ST segments: no ST depression and no ST elevation Comparison ECG Date: from (11/22/2019) Change: no significant change MDM Narrative Patient was seen and evaluated as above in room B1. Review was performed of nursing notes and vital signs. I did review pertinent previous visits and patient history. After obtaining a thorough history and physical examination the above work up was performed. This is an 89-year-old female who presents emergency department with left-sided extremity weakness as well as an acute change in altered mental status. A stroke alert was immediately initiated and the patient sent for CAT scan of the head and neck. This does not show any acute process. I did discuss the case with the neurologist delivery professional. Patient was then sent for an MRI which also does not show any evidence of acute process. The patient however does remain altered. Her urine does not show any evidence of infection she does not have an elevation in her white blood cell count. I did discuss the case with the hospitalist on-call who did agreed admit the patient. An order was placed for continuous cardiac monitoring. The monitor shows a rate of 75 with NS rhythm. The patient was evaluated during the global COVID-19 pandemic, and that diagnosis was suspected/considered upon their initial presentation. Their evaluation, treatment and testing was consistent with current guidelines for patients who present with complaints or symptoms that may be related to COVID- 19. Impression & Plan Altered mental status, Acute left-sided weakness Discharge Plan Visit Data Stated Complaint: stroke alert ED Provider: Henrique White Discharge Problem: Altered mental status, Acute left-sided weakness Patient Disposition: Admitted As Inpatient Discharge Instructions Interventions: ED Discharge Assessment Last Done: 12/02/19 13:58 Discharge Problem: Altered mental status Qualifiers: Altered mental status type: unspecified Qualified Code(s): R41.82 - Altered mental status, unspecified
[2019-12-02 10:38] LABS: Alanine Aminotransferase 16 U/L (12-78); Albumin Level 3.2 gm/dl (3.4-5.0); Aspartate Aminotransferase 14 U/L (15-37); BUN Creatinine Ratio 8.6 (10-20); Blood Urea Nitrogen 8 mg/dl (7-18); Calcium 8.7 mg/dl (8.5-10.1); Carbon Dioxide 29 mmol/L (21-32); Chloride 98 mmol/L (98-107); Creatinine Clr Calc Pharmacy 31.7 ml/min; Est GFR (African American) 63.2; Est GFR (Non-African American) 54.5; Glucose 140 mg/dl (70-99); Magnesium 1.9 mg/dl (1.8-2.4); Potassium 4.1 mmol/L (3.5-5.1); Sodium 135 mmol/L (136-145)
[2019-12-02 10:43] LABS: Albumin Globulin Ratio 0.8 (0.9-2); Alkaline Phosphatase 77 U/L (45-117); Bilirubin,Total 0.3 mg/dl (0.2-1); Globulin 3.8 gm/dl (2.5-4.0); Troponin I < 0.015 ng/ml (0-0.045)
--- NOTE | 2019-12-02 12:00 | Magnetic Resonance Report ---
MRI OF THE BRAIN WITHOUT CONTRAST CLINICAL HISTORY: Left-sided weakness. COMPARISON STUDY: MRI of the brain November 22, 2019. Head CT and CTA of the head performed earlier today. TECHNIQUE: Utilizing a 1.5 Adriana magnet and dedicated coil, multiplanar, multiecho imaging of the bra in was performed without IV contrast. FINDINGS: There are no foci of restricted diffusion to suggest acute infarct. No acute intracranial h emorrhage, midline shift or mass effect is present. Ventricular system is stable. Basilar cisterns ar e patent. There are no extra axial collections. Flow-voids for the major intracranial vessels are pre sent. There is no intracranial mass on unenhanced exam. Extensive white matter T2 hyperintense foci a re unchanged since MRI November 22, 2019. There is moderate atrophy. The appearance of the brain is unchanged. Calvarial signal is normal. IMPRESSION: 1. No acute intracranial findings. 2. No change in appearance of the brain since MRI of November 22, 2019. Extensive small vessel disea se and moderate atrophy. ACT 112: Negative or not required by law. Electronically signed by: Balbir Glasgow M.D. 12/02/2019 11:59 AM
--- NOTE | 2019-12-02 13:48 | History & Physical Report ---
Date of Service December 02, 2019 Assessment & Plan (1) TIA (transient ischemic attack): Patient a fall at home this morning and then had an episode of wandering in the front yard She was brought to the emergency department and a stroke alert was declared. There were no significant focal deficits on exam at that time Patient is being referred for admission and evaluation by physical therapy and Occupational Therapy for potential rehab versus placement Patient currently is on aspirin 324 mg daily for previous history of CVA/TIA Consult neurology PT/OT consults for evaluation and treatment for possible rehab placement Consult case management for discharge planning All imaging found to be negative with no acute changes We will admit the patient to telemetry to rule out arrhythmia Expect need for short-term rehab placement on discharge (2) Dyslipidemia: Continue atorvastatin (3) Hypothyroidism: Continue levothyroxine Most recent TSH was 11/23/2019 and was 3.98 (4) Diabetes mellitus type 2 with complications: Prior to previous admission, patient was on metformin daily This was held secondary to question of hypoglycemia For now we will not order any Lantus or oral agents We will manage the patient with sliding scale insulin with NovoLog with BSG's ACHS Most recent hemoglobin A1c is 5.8 on 11/23/2019 -no need to repeat Correction scale of 1 40-1 84 BSG, correction factor of 20, carbohydrate replacement for 1 unit of insulin for every 17 g of carbohydrate Allow for tolerance with hyperglycemia secondary to age Follow random glucose with daily labs (5) Paroxysmal atrial fibrillation: Normal sinus rhythm on EKG with a QTC of 507 Patient is not on any beta-alvaro or antiplatelet therapy other than aspirin at home Monitor on telemetry Patient is agreeable to electrical cardioversion if needed (6) DVT prophylaxis: QUINCY hurt SCDs Please refer to Dr. Ozuna's addendum for further recommendations and corrections History of Present Illness Primary Care Provider: Dulce Maria Quintero DO Attending: Dr. Ozuna This is an 89-year-old female that lives with her son and dwwrgmys-ul-qmc at home. The patient has a past medical history including diabetes mellitus type 2, hypothyroidism, hyperlipidemia, chronic kidney disease stage III, asthma, allergic rhinitis, GERD, hypertension, paroxysmal SVT, PAF, iron deficiency anemia, restless leg syndrome, osteoarthritis, history of TIA, history of GI bleeds, history of left-sided weakness. The patient is seen in the emergency department in room C for with her son. The patient is extremely hard of hearing and the son is relied upon for accurate history. He states that this morning the patient was up and had a fall. EMS was called. They refused transport to the hospital that time. Later the patient was found to be wandering around in the front yard with her walker. She seemed to be confused with altered mental status. The son then again called EMS who transported her to the emergency room for evaluation. On arrival to the emergency department, a stroke alert was called. By the time the patient was seen, there were no significant acute deficits. CT of the head, CTA of the he ad, CTA of the neck, and brain MRI were all completed with no acute findings. On examination the patient was found to be hard of hearing but otherwise cooperative. Some gaps had to be filled in by her son. She is very pleasant, noncombative, and very cooperative. She denies current headache but states that she had a headache in the middle of the night. She has chronic back pain which she states is consistent with typical back pain. This is confirmed by her son. She has no blurred vision or double vision. Hearing loss is chronic. She has no shortness of breath, nausea, vomiting, new tremors, evidence of acute neurological deficit. The patient has no other acute complaints. She is a lifelong non-smoker She is a lifelong non-alcohol user They have 1 dog at home which is been in the house for several years The patient has no other exposures at home and denies occupational exposure CODE STATUS was discussed and patient has a power of state's attorney as well as living will it was notarized in 1991. In discussion with the son, we will honor the living will. Inasmuch as this is 32 years old, son will discuss with patient after she is recovered. Allergies Allergy/AdvReac Type Severity Reaction Status Date / Time No Known Allergies Allergy Verified 12/02/19 10:50 Home Medications Home Medications Medication Instructions Recorded Confirmed Type ropinirole [Requip] 0.5 mg PO QPM 02/19/18 12/02/19 History trazodone 100 mg PO QPM 02/19/18 12/02/19 History atorvastatin 20 mg PO HS 07/06/19 12/02/19 History levothyroxine 50 mcg PO DAILY 07/06/19 12/02/19 History theophylline 200 mg PO DAILY 07/06/19 12/02/19 History cholecalciferol (vitamin D3) 25 mcg PO DAILY 11/22/19 12/02/19 History [Vitamin D3] cyanocobalamin (vitamin B-12) 1,000 mcg PO DAILY 11/22/19 12/02/19 History [Vitamin B-12] metoprolol tartrate 12.5 mg PO DAILY 11/22/19 12/02/19 History omeprazole 40 mg PO DAILY 11/22/19 12/02/19 History Wheeled Walker #1 ea 11/23/19 Rx aspirin [Ecotrin Low Strength] 81 mg PO DAILY #30 tab 11/23/19 12/02/19 Rx iron,carbonyl-vitamin C [Vitron-C] 1 tab PO DAILY 12/02/19 12/02/19 History loperamide 2 mg PO Q8H PRN 12/02/19 12/02/19 History Past Med/Surg History Medical History Asthma Diabetes mellitus type 2 with complications Diverticulitis Dyslipidemia GI bleed Hemorrhoid Hypothyroidism PSVT (paroxysmal supraventricular tachycardia) Stroke Surgical History No pertinent past surgical history Family History (Updated 12/02/19 @ 13:32 by Alexis Armendariz PA-C) Other Family history non-contributory Social History Smoking Status: Never smoker Hx Alcohol Use: No Hx Substance Use: No Preferred Language: Hungarian Communication Ability: Effective [employer] Estimator Required: No Beliefs That Will Affect Care: None marital status: / Current Living Situation: Family Current Living Situation Comment: son and [id number]-iq-ott Feels Safe at Home: Yes Safety Concerns: Feels Safe At This Time Assistive Devices: Denture - Upper, Glasses and Walker Review of Systems Review of Systems: All systems reviewed & are unremarkable except as noted in HPI & below Physical Exam Physical Exam: GENERAL : No acute distress. Hard of hearing EYES: No icterus, gaze conjugate. Pupils equal round and reactive to light NOSE: No evidence of epistaxis. MOUTH: No lesions or candidiasis. No teeth are present. No dentures are pres ent. NECK: Supple LUNGS: CTA B/L, no wheezes, rales or rhonchi HEART: Regular, rate controlled in the 70s ABDOMEN: Soft, NT, ND, BS Present EXTREMITIES: No LE edema, pedal pulses intact NEURO: A&OX3. Pupils equal round reactive to light. Tongue is midline. There is no facial droop. Patient has questionable weakness to the left side. On examination patient appears to be appropriate strength to bilateral upper and lower extremities. Cerebellar function intact with vdvhns-ka-dkis and rapid alternating movements. Pvbe-xz-bkab is appropriate bilaterally. Toes are downgoing bilaterally. Patient is negative for Homans sign. Results & Data Results & Data ([facility]) Vital Signs (Past 12 Hours) Vital Signs Temp Pulse Resp BP Pulse Ox 12/02/19 13:06 16 142/66 H 93 12/02/19 10:53 75 25 H 12/02/19 10:40 61 151/73 H 96 12/02/19 10:30 56 L 95 12/02/19 10:20 58 L 95 12/02/19 10:10 60 96 12/02/19 10:00 61 97 12/02/19 09:50 76 96 12/02/19 09:41 70 169/65 H 12/02/19 09:40 69 12/02/19 09:19 36.8 C 59 L 18 146/69 H 95 Laboratory Results 12/02/19 10:02 12/02/19 10:02 12/02/19 10:02 Troponin I < 0.015 Diagnostic Findings MRI OF THE BRAIN WITHOUT CONTRAST CLINICAL HISTORY: Left-sided weakness. COMPARISON STUDY: MRI of the brain November 22, 2019. Head CT and CTA of the head performed earlier today. TECHNIQUE: Utilizing a 1.5 Adriana magnet and dedicated coil, multiplanar, multiecho imaging of the brain was performed without IV contrast. FINDINGS: There are no foci of restricted diffusion to suggest acute infarct. No acute intracranial hemorrhage, midline shift or mass effect is present. Ve ntricular system is stable. Basilar cisterns are patent. There are no extra axial collections. Flow-voids for the major intracranial vessels are present. There is no intracranial mass on unenhanced exam. Extensive white matter T2 hyperintense foci are unchanged since MRI November 22, 2019. There is moderate atrophy. The appearance of the brain is unchanged. Calvarial signal is normal. IMPRESSION: 1. No acute intracranial findings. 2. No change in appearance of the brain since MRI of November 22, 2019. 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 ACT 112: Negative or not required by law. Electronically signed by: Balbir Glasgow M.D. 12/02/2019 11:[address] ANGIOGRAPHY OF THE NECK WITH CONTRAST CLINICAL HISTORY: Stroke evaluation COMPARISON STUDY: CTA of the neck November 22, 2019. Technique: CT angiography of the carotid and vertebral arteries was obtained using Optiray 320 IV and 3D reconstruction on an independent workstation. NASCET criteria was utilized. Automated exposure control was utilized for the study. A dose lowering technique was utilized adhering to the principles of ALARA. CT DOSE: 1060.15 mGy.cm Findings: Lung apices are clear. There is no cervical lymphadenopathy. There is no cervical spine fracture. There is minimal plaque within the bilateral carotid bifurcations without stenosis. There is no intraluminal thrombus. No aneurysm within the neck is noted. No dissection is noted within the major vessels of the neck. The bilateral vertebral arteries are patent. IMPRESSION: No abnormality in carotid and vertebral vessels on contrast enhanced CT angiogram. ACT 112: Negative or not required by law. Electronically signed by: Balbir Glasgow M.D. 12/02/2019 9:47 AM CTA ANGIOGRAPHY OF THE HEAD CLINICAL HISTORY: Stroke evaluation COMPARISON STUDY: CTA of the head and MRI of the brain November 22, 2019. TECHNIQUE: Helical axial images of the head were obtained following uneventful intravenous administration of 120 cc of Optiray 320. Sagittal and coronal reconstructions were viewed as well as maximal intensity projections on an independent 3-D workstation. Automated exposure control was utilized for the study. A dose lowering technique was utilized adhering to the principles of ALARA. FINDINGS: No acute intracranial hemorrhage, midline shift or mass effect is present. Ventricular system is normal. Basilar cisterns are patent. There are no extra axial collections. White matter hypodensity suggests small vessel disease. There is moderate plaque within the bilateral cavernous carotids without jeff nosis. No central vessel occlusion is noted. There is no intraluminal thrombus. persistence of the right posterior cerebral artery is noted. IMPRESSION: 1. No central vessel occlusion. 2. Moderate plaque within the bilateral cavernous carotids without stenosis. ACT 112: Negative or not required by law. Electronically signed by: Balbir Glasgow M.D. 12/02/2019 9:44 AM XR chest 1V portable CLINICAL HISTORY: Left-sided weakness. COMPARISON STUDY: Chest CT July 07, 2019. Chest radiograph November 22, 2019. FINDINGS: Healing left-sided rib fracture is noted. Lung volumes are diminished. There is no consolidation. No pneumothorax or pleural effusion is noted. Elevation/eventration of the right hemidiaphragm is noted. A hiatal hernia is better depicted on prior CT. There is mild cardiomegaly. Patient is rotated. IMPRESSION: No acute cardiopulmonary findings. Rotated study. No significant change in appearance of the chest. ACT 112: Negative or not required by law. Electronically signed by: Balbir Glasgow M.D. 12/02/2019 10:23 AM ECG Rhythm: normal sinus Findings: + LBBB and + prolonged QT Comparison ECG Date: from (11/22/2019) Change: no significant change Code Status & VTE Plan Code Status Patient would be a conditional code. She requests chest compressions and electrical cardioversion. It is understood that the patient should have a CODE BLUE that she would want mechanical ventilation for a short period. If patient should have isolated respiratory failure, she does not wish to be intubated and does not wish for mechanical ventilation. In the event that she has a cardiac arrest and ACLS protocol is followed and includes endotracheal intubation, she would desire this. VTE Prophylaxis Plan VTE Prophylaxis will be ordered: Yes Supervising Physician Co-Signing Physician Notes Patient seen and examined by me, care coordinated with Alexis armendariz PA-C, please refer to his note above for further detail. Pt is an 89 y/o female with history of asthma, diabetes mellitus type 2, hyperlipidemia, chronic kidney disease stage III, GERD, hypertension, paroxysmal SVT, PAF, iron deficiency anemia, restless leg syndrome, osteoarthritis, history of TIA, history of GI bleeds, history of left-sided weakness, who now presents with weakness and confusion. Patient presents with her son at the bedside, who provides most of the history. Son is worried that patient's symptoms were consistent with a stroke, however he also reports that within 15 minutes they have resolved. Patient was wandering by herself with a walker in their yard, which is very unusual for her. She also fell and so EMS was called. CT head, CTA of head and neck, MRI, negative for acute event. Currently patient is lying in bed in no acute distress, she is very hard of hearing, however currently has no complaints, except for feeling cold in her lower extremities. she is answering most questions appropriately. She denies any fevers, chills, chest pain, shortness of breath, abdominal pain, nausea or vomiting. Lung sounds are clear to auscultation bilaterally without any wheezing rhonchi or crackles. Heart sounds are regular, abdomen is soft, nontender, nondistended. EOMI, PERRL, speech fluent, no facial asymmetry noted, patient moves all 4 extremities spontaneously without difficulty, no local w eakness noted, no sensory loss noted. Rhqttg-rq-gmpa and tofs-ew-nvcv essentially normal. Skin is warm, dry, no rashes or lesions noted. Will observe patient on telemetry, continue her daily baby aspirin, patient has history of paroxysmal A. fib however not on Eliquis anymore due to history of GI bleeds. Most recently her metformin was also stopped as it was believed that maybe she was having these episodes from hypoglycemia. Will obtain PT OT, and discuss further with neurology. Brigida Ozuna MD
[2019-12-02] MEDS ORDERED: GLUCAGON FOR INJ 1 MG VIAL SQ PRN (14:35)
[2019-12-02] MEDS ORDERED: ONDANSETRON INJ 2 MG/ML 2 ML VIAL IV PRN (14:35)
[2019-12-02] MEDS ORDERED: CARBOHYDRATES FOR HYPOGLYCEMIA PO PRN (14:35)
[2019-12-02] MEDS ORDERED: POLYETHYLENE (MIRALAX) 17 GM PACK PO PRN (14:35)
[2019-12-02] MEDS ORDERED: GLUCOSE 10 TABS/TUBE PO PRN (14:35)
[2019-12-02] MEDS ORDERED: GLUCOSE 40% GEL 15 GM TUBE PO PRN (14:35)
[2019-12-02] MEDS ORDERED: ACETAMINOPHEN 325 MG TAB PO PRN (14:35)
[2019-12-02] MEDS ORDERED: DEXTROSE 50% 50 ML SYRINGE IV PRN (14:35)
[2019-12-02] MEDS ORDERED: MAGNESIUM HYDROXIDE SUSP 30 ML UDC PO PRN (14:35)
[2019-12-02] MEDS ORDERED: ALUMINUM/MAGNESIUM SUSP 30 ML UDC PO PRN (14:35)
[2019-12-02] MEDS ORDERED: LOPERAMIDE HCL 2 MG CAP PO PRN (14:35)
--- NOTE | 2019-12-02 15:56 | Communication Note ---
Date of Service: December 02, 2019 Anu is 89 years old was admitted to the hospital after having a fall at home for which she was not brought to the hospital from which she recovered. She did not particularly strike her head or have any injury Later however she was found wandering in front yard in a slightly confused state was brought to the hospital a stroke alert was called and multiple diagnostic studies including CTA's MRIs etc. were unchanged from her recent series done about 10 days ago after she was admitted to the hospital for some transient left leg weakness and was felt possibly to have a TIA versus a migraine as all of this occurred in the setting of a prior headache. She was seen by Dr. Dixon and refer the reader to his extensive consult and conclusions that she needed only aspirin and perhaps a rehabilitation A neurologic follow-up was to have been obtained about 8 weeks after that discharge he is now back in the hospital for somewhat different event All of this occurs in the setting of chronic ambulatory dysfunction, dyslipidemia, hypothyroidism, asthma, type 2 diabetes with neuropathy, paroxysmal atrial fibrillation, history of atypical chest pain, paroxysmal supraventricular tachycardia, possible TIA, blood loss anemia, prior remote CVA, hemorrhoids and diverticulosis Medications at home include aspirin 81 mg, atorvastatin, vitamin D, vitamin B12, iron, levothyroxine, loperamide, metoprolol, omeprazole, Requip, theophylline, trazodone She is markedly hearing impaired I do not know what her baseline mental status might be but suspect there is an underlying cognitive impairment superimposed upon her hearing loss At present unfortunately no family members are available but I did review the extensive history and physical by Alexsi armendariz PA-C and Dr. Dixon's prior neurologic consultation of 10 days ago Patient herself is of limited value as a historian. She recalls falling but does not recall wandering about in the yard know she is here in the hospital cannot tell me the year or the date but does recall having been here about a month ago (in reality it was 10 days ago) On exam blood pressure is 125/74 pulse is recorded at 55 but my exam would suggest more like 75 slightly irregular temperature 36 7 O2 saturations 92 she is pleasant cooperative clearly hearing impaired very vague as a historian has normal eye movements normal gross visual acuity and visual felder normal facial motility clear speech normal facial sensation I do not see any tremor or tics or choreiform activity she moves all extremities well. Strength testing is difficult because of her limited comprehension of the task but she seems to put forth good effort reflexes are absent at the ankles reduced at the knees toes are downgoing and sensation reveals loss of vibratory and to some degree light touch distal to the knees but is unreliable I do not hear any carotid bruits or clear cardiac murmurs peripheral pulses seem to be present without much peripheral edema CT angiographic studies CT scan of the head and MRI scan show only chronic leukoencephalopathy and volume loss appropriate for age no evidence for new infarction I am not sure what the cause for the wandering in the yard might have been. This woman is hearing impaired as I believe significant cognitive impairment superimposed upon this and may have simply been wandering in the yard but did have a fall might have had a subclinical seizure although I doubt it so all I am going to suggested that we continue the aspirin and get an EEG and I will follow-up on this in the morning She should continue the plans for outpatient rehabilitation etc. as outlined on Alexis Armendariz's note Ciaran Wright MD
[2019-12-02] MEDS: INSULIN ASPART 100 UNITS/ML 3 ML PEN SC SCH ×2 (17:15→21:12)
[2019-12-02] MEDS: ROPINIROLE HCL 0.25 MG TABLET PO SCH (20:16)
[2019-12-02] MEDS: ATORVASTATIN 20 MG TAB PO SCH (20:16)
[2019-12-02] MEDS: TRAZODONE HCL 100 MG TAB PO SCH (20:16)
[2019-12-02 23:37] LABS: Appearance Urine Clear (Clear); Bacteria Urine Automated Negative (Negative); Bilirubin Urine Negative (Negative); Blood Urine Negative (Negative); Color Urine Yellow; Epithelial Cell Urine Auto 20-30 /lpf (0-5); Glucose Urine UA Negative (Negative); Ketones Urine Negative (Negative); Leukocyte Esterase Urine 2+ (Negative); Nitrite Urine Negative (Negative); Protein Urine Negative (Negative); Specific Gravity Urine 1.027 (1.000-1.030); Urobilinogen Urine Negative (Negative); pH Urine 5.5 (4.5-7.5)
[2019-12-03] MEDS ORDERED: SODIUM CHLORIDE 0.9% 1000ML 1,000 ML IV ONE (00:11)
--- NOTE | 2019-12-03 00:20 | Communication Note ---
Date of Service: December 03, 2019 Confusion, agitation overnight as per RN. UA WBC est AP Encephalopathy Possible UTI Following urine cultures, IV Ceftriaxone for now Will relay to AM provider.
[2019-12-03 01:00] LABS: Basophils # (auto) 0.01 K/uL (0-0.2); Basophils % (auto) 0.1 %; Eosinophils # (auto) 0.11 K/uL (0-0.5); Eosinophils % (auto) 1.3 %; Hematocrit (blood only) 33.5 % (37-47); Hemoglobin 10.2 g/dL (12.0-16.0); Immature Granulocytes # (auto) 0.02 K/uL (0.00-0.02); Immature Granulocytes % (auto) 0.2 %; Lymphocytes # (auto) 1.83 K/uL (1.2-3.4); Lymphocytes % (auto) 20.9 %; Mean Corpuscular Hgb Conc 30.4 g/dL (32-36); Mean Corpuscular Volume 95.2 fL (80-100); Monocytes % (auto) 5.7 %; Neutrophils # (auto) 6.27 K/uL (1.4-6.5); Neutrophils % (auto) 71.8 %; Platelet Count 279 K/uL (130-400); RDW Coefficient of Variation 15.9 % (11.5-14.5); RDW Standard Deviation 55.5 fL (36.4-46.3); Red Blood Count 3.52 M/uL (4.2-5.4); White Blood Count 8.74 K/uL (4.8-10.8)
[2019-12-03] MEDS: cefTRIAXone SODIUM 1,000 MG in DEXTROSE 5% 50 ML IV SCH (01:03)
[2019-12-03 01:21] LABS: BUN Creatinine Ratio 11.2 (10-20); Calcium 8.6 mg/dl (8.5-10.1); Creatinine Clr Calc Pharmacy 29.8 ml/min; Est GFR (African American) 58.7; Est GFR (Non-African American) 50.6; Potassium 3.8 mmol/L (3.5-5.1)
[2019-12-03] MEDS: LEVOTHYROXINE SODIUM 50 MCG TABLET PO SCH (05:27)
--- NOTE | 2019-12-03 06:22 | Electrocardiogram Report ---
Test Reason : Blood Pressure : / mmHG Vent. Rate : 066 BPM Atrial Rate : 066 BPM P-R Int : 178 ms QRS Dur : 130 ms QT Int : 484 ms P-R-T Axes : 064 -13 090 degrees QTc Int : 507 ms Poor data quality, interpretation may be adversely affected Normal sinus rhythm Left bundle branch block Abnormal ECG When compared with ECG of 22-NOV-2019 00:04, No significant change was found Confirmed by Guzman Alegria ([id number]) on 12/02/2019 11:56:08 AM Referred By: Confirmed By:Guzman Alegria
[2019-12-03] MEDS ORDERED: NON-FORMULARY MEDICATION (Iron,Carbonyl-Vitamin C [Vitron-C] 1 TAB) PO SCH (09:00)
[2019-12-03] MEDS: INSULIN ASPART 100 UNITS/ML 3 ML PEN SC SCH ×4 (10:30→20:24)
[2019-12-03] MEDS: CHOLECALCIFEROL 1,000 UNITS 25 MCG TAB PO SCH (11:43)
[2019-12-03] MEDS: CYANOCOBALAMIN 500 MCG TABLET (VITAMIN B-12) PO SCH (11:44)
[2019-12-03] MEDS: PANTOprazole 40 MG TAB PO SCH (11:44)
[2019-12-03] MEDS: METOPROLOL TARTRATE 25 MG TAB PO SCH (11:45)
[2019-12-03] MEDS: THEOPHYLLINE 400 MG EXTENDED REL TAB PO SCH (11:46)
[2019-12-03] MEDS: ASPIRIN 81 MG ECTAB PO SCH (11:47)
--- NOTE | 2019-12-03 12:15 | Electroencephalogram ---
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 Home Medication List Home Medications Medication Instructions Recorded Confirmed Type ropinirole [Requip] 0.5 mg PO QPM 02/19/18 12/02/19 History trazodone 100 mg PO QPM 02/19/18 12/02/19 History atorvastatin 20 mg PO HS 07/06/19 12/02/19 History levothyroxine 50 mcg PO DAILY 07/06/19 12/02/19 History theophylline 200 mg PO DAILY 07/06/19 12/02/19 History cholecalciferol (vitamin D3) 25 mcg PO DAILY 11/22/19 12/02/19 History [Vitamin D3] cyanocobalamin (vitamin B-12) 1,000 mcg PO DAILY 11/22/19 12/02/19 History [Vitamin B-12] metoprolol tartrate 12.5 mg PO DAILY 11/22/19 12/02/19 History omeprazole 40 mg PO DAILY 11/22/19 12/02/19 History Wheeled Walker #1 ea 11/23/19 Rx aspirin [Ecotrin Low Strength] 81 mg PO DAILY #30 tab 11/23/19 12/02/19 Rx iron,carbonyl-vitamin C [Vitron-C] 1 tab PO DAILY 12/02/19 12/02/19 History loperamide 2 mg PO Q8H PRN 12/02/19 12/02/19 History Inpatient Medication List Aspirin (Aspirin 81 Mg Ectab) 81 mg PO DAILY [facility] Stop: 01/02/20 08:59 Last Admin: 12/03/19 11:47 Dose: 81 mg Documented by: [id number] Atorvastatin Calcium (Atorvastatin 20 Mg Tab) 20 mg PO [facility] Stop: 01/01/20 20:59 Last Admin: 12/02/19 20:16 Dose: 20 mg Documented by: [id number] Cyanocobalamin (Cyanocobalamin 500 Mcg Tablet (Vitamin B-12)) 1,000 mcg PO DAILY [facility] Stop: 01/02/20 08:59 Last Admin: 12/03/19 11:44 Dose: 1,000 mcg Documented by: [id number] Ceftriaxone Sodium 1,000 mg/ (Dextrose) 50 mls @ 100 mls/hr IV Q24H [facility]; Protocol Stop: 12/13/19 00:14 Last Infusion: 12/03/19 01:47 Dose: 0 mls/hr Documented by: [id number] Admin: 12/03/19 01:03 Dose: 100 mls/hr Documented by: [id number] Sodium Chloride (Nss 1000ml) 1,000 mls @ 60 mls/hr IV .[id number] ONE Stop: 12/03/19 16:50 Last Infusion: 12/03/19 11:47 Dose: 60 mls/hr Documented by: [id number] Infusion: 12/03/19 02:20 Dose: 0 mls/hr Documented by: [id number] Admin: 12/03/19 00:54 Dose: 60 mls/hr Documented by: [id number] Insulin Aspart (Insulin Aspart 100 Units/Ml 3 Ml Pen) 0 units SC ACHS [facility] Stop: 01/01/20 16:29 Last Admin: 12/03/19 10:30 Dose: Not Given Documented by: [id number] Admin: 12/02/19 21:12 Dose: Not Given Documented by: [id number] Cosigned by: [id number] Admin: 12/02/19 17:15 Dose: Not Given Documented by: [id number] Cosigned by: [id number] Levothyroxine Sodium (Levothyroxine Sodium 50 Mcg Tablet) 50 mcg PO DAILYBB [facility] Stop: 01/02/20 06:29 Last Admin: 12/03/19 05:27 Dose: 50 mcg Documented by: [id number] Metoprolol Tartrate (Metoprolol Tartrate 25 Mg Tab) 12.5 mg PO DAILY [facility] Stop: 01/02/20 08:59 Last Admin: 12/03/19 11:45 Dose: 12.5 mg Documented by: [id number] Pantoprazole Sodium (Pantoprazole 40 Mg Tab) 40 mg PO DAILY [facility] Stop: 01/02/20 08:59 Last Admin: 12/03/19 11:44 Dose: 40 mg Documented by: [id number] Ropinirole HCl (Ropinirole Hcl 0.25 Mg Tablet) 0.5 mg PO QPM [facility] Stop: 01/01/20 20:59 Last Admin: 12/02/19 20:16 Dose: 0.5 mg Documented by: [id number] Theophylline (Theophylline 400 Mg Extended Rel Tab) 200 mg PO DAILY [facility] Stop: 01/02/20 08:59 Last Admin: 12/03/19 11:46 Dose: 200 mg Documented by: [id number] Trazodone HCl (Trazodone Hcl 100 Mg Tab) 100 mg PO QPM [facility] Stop: 01/01/20 20:59 Last Admin: 12/02/19 20:16 Dose: 100 mg Documented by: [id number] Vitamin D (Cholecalciferol 1,000 Units 25 Mcg Tab) 1,000 units PO DAILY [facility] Stop: 01/02/20 08:59 Last Admin: 12/03/19 11:43 Dose: 1,000 units Documented by: [id number] Discontinued Medications Aspirin (Aspirin Chew 324 Mg) 324 mg PO NOW STA Stop: 12/02/19 09:47 Last Admin: 12/02/19 10:23 Dose: 324 mg Documented by: [id number] Magnesium Sulfate/Dextrose (Magnesium Sulfate / D5w) 1 gm in 100 mls @ 100 mls/hr IV NOW STA Stop: 12/02/19 10:38 Last Infusion: 12/02/19 11:27 Dose: 0 mls/hr Documented by: [id number] Admin: 12/02/19 10:23 Dose: 100 mls/hr Documented by: [id number] Magnesium Sulfate/Dextrose (Magnesium Sulfate / D5w) 1 gm in 100 mls @ 50 mls/hr IV ONE ONE Stop: 12/02/19 11:44 Last Infusion: 12/02/19 14:42 Dose: 0 mls/hr Documented by: [id number] Infusion: 12/02/19 11:13 Dose: 0 mls/hr Documented by: [id number] Admin: 12/02/19 11:13 Dose: 50 mls/hr Documented by: [id number] Sodium Chloride (Nss) 500 mls @ 999 mls/hr IV .Q31M ONE Stop: 12/02/19 10:15 Last Infusion: 12/02/19 11:12 Dose: 0 mls/hr Documented by: [id number] Admin: 12/02/19 10:23 Dose: 999 mls/hr Documented by: [id number] Ioversol (Optiray 320 125ml) 120 ml IV ONCE ONE Stop: 12/02/19 09:32 Last Admin: 12/02/19 09:31 Dose: 120 ml Documented by: [id number] Description This is a 21 electrode EEG with a single channel dedicated to limited EKG. The electrodes were placed in accordance with the International 10-20 system. This EEG was done as a bedside recording is of good technical quality. Video analysis and photic stimulation was performed. Patient appears to be in a jose r wsy state during much of the tracing clinically when there is no evidence for normal alpha rhythm and a modest amount of theta delta activity of symmetrical type without overt sleep spindles or K complexes. Periodically the patient does enter into a more aroused state during which there is a background rhythm in the lower alpha upper theta range of 8 to 9 Hz and of up to 30 V maximal amplitude which is maximum posteriorly and bilaterally symmetrical. During the same intervals there is evidence for a modest amount of polymorphic theta delta activity over the central regions without rhythmic qualities associated potentially epileptic patterns. Beta activity seen bifrontally. Photic stimulation provokes no important changes but also fails to induce significant driving response No time during the waking tracing or drowsy tracing is evidence for potentially epileptogenic patterns Interpretation Mildly diffusely abnormal EEG indicating a nonspecific nonfocal encephalopathy without associated potentially epileptiform patterns Clinical Correlation Mild generalized encephalopathy without epileptic features which is highly nonspecific in this clinical setting correlate with some underlying subcortical encephalopathy or mild generalized disorder affecting cortical neuronal structur e and function in a diffuse fashion. Ciaran Wright MD
--- NOTE | 2019-12-03 16:00 | Communication Note ---
Date of Service: December 03, 2019 I saw Anu today. She is pleasantly confused has no clear focal neurologic deficits but now he is requiring one-on-one supervision because she is tending to pull out her intravenous lines Her imaging studies show a significant confluent leukoencephalopathy but no acute new lesions angiographic studies have shown no extracranial source of emboli the echocardiographic studies have been unremarkable and Dr. 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 I am not sure what plans the family has for placement and whether or not they feel it is needed as I think she is fairly well supervised at home right now Neurology is going to sign off at this time as I do not think again they were justified in adding Plavix to her current antiplatelet regimen as I do not think will make any difference and will simply increase her risk for bleeding Ciaran Wright MD
--- NOTE | 2019-12-03 18:39 | Hospitalist Progress Note ---
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: Prior to previous admission, patient was on metformin daily This was held secondary to question of hypoglycemia For now we will not order any Lantus or oral agents We will manage the patient with sliding scale insulin with NovoLog with BSG's ACHS Most recent hemoglobin A1c is 5.8 on 11/23/2019 -no need to repeat Correction scale of 1 40-1 84 BSG, correction factor of 20, carbohydrate replacement for 1 unit of insulin for every 17 g of carbohydrate Allow for tolerance with hyperglycemia secondary to age Follow random glucose with daily labs Dyslipidemia: Continue atorvastatin Hypothyroidism: Continue levothyroxine Most recent TSH was 11/23/2019 and was 3.98 DVT prophylaxis: QUINCY hurt SCDs Disposition PT/OT evaluation may need to transition to Rehab plan of care discussed with patient and her son, Daughter in Law in detail and at length all questions answered they are understanding, agreeable, comfortable with the plan of care Carlos Espinosa MD Admission and Anticipated Discharge Date Admission Date: December 02, 2019 Subjective ff up for altered mental status, UTI, etc seen resting in bedside chair, 1:1 observation alert, oriented x 2, answers most questions appropriately but sometimes gets confused reports suprapubic discomfort, denies urinary symptoms, nausea/vomiting no fever/chills, chest pain, dyspnea, palpitations no other symptoms Review of Systems Review of Systems: All systems reviewed & are unremarkable except as noted in Subjective Physical Exam Physical Exam: General- oriented x 1-2, not in distress, speaks in sentences with no effort or accessory muscle use Eyes- anicteric Neck- no JVD Lungs- clear breath sounds bilaterally, no rales/wheezes Heart- normal rate, regular rhythm; no murmurs Abdomen- normal bowel sounds, nondistended, soft, (+) mild suprapubic tenderness Extremities- no pretibial edema, no calf tenderness Neuro- alert, oriented x 1-2; occasionally gets confused; no gross focal neurologic deficits Skin- warm & dry Results & Data Results & Data ([facility]) Vital Signs (Past 12 Hours) Vital Signs Temp Pulse Resp BP Pulse Ox 12/03/19 15:14 36.9 C 56 L 18 108/69 93 12/03/19 11:00 36.5 C 74 18 132/77 94 12/03/19 07:35 36.7 C 86 18 137/56 L 95 Laboratory Results Laboratory Results - last 24 hr 12/02/19 12/02/19 12/02/19 20:51 23:10 23:59 WBC RBC Hgb Hct MCV MCH MCHC RDW Std Deviation RDW Coeff of Caroline Plt Count MPV Immature Gran % (Auto) Neut % (Auto) Lymph % (Auto) Dubois % (Auto) Eos % (Auto) Baso % (Auto) Neut # (Auto) Lymph # (Auto) Dubois # (Auto) Eos # (Auto) Baso # (Auto) Immature Gran # (Auto) Sodium Potassium Chloride Carbon Dioxide Anion Gap BUN Creatinine Est Cr Clr Drug Dosing Est GFR ( Amer) Est GFR (Non-Af Amer) BUN/Creatinine Ratio Glucose POC Glucose 147 H 119 H Calcium Urine Color Yellow Urine Appearance Clear Urine pH 5.5 Ur Specific Maceo 1.027 Urine Protein Negative Urine Glucose (UA) Negative Urine Ketones Negative Urine Blood Negative Urine Nitrite Negative Urine Bilirubin Negative Urine Urobilinogen Negative Ur Leukocyte Esterase 2+ H Urine WBC (Auto) 10-30 H Urine RBC (Auto) 5-10 H U Hyaline Cast (Auto) 1-5 U Epithel Cells (Auto) 20-30 H Urine Bacteria (Auto) Negative Theophylline 12/03/19 12/03/19 12/03/19 00:50 00:50 00:50 WBC 8.74 RBC 3.52 L Hgb 10.2 L Hct 33.5 L MCV 95.2 MCH 29.0 MCHC 30.4 L RDW Std Deviation 55.5 H RDW Coeff of Caroline 15.9 H Plt Count 279 MPV 9.0 Immature Gran % (Auto) 0.2 Neut % (Auto) 71.8 Lymph % (Auto) 20.9 Dubois % (Auto) 5.7 Eos % (Auto) 1.3 Baso % (Auto) 0.1 Neut # (Auto) 6.27 Lymph # (Auto) 1.83 Dubois # (Auto) 0.50 Eos # (Auto) 0.11 Baso # (Auto) 0.01 Immature Gran # (Auto) 0.02 Sodium 139 Potassium 3.8 Chloride 103 Carbon Dioxide 29 Anion Gap 7.0 BUN 11 Creatinine 1.00 Est Cr Clr Drug Dosing 29.8 Est GFR ( Amer) 58.7 Est GFR (Non-Af Amer) 50.6 BUN/Creatinine Ratio 11.2 Glucose 110 H POC Glucose Calcium 8.6 Urine Color Urine Appearance Urine pH Ur Specific Maceo Urine Protein Urine Glucose (UA) Urine Ketones Urine Blood Urine Nitrite Urine Bilirubin Urine Urobilinogen Ur Leukocyte Esterase Urine WBC (Auto) Urine RBC (Auto) U Hyaline Cast (Auto) U Epithel Cells (Auto) Urine Bacteria (Auto) Theophylline 14 12/03/19 12/03/19 12/03/19 07:30 11:28 16:43 WBC RBC Hgb Hct MCV MCH MCHC RDW Std Deviation RDW Coeff of Caroline Plt Count MPV Immature Gran % (Auto) Neut % (Auto) Lymph % (Auto) Dubois % (Auto) Eos % (Auto) Baso % (Auto) Neut # (Auto) Lymph # (Auto) Dubois # (Auto) Eos # (Auto) Baso # (Auto) Immature Gran # (Auto) Sodium Potassium Chloride Carbon Dioxide Anion Gap BUN Creatinine Est Cr Clr Drug Dosing Est GFR ( Amer) Est GFR (Non-Af Amer) BUN/Creatinine Ratio Glucose POC Glucose 119 H 183 H 145 H Calcium Urine Color Urine Appearance Urine pH Ur Specific Maceo Urine Protein Urine Glucose (UA) Urine Ketones Urine Blood Urine Nitrite Urine Bilirubin Urine Urobilinogen Ur Leukocyte Esterase Urine WBC (Auto) Urine RBC (Auto) U Hyaline Cast (Auto) U Epithel Cells (Auto) Urine Bacteria (Auto) Theophylline
[2019-12-03] MEDS: TRAZODONE HCL 100 MG TAB PO SCH (20:17)
[2019-12-03] MEDS: ATORVASTATIN 20 MG TAB PO SCH (20:17)
[2019-12-03] MEDS: ROPINIROLE HCL 0.25 MG TABLET PO SCH (20:18)
[2019-12-04] MEDS: cefTRIAXone SODIUM 1,000 MG in DEXTROSE 5% 50 ML IV SCH (00:56)
[2019-12-04] MEDS: LEVOTHYROXINE SODIUM 50 MCG TABLET PO SCH (05:56)
--- NOTE | 2019-12-04 06:01 | Electrocardiogram Report ---
Test Reason : Blood Pressure : / mmHG Vent. Rate : 076 BPM Atrial Rate : 076 BPM P-R Int : 180 ms QRS Dur : 126 ms QT Int : 432 ms P-R-T Axes : 049 -12 118 degrees QTc Int : 486 ms Normal sinus rhythm Left bundle branch block Abnormal ECG When compared with ECG of 02-DEC-2019 09:43, No significant change was found Confirmed by Pee Clement ([id number]) on 12/04/2019 6:01:16 AM Referred By: REFERRED SELF Confirmed By:Pee Clement
[2019-12-04] MEDS: THEOPHYLLINE 400 MG EXTENDED REL TAB PO SCH (08:14)
[2019-12-04] MEDS: PANTOprazole 40 MG TAB PO SCH (08:14)
[2019-12-04] MEDS: CYANOCOBALAMIN 500 MCG TABLET (VITAMIN B-12) PO SCH (08:14)
[2019-12-04] MEDS: ASPIRIN 81 MG ECTAB PO SCH (08:14)
[2019-12-04] MEDS: CHOLECALCIFEROL 1,000 UNITS 25 MCG TAB PO SCH (08:14)
[2019-12-04] MEDS: METOPROLOL TARTRATE 25 MG TAB PO SCH (08:14)
[2019-12-04] MEDS: INSULIN ASPART 100 UNITS/ML 3 ML PEN SC SCH ×4 (08:15→21:12)
[2019-12-04] MEDS: ATORVASTATIN 20 MG TAB PO SCH (20:34)
[2019-12-04] MEDS: TRAZODONE HCL 100 MG TAB PO SCH (20:34)
[2019-12-04] MEDS: ROPINIROLE HCL 0.25 MG TABLET PO SCH (20:36)
--- NOTE | 2019-12-04 22:46 | Electrocardiogram Report ---
Test Reason : Blood Pressure : / mmHG Vent. Rate : 061 BPM Atrial Rate : 061 BPM P-R Int : 168 ms QRS Dur : 130 ms QT Int : 460 ms P-R-T Axes : 031 -19 128 degrees QTc Int : 463 ms Normal sinus rhythm with sinus arrhythmia Left bundle branch block Abnormal ECG When compared with ECG of 03-DEC-2019 07:37, No significant change was found Confirmed by Pee Clement ([id number]) on 12/04/2019 10:46:38 PM Referred By: REFERRED SELF Confirmed By:Pee Clement
[2019-12-05] MEDS: cefTRIAXone SODIUM 1,000 MG in DEXTROSE 5% 50 ML IV SCH (00:37)
--- NOTE | 2019-12-05 01:09 | Hospitalist Progress Note ---
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 -- Brain MRI: no acute CVA -- Neurologist consulted, continue ASA -- Urine culture 11/30/19 done in [facility]: (+) Klebsiella, sensitive to Ceftriaxone repeat Urine culture: negative so far Blood cultures: negative so far --mental status seems to have improved may be back to baseline now -- continue empiric Ceftriaxone IV -- PT/OT evaluation may need to transition to Rehab Paroxysmal atrial fibrillation: continue Metoprolol, ASA 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: Prior to previous admission, patient was on metformin daily This was held secondary to question of hypoglycemia For now we will not order any Lantus or oral agents We will manage the patient with sliding scale insulin with NovoLog with BSG's ACHS Most recent hemoglobin A1c is 5.8 on 11/23/2019 -no need to repeat Correction scale of 1 40-1 84 BSG, correction factor of 20, carbohydrate replacement for 1 unit of insulin for every 17 g of carbohydrate Allow for tolerance with hyperglycemia secondary to age Follow random glucose with daily labs Dyslipidemia: Continue atorvastatin Hypothyroidism: Continue levothyroxine Most recent TSH was 11/23/2019 and was 3.98 DVT prophylaxis: QUINCY hurt SCDs Disposition PT/OT evaluation may need to transition to Rehab Carlos Espinosa MD Admission and Anticipated Discharge Date Admission Date: December 02, 2019 Subjective ff up for encephalopathy, UTI seen resting in bed, comfortable in good spirits, calm, cooperative oriented x 2, answers most questions appropriately states she feels fine overall abdominal pain resolved, no urinary symptoms denies chest pain, palpitations, dizziness, headache no other pain in her body no other symptoms Review of Systems Review of Systems: All systems reviewed & are unremarkable except as noted in Subjective Physical Exam Physical Exam: General- oriented x 2, not in distress, speaks in sentences with no effort or accessory muscle use Eyes- anicteric Neck- no JVD Lungs- clear breath sounds bilaterally no crackles/wheezing Heart- normal rate, regular rhythm; no murmurs Abdomen- normal bowel sounds, nondistended, soft, nontender Extremities- no pretibial edema, no calf tenderness Neuro- alert, oriented x2; no gross focal neurologic deficits Skin- warm & dry Results & Data Results & Data ([place]) Vital Signs (Past 12 Hours) Vital Signs Temp Pulse Pulse Resp BP BP Pulse Ox 12/05/19 00:09 71 12/04/19 22:36 36.8 C 68 16 167/81 H 92 12/04/19 18:56 37.0 C 62 18 160/82 H 93 12/04/19 15:19 37.1 C 55 L 18 133/67 90 Laboratory Results noted and reviewed
[2019-12-05] MEDS: LEVOTHYROXINE SODIUM 50 MCG TABLET PO SCH (05:44)
[2019-12-05] MEDS: CHOLECALCIFEROL 1,000 UNITS 25 MCG TAB PO SCH (08:23)
[2019-12-05] MEDS: ASPIRIN 81 MG ECTAB PO SCH (08:23)
[2019-12-05] MEDS: METOPROLOL TARTRATE 25 MG TAB PO SCH (08:24)
[2019-12-05] MEDS: THEOPHYLLINE 400 MG EXTENDED REL TAB PO SCH (08:24)
[2019-12-05] MEDS: PANTOprazole 40 MG TAB PO SCH (08:24)
[2019-12-05] MEDS: CYANOCOBALAMIN 500 MCG TABLET (VITAMIN B-12) PO SCH (08:25)
[2019-12-05] MEDS: INSULIN ASPART 100 UNITS/ML 3 ML PEN SC SCH ×4 (08:30→20:26)
[2019-12-05] MEDS ORDERED: AMLODIPINE BESYLATE 5 MG TAB PO ONE (11:00)
--- NOTE | 2019-12-05 11:37 | Hospitalist Progress Note ---
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 - Brain MRI: no acute CVA Neurologist consulte noted, Continue ASA - Urine culture 11/30/19 done in [facility]: (+) Klebsiella, sensitive to Ceftriaxone Repeat Urine culture: negative so far Blood cultures: negative so far Change to po cephalosporins based on sensitivities Altered mental status appear to have resolved Awaiting placement to SNF Paroxysmal atrial fibrillation: Currently rate and rhythm controlled Continue Metoprolol 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: Prior to previous admission, patient was on metformin daily This was held secondary to question of hypoglycemia For now we will not order any Lantus or oral agents We will continue to manage the patient with sliding scale insulin with NovoLog with BSG's ACHS Most recent hemoglobin A1c is 5.8 on 11/23/2019 Correction scale of 1 40-1 84 BSG, correction factor of 20, carbohydrate replacement for 1 unit of insulin for every 17 g of carbohydrate Allow for tolerance with hyperglycemia secondary to age Good glycemic control Dyslipidemia: Continue atorvastatin Hypothyroidism: Continue levothyroxine Most recent TSH was 11/23/2019 and was 3.98 Hypertension BP has been poorly controlled Start po amlodipine and monitor DVT prophylaxis: QUINCY hurt SCDs Disposition SNF placement in process Admission and Anticipated Discharge Date Admission Date: December 02, 2019 Subjective Patient seen and examined Patient denied any complaints today Denied any pain or any symptoms Physical Exam Constitutional: no acute distress Elderly Eyes: PERRL, conjunctivae normal, anicteric sclerae ENMT: external ear and nose normal, oropharynx normal Respiratory: normal respiratory effort, lungs clear to auscultation Cardiovascular: Rate/Rhythm: regular rate and regular rhythm Extremities: no pedal edema S1 S2. Gastrointestinal (Abdomen): normal bowel sounds, soft, nontender, no hepatosplenomegaly Neurologic: PERRL, EOMI, accommodation nl, no face palsy, no dysarthria Psychiatric: AOx2 (person, place), month and year. Euthymic affect Results & Data Results & Data ([facility]) Vital Signs (Past 12 Hours) Vital Signs Temp Pulse Pulse Resp BP BP Pulse Ox 12/05/19 07:56 36.9 C 73 18 181/81 H 92 12/05/19 07:32 66 12/05/19 04:00 36.9 C 85 18 149/82 H 92 12/05/19 00:09 71 Laboratory Results Laboratory Results - last 24 hr 12/04/19 12/04/19 12/05/19 16:35 20:06 07:45 POC Glucose 121 H 153 H 116 H
[2019-12-05] MEDS: TRAZODONE HCL 100 MG TAB PO SCH (20:22)
[2019-12-05] MEDS: ATORVASTATIN 20 MG TAB PO SCH (20:22)
[2019-12-05] MEDS: ROPINIROLE HCL 0.25 MG TABLET PO SCH (20:22)
[2019-12-05] MEDS: CEFDINIR 300 MG CAP PO SCH (20:22)
[2019-12-06] MEDS: LEVOTHYROXINE SODIUM 50 MCG TABLET PO SCH (06:06)
[2019-12-06] MEDS ORDERED: AMLODIPINE BESYLATE 5 MG TAB PO SCH ×3 (09:00)
[2019-12-06] MEDS: INSULIN ASPART 100 UNITS/ML 3 ML PEN SC SCH ×2 (09:15→12:57)
--- NOTE | 2019-12-06 10:06 | Hospitalist Progress Note ---
Date of Service December 06, 2019 Assessment & Plan (1) Acute metabolic encephalopathy: Metabolic encephalopathy secondary to possible UTI, POA in the Setting of Possible Underlying Vascular Dementia - Brain MRI: no acute CVA Neurologist consult noted, Continue ASA - Urine culture 11/30/19 done in [facility]: (+) Klebsiella, sensitive to Ceftriaxone Repeat Urine culture: negative Blood cultures: negative Change to po cefdinir to complete treatment Altered mental status appear to have resolved Awaiting placement to SNF Paroxysmal atrial fibrillation: Currently rate and rhythm controlled Continue Metoprolol 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: Prior to previous admission, patient was on metformin daily This was held secondary to question of hypoglycemia For now we will not order any Lantus or oral agents We will continue to manage the patient with sliding scale insulin with NovoLog with BSG's ACHS Most recent hemoglobin A1c is 5.8 on 11/23/2019 Correction scale of 1 40-1 84 BSG, correction factor of 20, carbohydrate replacement for 1 unit of insulin for every 17 g of carbohydrate Allow for tolerance with hyperglycemia secondary to age Good glycemic control Dyslipidemia: Continue atorvastatin Hypothyroidism: Continue levothyroxine Most recent TSH was 11/23/2019 and was 3.98 Hypertension BP has been poorly controlled Was started on po amlodipine 10mg yesterday Plan to discharge on this DVT prophylaxis: QUINCY hurt SCDs Disposition Awaiting SNF placement Admission and Anticipated Discharge Date Admission Date: December 02, 2019 Subjective Patient seen and examined. Was drowsy but arousable. Per RN, patient did not get much sleep last night as her room mate was making noise. Patient denied any complaints Physical Exam Constitutional: no acute distress Eyes: PERRL, conjunctivae normal, anicteric sclerae ENMT: external ear and nose normal, oropharynx normal Respiratory: normal respiratory effort, lungs clear to auscultation Cardiovascular: Rate/Rhythm: regular rate and regular rhythm Extremities: no pedal edema Gastrointestinal (Abdomen): normal bowel sounds, soft, nontender, no hepatosplenomegaly Neurologic: PERRL, EOMI, accommodation nl, no face palsy, no dysarthria Drowsy but arousable. AOX2 Results & Data Results & Data ([facility]) Vital Signs (Past 12 Hours) Vital Signs Temp Pulse Pulse Resp BP BP Pulse Ox 12/06/19 07:32 77 12/06/19 07:00 36.3 C L 82 18 169/83 H 91 12/06/19 05:40 83 12/06/19 04:00 36.8 C 91 H 18 139/80 92 12/05/19 23:05 36.6 C 89 18 139/72 90 Laboratory Results Laboratory Results - last 24 hr 12/05/19 12/05/19 12/05/19 11:49 12:00 12:00 POC Glucose 113 H COVID-19 Eval Order Covid19 IDNow [facility] SARS-CoV-2, RNA, NAAT NEGATIVE 12/05/19 12/05/19 12/06/19 16:50 20:12 07:34 POC Glucose 126 H 121 H 120 H COVID-19 Eval Order SARS-CoV-2, RNA, NAAT
[2019-12-06] MEDS: CYANOCOBALAMIN 500 MCG TABLET (VITAMIN B-12) PO SCH (10:27)
[2019-12-06] MEDS: ASPIRIN 81 MG ECTAB PO SCH (10:27)
[2019-12-06] MEDS: PANTOprazole 40 MG TAB PO SCH (10:27)
[2019-12-06] MEDS: CHOLECALCIFEROL 1,000 UNITS 25 MCG TAB PO SCH (10:27)
[2019-12-06] MEDS: THEOPHYLLINE 400 MG EXTENDED REL TAB PO SCH (10:28)
[2019-12-06] MEDS: CEFDINIR 300 MG CAP PO SCH (10:28)
[2019-12-06] MEDS: METOPROLOL TARTRATE 25 MG TAB PO SCH (10:29)
--- NOTE | 2019-12-06 11:29 | Discharge Summary ---
Date of Service December 06, 2019 Admission HPI Per Admitting Provider Attending: Dr. Ozuna This is an 89-year-old female that lives with her son and [id number] at home. The patient has a past medical history including diabetes mellitus type 2, hypothyroidism, hyperlipidemia, chronic kidney disease stage III, asthma, allergic rhinitis, GERD, hypertension, paroxysmal SVT, PAF, iron deficiency anemia, restless leg syndrome, osteoarthritis, history of TIA, history of GI bleeds, history of left-sided weakness. The patient is seen in the emergency department in room C for with her son. The patient is extremely hard of hearing and the son is relied upon for accurate h istory. He states that this morning the patient was up and had a fall. EMS was called. They refused transport to the hospital that time. Later the patient was found to be wandering around in the front yard with her walker. She seemed to be confused with altered mental status. The son then again called EMS who transported her to the emergency room for evaluation. On arrival to the emergency department, a stroke alert was called. By the time the patient was seen, there were no significant acute deficits. CT of the head, CTA of the head, CTA of the neck, and brain MRI were all completed with no acute findings. On examination the patient was found to be hard of hearing but otherwise cooperative. Some gaps had to be filled in by her son. She is very pleasant, noncombative, and very cooperative. She denies current headache but states that she had a headache in the middle of the night. She has chronic back pain which she states is consistent with typical back pain. This is confirmed by her son. She has no blurred vision or double vision. Hearing loss is chronic. She has no shortness of breath, nausea, vomiting, new tremors, evidence of acute neurological deficit. The patient has no other acute complaints. She is a lifelong non-smoker She is a lifelong non-alcohol user They have 1 dog at home which is been in the house for several years The patient has no other exposures at home and denies occupational exposure CODE STATUS was discussed and patient has a power of erisa attorney as well as living will it was notarized in 1991. In discussion with the son, we will honor the living will. Inasmuch as this is 32 years old, son will discuss with patient after she is recovered. Admission Exam Per Admitting Provider GENERAL : No acute distress. Hard of hearing EYES: No icterus, gaze conjugate. Pupils equal round and reactive to light NOSE: No evidence of epistaxis. MOUTH: No lesions or candidiasis. No teeth are present. No dentures are present. NECK: Supple LUNGS: CTA B/L, no wheezes, rales or rhonchi HEART: Regular, rate controlled in the 70s ABDOMEN: Soft, NT, ND, BS Present EXTREMITIES: No LE edema, pedal pulses intact NEURO: A&OX3. Pupils equal round reactive to light. Tongue is midline. There is no facial droop. Patient has questionable weakness to the left side. On examination patient appears to be appropriate strength to bilateral upper and lower extremities. Cerebellar function intact with [id number] and rapid alternating movements. [id number]-[id number]-fbly is appropriate bilaterally. Toes are downgoing bilaterally. Patient is negative for Homans sign. Principal Diagnosis Acute metabolic encephalopathy Urinary tract infection Discharge Exam Constitutional no acute distress Eyes PERRL, conjunctivae normal, anicteric sclerae ENMT external ear and nose normal, oropharynx normal Respiratory normal respiratory effort, lungs clear to auscultation Cardiovascular Rate/Rhythm: regular rate and regular rhythm Extremities: no pedal edema Gastrointestinal (Abdomen) normal bowel sounds, soft, nontender, no hepatosplenomegaly Neurologic PERRL, EOMI, accommodation nl, no face palsy, no dysarthria Discharge Data Allergies Allergy/AdvReac Type Severity Reaction Status Date / Time No Known Allergies Allergy Verified 12/02/19 10:50 Consultations 12/02/19 12:13 ED Decision to Admit Stat 12/02/19 14:35 Consult Case Management - Discharge Planning Routine Consult Neurology Routine Ordered Studies 12/02/19 09:23 CT angio head w con Stat No acute intracranial hemorrhage, midline shift or mass effect is present. Ventricular system is normal. Basilar cisterns are patent. There are no extra axial collections. White matter hypodensity suggests small vessel disease. There is moderate plaque within the bilateral cavernous carotids without stenosis. No central vessel occlusion is noted. There is no intraluminal thrombus. persistence of the right posterior cerebral artery is noted. IMPRESSION: 1. No central vessel occlusion. 2. Moderate plaque within the bilateral cavernous carotids without stenosis. CT angio neck with con Stat Lung apices are clear. There is no cervical lymphadenopathy. There is no cervical spine fracture. There is minimal plaque within the bilateral carotid bifurcations without stenosis. There is no intraluminal thrombus. No aneurysm within the neck is noted. No dissection is noted within the major vessels of the neck. The bilateral vertebral arteries are patent. IMPRESSION: No abnormality in carotid and vertebral vessels on contrast enhanced CT angiogram. CT head/brain wo con Stat No acute intracranial hemorrhage, midline shift or mass effect is present. Extensive white matter hypodensities unchanged and suggest small vessel disease. The ventricular system is unremarkable. The basilar cisterns are patent. No extra-axial collections are present. There are no findings to suggest acute dural sinus thrombosis or acute territorial infarct. No significant calvarial abnormalities are present. Visualized portions of the sinuses and mastoid air cells are clear. IMPRESSION: No acute intracranial findings. No change in appearance of the brain. 12/02/19 10:03 MR brain wo con Stat There are no foci of restricted diffusion to suggest acute infarct. No acute intracranial hemorrhage, midline shift or mass effect is present. Ventricular system is stable. Basilar cisterns are patent. There are no extra axial collections. Flow-voids for the major intracranial vessels are present. There is no intracranial mass on unenhanced exam. Extensive white matter T2 hyperintense foci are unchanged since MRI November 22, 2019. There is moderate atrophy. The appearance of the brain is unchanged. Calvarial signal is normal. IMPRESSION: 1. No acute intracranial findings. 2. No change in appearance of the brain since MRI of November 22, 2019. 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 - Brain MRI: no acute CVA Neurologist consult noted, Continue ASA - Urine culture 11/30/19 done in [facility]: (+) Klebsiella, sensitive to Ceftriaxone Repeat Urine culture: negative Blood cultures: negative Change to po cefdinir to complete treatment Altered mental status appear to have resolved Paroxysmal atrial fibrillation: Currently rate and rhythm controlled Continue Metoprolol 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: Prior to previous admission, patient was on metformin daily This was held secondary to question of hypoglycemia Blood glucose was monitored while inpatient and was well controlled with diet for most part Most recent hemoglobin A1c is 5.8 on 11/23/2019 Dyslipidemia: Continue atorvastatin Hypothyroidism: Continue levothyroxine Most recent TSH was 11/23/2019 and was 3.98 Hypertension BP has been poorly controlled Was started on po amlodipine 10mg yesterday Discharge on this and follow up with PCP Total Time Total Time Spent Total Time Spent (In Minutes): 45 Total Time Includes: Examination of the Patient, Discharge Planning and Medication Reconciliation Discharge Plan Discharge Items Patient Disposition: Transfer [facility] Reason For Visit: AMS Discharge Diagnosis: Acute metabolic encephalopathy Urinary Tract infection Hypertension Activity: As commented below Activity Comment: Per Physical therapist instructions Non-emergency contact: Primary Care Provider Call non-emergency contact if: you have any medication questions and your symptoms worsen Follow-up/Referrals: Dulce Maria Quintero DO [Primary Care Provider] - Diet: Heart Healthy Addtl Attending Provider Instructions: Ms Crawford. You were brought to the hospital due to altered mental status. You had a work up for stroke which was negative. You had a urinary tract infection from your recent outpatient urine tests. You were started on antibiotics. Your mental status returned to baseline. You are being discharged to a [facility] facility for rehab. Please take the oral antibiotics for another 2 days to complete treatment. You were also started on an antihypertensive medication (amlodipine) for better blood pressure control. Please follow up with your Primary Doctor. It was a pleasure taking care of you. Pending Studies at Discharge: No Stand-Alone Forms: My [facility] Skilled Items Patient informed of condition?: Yes DNR: No (Ok with cardiac defibrillation but no intubation/ventilator) Discharge Level of Care: Skilled Communicable Disease: No Discharge Prognosis: Improving Lines: None Urinary Catheter: No Medications and DC Order Prescriptions: New amlodipine [Norvasc] 5 mg Tablet 10 mg PO QAM 30 Days Qty: 60 RF: 0 cefdinir 300 mg Capsule 300 mg PO Q12 2 Days Qty: 4 RF: 0 Continued atorvastatin 20 mg tablet 20 mg PO HS RF: 0 theophylline 400 mg tablet extended release 24 hr 200 mg PO DAILY RF: 0 levothyroxine 50 mcg tablet 50 mcg PO DAILY RF: 0 loperamide 2 mg Capsule 2 mg PO Q8H PRN (Reason: Loose Stool) RF: 0 Vitron-C 65 mg iron- 125 mg Tablet,Delayed Release (Dr/Ec) 1 tab PO DAILY RF: 0 trazodone 100 mg Tablet 100 mg PO QPM RF: 0 ropinirole [Requip] 0.25 mg Tablet 0.5 mg PO QPM RF: 0 omeprazole 40 mg capsule,delayed release(DR/EC) 40 mg PO DAILY RF: 0 metoprolol tartrate 25 mg tablet 12.5 mg PO DAILY RF: 0 cyanocobalamin (vitamin B-12) [Vitamin B-12] 1,000 mcg Tablet 1,000 mcg PO DAILY RF: 0 cholecalciferol (vitamin D3) [Vitamin D3] 25 mcg (1,000 unit) Capsule 25 mcg PO DAILY RF: 0 (DME) Wheeled Walker Misc See Rx Instructions .ROUTE .MEDSUPPLY Qty: 1 RF: 0 aspirin [Ecotrin Low Strength] 81 mg tablet,delayed release (DR/EC) 81 mg PO DAILY Qty: 30 RF: 12 Discharge Orders: Discharge Order (Routine); Ordered 12/06/19 Ordered By: Sasha Packer Admission Data Admit Date/Time: 12/02/19 13:30 Attending Provider: Sasha Packer I. Admit Provider: Umesh Ozuna Primary Care Provider: Dulce Maria Quintero Other Providers: Umesh Ozuna ; Mike Dixon ; Kayla Viramontes ; Carlos Espinosa Other Interventions: Discharge Summary Assessment (RN) Last Done: 12/06/19 13:24
== END 2019-12-06 14:34 | DRG 689 ==
LOC: ED 09:22 → 2N 13:30 → SUATTDRO 13:30 → 2N 13:58

== ENCOUNTER 2022-05-19 13:38 | Inpatient (IN) ==
[2022-05-19] MEDS ORDERED: CEFEPIME 2,000 MG/20 ML VIAL IV STA (13:48)
[2022-05-19] MEDS ORDERED: ONDANSETRON INJ 2 MG/ML 2 ML VIAL IV STA (13:48)
[2022-05-19] MEDS ORDERED: ACETAMINOPHEN 1,000 MG/100 ML VIAL IV STA (13:48)
[2022-05-19] MEDS ORDERED: SODIUM CHLORIDE 0.9% 1000ML 1,000 ML IV SCH ×2 (14:00→19:38)
--- NOTE | 2022-05-19 14:04 | Emergency Department Note ---
Impression & Plan Altered mental status, Fever, Weakness, Hypomagnesemia ED Provider Note NAME: LONDON WORTHY AGE: 89 SEX: F : 1930 ARRIVES VIA: Walk-In INFORMANT: [Patient][son, nursing] ED PROVIDER(S): [Alexis Hall MD] CHIEF COMPLAINT: Weakness HISTORY OF PRESENT ILLNESS: The patient is an 89-year-old female presents with about 24 hours of weakness. The patient had a hard time getting around, her legs would give out. In addition, last evening, she had a hard time finding her words and speaking. All her symptoms continued today. As per the son, there has been no cough or congestion. She has not complained of pain. No fall. Because of the ongoing confusion, the patient was brought for evaluation. As per our nursing staff, patient had some loose stool in her underwear when she arrived. Son states that there has been no diarrhea at home. PMHx/PSHx: See Below SOCIAL HISTORY: See Below. PHYSICAL EXAM: GENERAL: Patient is in no acute distress. HEENT: No acute trauma, normocephalic atraumatic, mucous membranes moist, no nasal congestion. NECK: No stridor, no adenopathy, no meningismus, trachea is midline. LUNGS: Crackles heard at the left anterior lung, the right lung is clear, no w heezing or respiratory distress. HEART: Without murmurs gallops or rubs, regular rate and rhythm. ABDOMEN: Soft, nontender, bowel sounds positive, no peritonitis. EXTREMITIES: No cyanosis or edema, full range of motion of all the joints without pain or difficulty, no signs for acute trauma. NEUROLOGIC: Awake but confused, moves all extremities. No speech slur noted. SKIN: No rash, no jaundice, no diaphoresis. DIFFERENTIAL DIAGNOSIS: Bacteremia or sepsis, renal failure, UTI, pneumonia, stroke, anemia, COVID-19, influenza, viral illness, among others. EMERGENCY DEPARTMENT COURSE/PROCEDURES: Prior/Outside records reviewed: Last discharge summary. ECG per my interpretation: Indication was weakness. The ECG shows a normal sinus rhythm with some significant artifact. The rate is 86. There appears to be a left bundle branch block. No obvious ST elevation, no PVCs. The QTc is 485. Continuous Cardiac Monitoring per my interpretation: An order was placed for continuous cardiac monitoring. The monitor shows a rate of 93 with normal sinus rhythm. Critical Care Note: I have personally spent 54 minutes of critical care time in the direct management of this patient. This includes bedside care, interpretation of diagnostic studies, and testing, discussion with consultants, patient, and family members, and other required patient management activities. This 54 minutes is in excess of all separately billable procedures. MEDICAL DECISION MAKING: There is no leukocytosis or concerning anemia. There is a normal platelet count. No coagulopathy. Potassium and magnesium were both somewhat low, no renal failure. Lactic acid level was not elevated making severe sepsis less likely. No concerning liver enzyme elevation. Procalcitonin level was not elevated making a bacterial infection a bit less likely. There was a normal sinus rhythm on her ECG, no obvious ischemia. Cardiac enzyme testing x1 is not consistent with acute cardiac injury. Urinalysis did not show findings of infection. COVID, influenza and RSV test were negative. Chest film showed some chronic change per my review, no pneumonia or pneumothorax. Brain CT showed no acute bleed or mass effect. Abdominal and pelvis CT did not show any acute surgical process, no diverticulitis or colitis. On exam, the patient was diffusely weak, she was febrile, she was confused. The patient was aggressively managed, infection was a concern, stroke was a concern. Of note, the patient was not a candidate for TNK as her symptoms had started ye . A stroke alert was not called. Patient received IV saline, 1.5 L. She was given IV Zofran, IV magnesium, IV cefepime, IV Tylenol. The patient seems to be improving with the treatment provided here in the ED. Further work-up and care in the hospital is required. At this point, the cause for the fever is unclear, the cause for the weakness and her presentation is not completely clear although certainly, with the fever, infection is potentially the cause for her decline. I did speak with the family and the patient, the case aide was contacted. The on-call hospitalist was consulted. DISPOSITION: The patient's presentation and findings warrant a hospital stay and further work-up. Past Med/Surg History Medical History Asthma Diabetes mellitus type 2 with complications Diverticulitis Dyslipidemia GI bleed Hemorrhoid Hypothyroidism PSVT (paroxysmal supraventricular tachycardia) Stroke Surgical History (Updated 05/19/22 @ 16:11 by Michaela Crow PA-C) History of left knee replacement Hx of colonoscopy Hx of esophagogastroduodenoscopy Hx of hysterectomy Family History (Updated 12/02/19 @ 13:32 by Alexis Armendariz PA-C) Other Family history non-contributory Social History Smoking Status: Never smoker Hx Alcohol Use: No Hx Substance Use: No Preferred Language: Urdu Communication Ability: Effective Histology Specialist Required: No Beliefs That Will Affect Care: None marital status: / Current Living Situation: Family Current Living Situation Comment: son and [id number] Feels Safe at Home: Yes Assistive Devices: Walker Allergies Allergies Allergy/AdvReac Type Severity Reaction Status Date / Time No Known Allergies Allergy Verified 12/02/19 10:50 Home Meds Home Medications Medication Instructions Recorded Confirmed ropinirole 0.25 mg tablet (Requip) 0.5 mg PO QPM 02/19/18 05/19/22 trazodone 100 mg tablet 100 mg PO QPM 02/19/18 05/19/22 atorvastatin 20 mg tablet 20 mg PO HS 07/06/19 05/19/22 cholecalciferol (vitamin D3) 25 25 mcg PO DAILY 11/22/19 05/19/22 mcg (1,000 unit) capsule (Vitamin D3) cyanocobalamin (vitamin B-12) 1,000 mcg PO DAILY 11/22/19 05/19/22 1,000 mcg tablet (Vitamin B-12) omeprazole 40 mg capsule,delayed 40 mg PO DAILY 11/22/19 05/19/22 release amlodipine 2.5 mg tablet 2.5 mg PO DAILY 05/19/22 05/19/22 levothyroxine 75 mcg tablet 75 mcg PO DAILY 05/19/22 05/19/22 metoprolol succinate 25 mg 25 mg PO DAILY 05/19/22 05/19/22 tablet,extended release 24 hr Previous Rx's Medication Instructions Recorded Wheeled Walker #1 ea 11/23/19 aspirin 81 mg tablet,delayed 81 mg PO DAILY #30 tabs 11/23/19 release (Ecotrin Low Strength) Results & Data (ED) Vital Signs Vital Signs - 24 hr 05/19/22 13:41 05/19/22 14:01 05/19/22 14:03 Temperature 38.2 C H Temperature Source Temporal Artery Scan Pulse Rate 99 H 93 H Respiratory Rate 18 Blood Pressure 128/74 Blood Pressure Mean 92 Pulse Oximetry 89 L 88 L Oxygen Delivery Method Room Air Nasal Cannula Oxygen Flow Rate 0 Sepsis Recent Fever Within 48 Hours No Sepsis New/Unexplained Change in Mental Status No Sepsis Action Taken by Nursing No Action Required Oxygen Flow Rate - Titration 2 Pulse Oximetry Post Tiitration 97 05/19/22 14:00 05/19/22 14:30 05/19/22 15:00 Temperature Temperature Source Pulse Rate 93 H 89 83 Respiratory Rate 32 H 20 25 H Blood Pressure 130/83 124/59 L 98/56 L Blood Pressure Mean 98 80 70 Pulse Oximetry 97 96 96 Oxygen Delivery Method Nasal Cannula Nasal Cannula Nasal Cannula Oxygen Flow Rate 2 2 2 Sepsis Recent Fever Within 48 Hours Sepsis New/Unexplained Change in Mental Status Sepsis Action Taken by Nursing Oxygen Flow Rate - Titration Pulse Oximetry Post Tiitration 05/19/22 15:30 05/19/22 16:01 05/19/22 16:30 Temperature Temperature Source Pulse Rate 78 72 75 Respiratory Rate 20 25 H 22 Blood Pressure 115/59 L 126/67 106/50 L Blood Pressure Mean 77 86 68 Pulse Oximetry 96 97 97 Oxygen Delivery Method Nasal Cannula Nasal Cannula Nasal Cannula Oxygen Flow Rate 2 2 2 Sepsis Recent Fever Within 48 Hours Sepsis New/Unexplained Change in Mental Status Sepsis Action Taken by Nursing Oxygen Flow Rate - Titration Pulse Oximetry Post Tiitration 05/19/22 17:00 05/19/22 17:30 Temperature Temperature Source Pulse Rate 74 75 Respiratory Rate 21 18 Blood Pressure 112/50 L 141/49 H Blood Pressure Mean 70 79 Pulse Oximetry 97 98 Oxygen Delivery Method Nasal Cannula Nasal Cannula Oxygen Flow Rate 2 2 Sepsis Recent Fever Within 48 Hours Sepsis New/Unexplained Change in Mental Status Sepsis Action Taken by Nursing Oxygen Flow Rate - Titration Pulse Oximetry Post Tiitration Home Medications Current Medication List: was personally reviewed by me Laboratory Data Attestation: I reviewed the patient's lab results. 05/19/22 14:03 05/19/22 14:03 Lab Results 05/19/22 05/19/22 05/19/22 Range/Units 13:56 13:56 14:03 WBC 6.03 (4.8-10.8) K/ul RBC 3.88 L (4.20-5.40) M/uL Hgb 12.6 (12.0-16.0) g/dl Hct 37.3 (37.0-47.0) % MCV 96.1 (80.0-100.0) fL MCH 32.5 (25.0-34.0) pg MCHC 33.8 (32.0-36.0) g/dL RDW Std Deviation 48.9 H (36.4-46.3) fL RDW Coeff of Caroline 13.8 (11.5-14.5) % Plt Count 161 (130-400) K/uL MPV 9.7 (9.4-12.4) fL Immature Gran % (Auto) 0.7 % Neut % (Auto) 90.2 % Lymph % (Auto) 6.0 % [place] % (Auto) 2.8 % Eos % (Auto) 0.0 % Baso % (Auto) 0.3 % Neut # (Auto) 5.44 (1.40-6.50) K/uL Lymph # (Auto) 0.36 L (1.2-3.4) K/uL [place] # (Auto) 0.17 (0.11-0.59) K/uL Eos # (Auto) 0.00 (0-0.50) K/uL Baso # (Auto) 0.02 (0-0.2) K/uL Immature Gran # (Auto) 0.04 (0.01-0.20) K/uL RBC Morphology Unremarkable PT (9.0-12.0) Seconds INR (0.9-1.1) APTT (21.0-31.0) Seconds PTT Ratio Sodium (136-145) mmol/L Potassium (3.5-5.1) mmol/L Chloride (98-107) mmol/L Carbon Dioxide (21-32) mmol/L Anion Gap (3-11) BUN (6-23) mg/dl Creatinine (0.6-1.2) mg/dl Est Cr Clr Drug Dosing Est GFR ( Amer) ml/min Est GFR (Non-Af Amer) ml/min BUN/Creatinine Ratio (10-20) Glucose (70-99(Fasting)) mg/dl Lactate (0.4-2.0) mmol/L Calcium (8.5-10.1) mg/dl Magnesium (1.7-2.4) mg/dl Total Bilirubin (0.2-1.0) mg/dl Direct Bilirubin (0-0.2) mg/dl AST (13-39) U/L ALT (7-52) U/L Alkaline Phosphatase (34-104) U/L Troponin I High Sens (0-14) pg/ml Total Protein (6.0-8.3) gm/dl Albumin (3.4-5.0) gm/dl Procalcitonin (0-0.5) ng/ml Urine Color Dark Yellow Urine Appearance Clear (Clear) Urine pH 5.0 (4.5-7.5) Ur Specific [place] 1.023 (1.000-1.030) Urine Protein 1+ H (Negative) Urine Glucose (UA) Negative (Negative) Urine Ketones Negative (Negative) Urine Blood Negative (Negative) Urine Nitrite Negative (Negative) Urine Bilirubin Negative (Negative) Urine Urobilinogen Negative (Negative) Ur Leukocyte Esterase Negative (Negative) Urine WBC (Auto) 1-5 (0-5) /hpf Urine RBC (Auto) 0-4 (0-4) /hpf U Hyaline Cast (Auto) 1-5 (0-5) /lpf U Epithel Cells (Auto) >30 H (0-5) /lpf Urine Bacteria (Auto) Negative (Negative) SARS-CoV-2 (PCR) NEGATIVE (Negative) Influenza Type A (PCR) Negative (Neg) Influenza Type B (PCR) Negative (Neg) RSV (RT-PCR) Negative (Neg) 05/19/22 05/19/22 05/19/22 Range/Units 14:03 14:03 14:03 WBC (4.8-10.8) K/ul RBC (4.20-5.40) M/uL Hgb (12.0-16.0) g/dl Hct (37.0-47.0) % MCV (80.0-100.0) fL MCH (25.0-34.0) pg MCHC (32.0-36.0) g/dL RDW Std Deviation (36.4-46.3) fL RDW Coeff of Caroline (11.5-14.5) % Plt Count (130-400) K/uL MPV (9.4-12.4) fL Immature Gran % (Auto) % Neut % (Auto) % Lymph % (Auto) % [place] % (Auto) % Eos % (Auto) % Baso % (Auto) % Neut # (Auto) (1.40-6.50) K/uL Lymph # (Auto) (1.2-3.4) K/uL [place] # (Auto) (0.11-0.59) K/uL Eos # (Auto) (0-0.50) K/uL Baso # (Auto) (0-0.2) K/uL Immature Gran # (Auto) (0.01-0.20) K/uL RBC Morphology PT 11.4 (9.0-12.0) Seconds INR 1.1 (0.9-1.1) APTT 27.4 (21.0-31.0) Seconds PTT Ratio 1.0 Sodium 133 L (136-145) mmol/L Potassium 3.4 L (3.5-5.1) mmol/L Chloride 94 L (98-107) mmol/L Carbon Dioxide 30 (21-32) mmol/L Anion Gap 9 (3-11) BUN 15 (6-23) mg/dl Creatinine 0.77 (0.6-1.2) mg/dl Est Cr Clr Drug Dosing Not Reportable Est GFR ( Amer) 79.3 ml/min Est GFR (Non-Af Amer) 68.5 ml/min BUN/Creatinine Ratio 19.5 (10-20) Glucose 192 H (70-99(Fasting)) mg/dl Lactate 1.7 (0.4-2.0) mmol/L Calcium 8.4 L (8.5-10.1) mg/dl Magnesium 1.6 L (1.7-2.4) mg/dl Total Bilirubin 1.0 (0.2-1.0) mg/dl Direct Bilirubin 0.3 H (0-0.2) mg/dl AST 30 (13-39) U/L ALT 18 (7-52) U/L Alkaline Phosphatase 65 (34-104) U/L Troponin I High Sens 11.0 (0-14) pg/ml Total Protein 7.4 (6.0-8.3) gm/dl Albumin 3.9 (3.4-5.0) gm/dl Procalcitonin (0-0.5) ng/ml Urine Color Urine Appearance (Clear) Urine pH (4.5-7.5) Ur Specific [place] (1.000-1.030) Urine Protein (Negative) Urine Glucose (UA) (Negative) Urine Ketones (Negative) Urine Blood (Negative) Urine Nitrite (Negative) Urine Bilirubin (Negative) Urine Urobilinogen (Negative) Ur Leukocyte Esterase (Negative) Urine WBC (Auto) (0-5) /hpf Urine RBC (Auto) (0-4) /hpf U Hyaline Cast (Auto) (0-5) /lpf U Epithel Cells (Auto) (0-5) /lpf Urine Bacteria (Auto) (Negative) SARS-CoV-2 (PCR) (Negative) Influenza Type A (PCR) (Neg) Influenza Type B (PCR) (Neg) RSV (RT-PCR) (Neg) 05/19/22 Range/Units 14:03 WBC (4.8-10.8) K/ul RBC (4.20-5.40) M/uL Hgb (12.0-16.0) g/dl Hct (37.0-47.0) % MCV (80.0-100.0) fL MCH (25.0-34.0) pg MCHC (32.0-36.0) g/dL RDW Std Deviation (36.4-46.3) fL RDW Coeff of Caroline (11.5-14.5) % Plt Count (130-400) K/uL MPV (9.4-12.4) fL Immature Gran % (Auto) % Neut % (Auto) % Lymph % (Auto) % [place] % (Auto) % Eos % (Auto) % Baso % (Auto) % Neut # (Auto) (1.40-6.50) K/uL Lymph # (Auto) (1.2-3.4) K/uL [place] # (Auto) (0.11-0.59) K/uL Eos # (Auto) (0-0.50) K/uL Baso # (Auto) (0-0.2) K/uL Immature Gran # (Auto) (0.01-0.20) K/uL RBC Morphology PT (9.0-12.0) Seconds INR (0.9-1.1) APTT (21.0-31.0) Seconds PTT Ratio Sodium (136-145) mmol/L Potassium (3.5-5.1) mmol/L Chloride (98-107) mmol/L Carbon Dioxide (21-32) mmol/L Anion Gap (3-11) BUN (6-23) mg/dl Creatinine (0.6-1.2) mg/dl Est Cr Clr Drug Dosing Est GFR ( Amer) ml/min Est GFR (Non-Af Amer) ml/min BUN/Creatinine Ratio (10-20) Glucose (70-99(Fasting)) mg/dl Lactate (0.4-2.0) mmol/L Calcium (8.5-10.1) mg/dl Magnesium (1.7-2.4) mg/dl Total Bilirubin (0.2-1.0) mg/dl Direct Bilirubin (0-0.2) mg/dl AST (13-39) U/L ALT (7-52) U/L Alkaline Phosphatase (34-104) U/L Troponin I High Sens (0-14) pg/ml Total Protein (6.0-8.3) gm/dl Albumin (3.4-5.0) gm/dl Procalcitonin 0.39 (0-0.5) ng/ml Urine Color Urine Appearance (Clear) Urine pH (4.5-7.5) Ur Specific [place] (1.000-1.030) Urine Protein (Negative) Urine Glucose (UA) (Negative) Urine Ketones (Negative) Urine Blood (Negative) Urine Nitrite (Negative) Urine Bilirubin (Negative) Urine Urobilinogen (Negative) Ur Leukocyte Esterase (Negative) Urine WBC (Auto) (0-5) /hpf Urine RBC (Auto) (0-4) /hpf U Hyaline Cast (Auto) (0-5) /lpf U Epithel Cells (Auto) (0-5) /lpf Urine Bacteria (Auto) (Negative) SARS-CoV-2 (PCR) (Negative) Influenza Type A (PCR) (Neg) Influenza Type B (PCR) (Neg) RSV (RT-PCR) (Neg) Administered Medications Discontinued Medications Aspirin (Aspirin Chew 324 Mg) 324 mg PO NOW STA Stop: 05/19/22 16:58 Last Admin: 05/19/22 17:22 Dose: 324 mg Documented By: FARZANEH Cefepime HCl (Maxipime) 2,000 mg in 20 mls @ 5 mls/min IV NOW STA; Protocol Stop: 05/19/22 13:51 Last Admin: 05/19/22 14:16 Dose: 5 mls/min Documented By: FARZANEH Acetaminophen (Ofirmev) 1,000 mg in 100 mls @ 400 mls/hr IV NOW STA Stop: 05/19/22 14:02 Last Infusion: 05/19/22 14:50 Dose: 0 mls/hr Documented By: Admin: 05/19/22 14:16 Dose: 400 mls/hr Documented By: FARZANEH Sodium Chloride (Nss 1000ml) 1,000 mls @ 999 mls/hr IV .Q1H1M FANY Stop: 05/19/22 15:00 Last Infusion: 05/19/22 15:30 Dose: 0 mls/hr Documented By: Admin: 05/19/22 14:16 Dose: 999 mls/hr Documented By: FARZANEH Magnesium Sulfate/Dextrose (Magnesium Sulfate / D5w) 1 gm in 100 mls @ 100 mls/hr IV NOW STA Stop: 05/19/22 15:56 Last Infusion: 05/19/22 17:27 Dose: 0 mls/hr Documented By: Infusion: 05/19/22 15:29 Dose: 100 mls/hr Documented By: Infusion: 05/19/22 15:07 Dose: 0 mls/hr Documented By: Admin: 05/19/22 15:03 Dose: 100 mls/hr Documented By: FARZANEH Sodium Chloride (Nss 1000ml) 500 mls @ 999 mls/hr IV .Q31M ONE Stop: 05/19/22 15:48 Last Admin: 05/19/22 17:22 Dose: 999 mls/hr Documented By: FARZANEH Ioversol (Optiray 350 100ml) 88 ml IV ONCE ONE Stop: 05/19/22 15:59 Last Admin: 05/19/22 15:51 Dose: 88 ml Documented By: SYLVAIN Ondansetron HCl (Ondansetron Inj 2 Mg/Ml 2 Ml Vial) 4 mg IV NOW STA Stop: 05/19/22 13:49 Last Admin: 05/19/22 14:16 Dose: 4 mg Documented By: [facility] Potassium Chloride (Potassium Chloride Crtab 20 Meq Tabcr) 40 meq PO NOW STA Stop: 05/19/22 16:34 Last Admin: 05/19/22 17:21 Dose: 40 meq Documented By: [facility] Imaging Data Radiologist's Impression: Chest X-Ray 05/19/22 13:48 XR chest 1V portable HISTORY: Sepsis COMPARISON: Chest 12/02/2019. FINDINGS: There are old, healed left-sided rib fractures. No focal lung consolidations to suggest a pneumonia. No evidence for pulmonary edema. There are low lung volumes. The cardiac silhouette remains mildly enlarged. There is a moderate hiatus hernia, unchanged. Calcifications again noted within the aortic knob. Stable right hilar prominence. IMPRESSION: No significant change compared to the prior study. No acute process. ACT 112: Negative or not required by law. Electronically signed by: Vamsi Arango M.D. 05/19/2022 2:[address] 05/19/22 13:58 CT SCAN OF THE BRAIN WITHOUT IV CONTRAST CLINICAL HISTORY: Delirium. Generalized weakness. COMPARISON STUDY: CT of the brain dated 12/02/2019. TECHNIQUE: Unenhanced axial CT scan of the brain is performed from the vertex to the skull base. A dose lowering technique was utilized adhering to the principles of ALARA. CT DOSE: 1277.12 mGycm FINDINGS: Brain parenchyma: There is age-related involutional change noting moderate to advanced subcortical and periventricular microangiopathic disease. There is no hemorrhage, mass effect, or evidence of acute territorial ischemia by CT criteria. Crawford-white matter differentiation is preserved. There is a small chronic lacunar infarct in the left thalamus. No extra-axial fluid collection is seen. Ventricles, sulci, cisterns: Prominent secondary to involutional change. Intracranial vasculature: There is atherosclerotic calcification of the cavernous carotid and vertebral arteries. Calvarium: Unremarkable. Sinuses and mastoids: The visualized paranasal sinuses are clear. The mastoid air cells are well pneumatized. Orbits: The bony orbits are grossly intact. There are bilateral ocular lens implants. IMPRESSION: There is no hemorrhage, mass effect, or evidence of acute territorial ischemia by CT criteria. ACT 112: Negative or not required by law. Electronically signed by: Alexis Casiano M.D. 05/19/2022 3:29 PM Abdomen/Pelvis CT 05/19/22 15:36 CT SCAN OF THE ABDOMEN AND PELVIS WITH IV CONTRAST CLINICAL HISTORY: Fever. Change in mental status. Diarrhea. COMPARISON STUDY: Abdominal CT dated 08/02/2013. TECHNIQUE: Following the IV administration of 88 cc of Optiray 350, CT scan of the abdomen and pelvis is performed from the lung bases to the proximal femora. Images are reviewed in the axial, sagittal, and coronal planes. IV contrast was administered without complication. A dose lowering technique was utilized adhering to the principles of ALARA. The examination is degraded by motion artifact. CT DOSE: 292.55 mGy.cm FINDINGS: Lung bases: The heart is enlarged and without pericardial effusion. The coronary arteries are densely calcified. Evaluation of the lung bases is compromised by motion artifact. The lung bases are grossly clear noting bibasilar scarring/atelectasis. There is a moderate to large hiatal hernia. Liver: The contrast-enhanced liver is normal in size, contour, and attenuation. There is no intrahepatic biliary ductal dilatation. The hepatic veins and portal veins are patent. Gallbladder: There are gallstones with no CT evidence of acute cholecystitis. Spleen: Normal in size and attenuation. Pancreas: A 14 mm ovoid simple cystic lesion in the distal pancreatic body on image #126 has been present dating back to 2013. 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 The pancreas is moderately atrophic and otherwise grossly unremarkable. Adrenal glands: Unremarkable. Kidneys: The contrast enhanced kidneys demonstrate mild cortical atrophy and are without hydronephrosis. The kidneys enhance symmetrically. A 2.1 cm cyst is noted on the left. Abdominal vasculature: The abdominal aorta is normal in course and caliber n oting moderate to advanced atherosclerotic calcification. Bowel: There is advanced sigmoid diverticulosis without CT evidence of acute diverticulitis. No bowel obstruction is seen. Mild fecal retention is noted throughout the colon. The appendix is well-visualized and normal. Peritoneum: There is no intraperitoneal free air or abdominal ascites. There is a small fat-containing umbilical hernia. Lymphadenopathy: None. Pelvic viscera: The bladder is decompressed around a Shaw catheter and not well evaluated. There is pericystic infiltration. Intraluminal gas is likely related to instrumentation. The uterus is surgically absent. No adnexal lesion is seen. Skeletal structures: The skeletal structures are osteopenic. There is advanced lumbosacral spondylosis. No lytic or blastic lesions are seen. IMPRESSION: 1. The bladder is decompressed a round a Shaw catheter not well evaluated. There is pericystic inflammation. Correlate with clinical findings and urinalysis for evidence of cystitis. 2. Sigmoid diverticulosis without CT evidence of acute diverticulitis. 3. Cholelithiasis. 4. Moderate to large hiatal hernia. 5. Cardiomegaly. 6. Additional findings as above. ACT 112: Negative or not required by law. Electronically signed by: Alexis Casiano M.D. 05/19/2022 4:07 PM Discharge Plan Visit Data Chief Complaint: Weakness Stated Complaint: DEHYDRATION,WEAKNESS ED Provider: Alexis Hall Discharge Problem: Altered mental status, Fever, Weakness, Hypomagnesemia Patient Disposition: Admitted As Inpatient Condition: Fair Forms Stand Alone Forms: [facility] Prescriptions Prescriptions: No Action atorvastatin 20 mg tablet 20 mg PO HS trazodone 100 mg Tablet 100 mg PO QPM ropinirole [Requip] 0.25 mg Tablet 0.5 mg PO QPM omeprazole 40 mg capsule,delayed release(DR/EC) 40 mg PO DAILY cyanocobalamin (vitamin B-12) [Vitamin B-12] 1,000 mcg Tablet 1,000 mcg PO DAILY cholecalciferol (vitamin D3) [Vitamin D3] 25 mcg (1,000 unit) Capsule 25 mcg PO DAILY (DME) [facility] See Rx Instructions .ROUTE .MEDSUPPLY Qty: 1 0RF Rx Instructions: As directed aspirin [Ecotrin Low Strength] 81 mg tablet,delayed release (DR/EC) 81 mg PO DAILY Qty: 30 12RF amlodipine 2.5 mg tablet 2.5 mg PO DAILY levothyroxine 75 mcg tablet 75 mcg PO DAILY metoprolol succinate 25 mg tablet extended release 24 hr 25 mg PO DAILY Referrals Referrals: Dulce Maria Quintero DO [Primary Care Provider] -
[2022-05-19 14:39] LABS: Hematocrit (blood only) 37.3 % (37.0-47.0); Hemoglobin 12.6 g/dl (12.0-16.0); Mean Corpuscular Hemoglobin 32.5 pg (25.0-34.0); Mean Corpuscular Hgb Conc 33.8 g/dL (32.0-36.0); Mean Corpuscular Volume 96.1 fL (80.0-100.0); Mean Platelet Volume 9.7 fL (9.4-12.4); Platelet Count 161 K/uL (130-400); RDW Coefficient of Variation 13.8 % (11.5-14.5); RDW Standard Deviation 48.9 fL (36.4-46.3); Red Blood Count 3.88 M/uL (4.20-5.40); White Blood Count 6.03 K/ul (4.8-10.8)
--- NOTE | 2022-05-19 14:47 | XRay Report ---
XR chest 1V portable HISTORY: Sepsis COMPARISON: Chest 12/02/2019. FINDINGS: There are old, healed left-sided rib fractures. No focal lung consolidations to suggest a p neumonia. No evidence for pulmonary edema. There are low lung volumes. The cardiac silhouette remains mildly enlarged. There is a moderate hiatus hernia, unchanged. Calcifications again noted within the aortic knob. Stable right hilar prominence. IMPRESSION: No significant change compared to the prior study. No acute process. ACT 112: Negative or not required by law. Electronically signed by: Vamsi Arango M.D. 05/19/2022 2:46 PM
[2022-05-19 14:53] LABS: Appearance Urine Clear (Clear); Bacteria Urine Automated Negative (Negative); Bilirubin Urine Negative (Negative); Blood Urine Negative (Negative); Color Urine Dark Yellow; Epithelial Cell Urine Auto >30 /lpf (0-5); Glucose Urine UA Negative (Negative); Ketones Urine Negative (Negative); Leukocyte Esterase Urine Negative (Negative); Nitrite Urine Negative (Negative); Protein Urine 1+ (Negative); RBC Urine Automated 0-4 /hpf (0-4); Specific Gravity Urine 1.023 (1.000-1.030); Urobilinogen Urine Negative (Negative)
[2022-05-19 14:55] LABS: Alanine Aminotransferase 18 U/L (7-52); Albumin Level 3.9 gm/dl (3.4-5.0); Alkaline Phosphatase 65 U/L (34-104); Anion Gap 9 (3-11); Aspartate Aminotransferase 30 U/L (13-39); BUN Creatinine Ratio 19.5 (10-20); Bilirubin Direct 0.3 mg/dl (0-0.2); Blood Urea Nitrogen 15 mg/dl (6-23); Calcium 8.4 mg/dl (8.5-10.1); Carbon Dioxide 30 mmol/L (21-32); Chloride 94 mmol/L (98-107); Est GFR (African American) 79.3 ml/min; Est GFR (Non-African American) 68.5 ml/min; Glucose 192 mg/dl (70-99(Fasting)); Magnesium 1.6 mg/dl (1.7-2.4); Potassium 3.4 mmol/L (3.5-5.1); Sodium 133 mmol/L (136-145); Total Protein 7.4 gm/dl (6.0-8.3)
[2022-05-19] MEDS ORDERED: MAGNESIUM SULFATE / D5W 1 GM/100 ML BAG IV STA (14:57)
[2022-05-19 15:09] LABS: INR 1.1 (0.9-1.1); Partial Thromboplastin Time 27.4 Seconds (21.0-31.0); Prothrombin Time 11.4 Seconds (9.0-12.0)
[2022-05-19 15:10] LABS: Influenza A virus by PCR Negative (Neg); Influenza B virus by PCR Negative (Neg); RSV by PCR Negative (Neg); SARS CoV2 RNA(COVID-19) Ceph NEGATIVE (Negative)
[2022-05-19 15:14] LABS: Basophils # (auto) 0.02 K/uL (0-0.2); Basophils % (auto) 0.3 %; Immature Granulocytes # (auto) 0.04 K/uL (0.01-0.20); Immature Granulocytes % (auto) 0.7 %; Lymphocytes # (auto) 0.36 K/uL (1.2-3.4); Monocytes # (auto) 0.17 K/uL (0.11-0.59); Monocytes % (auto) 2.8 %; Neutrophils # (auto) 5.44 K/uL (1.40-6.50); Neutrophils % (auto) 90.2 %; RBC Morphology Unremarkable
[2022-05-19] MEDS ORDERED: SODIUM CHLORIDE 0.9% 1000ML 500 ML IV ONE (15:18)
--- NOTE | 2022-05-19 15:30 | CT Scan Report ---
CT SCAN OF THE BRAIN WITHOUT IV CONTRAST CLINICAL HISTORY: Delirium. Generalized weakness. COMPARISON STUDY: CT of the brain dated 12/02/2019. TECHNIQUE: Unenhanced axial CT scan of the brain is performed from the vertex to the skull base. A do se lowering technique was utilized adhering to the principles of ALARA. CT DOSE: 1277.12 mGycm FINDINGS: Brain parenchyma: There is age-related involutional change noting moderate to advanced subcortical an d periventricular microangiopathic disease. There is no hemorrhage, mass effect, or evidence of acute territorial ischemia by CT criteria. Crawford-white matter differentiation is preserved. There is a smal l chronic lacunar infarct in the left thalamus. No extra-axial fluid collection is seen. Ventricles, sulci, cisterns: Prominent secondary to involutional change. Intracranial vasculature: There is atherosclerotic calcification of the cavernous carotid and vertebr al arteries. Calvarium: Unremarkable. Sinuses and mastoids: The visualized paranasal sinuses are clear. The mastoid air cells are well pneu matized. Orbits: The bony orbits are grossly intact. There are bilateral ocular lens implants. IMPRESSION: There is no hemorrhage, mass effect, or evidence of acute territorial ischemia by CT presley flynn. ACT 112: Negative or not required by law. Electronically signed by: Alexis Casiano M.D. 05/19/2022 3:29 PM
[2022-05-19] MEDS ORDERED: OPTIRAY 350 100ml IV ONE (15:58)
--- NOTE | 2022-05-19 16:08 | CT Scan Report ---
CT SCAN OF THE ABDOMEN AND PELVIS WITH IV CONTRAST CLINICAL HISTORY: Fever. Change in mental status. Diarrhea. COMPARISON STUDY: Abdominal CT dated 08/02/2013. TECHNIQUE: Following the IV administration of 88 cc of Optiray 350, CT scan of the abdomen and pelvi s is performed from the lung bases to the proximal femora. Images are reviewed in the axial, sagittal , and coronal planes. IV contrast was administered without complication. A dose lowering technique wa s utilized adhering to the principles of ALARA. The examination is degraded by motion artifact. CT DOSE: 292.55 mGy.cm FINDINGS: Lung bases: The heart is enlarged and without pericardial effusion. The coronary arteries are densely calcified. Evaluation of the lung bases is compromised by motion artifact. The lung bases are grossl y clear noting bibasilar scarring/atelectasis. There is a moderate to large hiatal hernia. Liver: The contrast-enhanced liver is normal in size, contour, and attenuation. There is no intrahepa tic biliary ductal dilatation. The hepatic veins and portal veins are patent. Gallbladder: There are gallstones with no CT evidence of acute cholecystitis. Spleen: Normal in size and attenuation. Pancreas: A 14 mm ovoid simple cystic lesion in the distal pancreatic body on image #126 has been pre sent dating back to 2013. 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 T he pancreas is moderately atrophic and otherwise grossly unremarkable. Adrenal glands: Unremarkable. Kidneys: The contrast enhanced kidneys demonstrate mild cortical atrophy and are without hydronephros is. The kidneys enhance symmetrically. A 2.1 cm cyst is noted on the left. Abdominal vasculature: The abdominal aorta is normal in course and caliber noting moderate to advance d atherosclerotic calcification. Bowel: There is advanced sigmoid diverticulosis without CT evidence of acute diverticulitis. No bowel obstruction is seen. Mild fecal retention is noted throughout the colon. The appendix is well-visua lized and normal. Peritoneum: There is no intraperitoneal free air or abdominal ascites. There is a small fat-containin g umbilical hernia. Lymphadenopathy: None. Pelvic viscera: The bladder is decompressed around a Shaw catheter and not well evaluated. There is pericystic infiltration. Intraluminal gas is likely related to instrumentation. The uterus is surgica lly absent. No adnexal lesion is seen. Skeletal structures: The skeletal structures are osteopenic. There is advanced lumbosacral spondylosi s. No lytic or blastic lesions are seen. IMPRESSION: 1. The bladder is decompressed a round a Shaw catheter not well evaluated. There is pericystic infla mmation. Correlate with clinical findings and urinalysis for evidence of cystitis. 2. Sigmoid diverticulosis without CT evidence of acute diverticulitis. 3. Cholelithiasis. 4. Moderate to large hiatal hernia. 5. Cardiomegaly. 6. Additional findings as above. ACT 112: Negative or not required by law. Electronically signed by: Alexis Casiano M.D. 05/19/2022 4:07 PM
--- NOTE | 2022-05-19 16:15 | History & Physical Report ---
Date of Service May 19, 2022 Assessment & Plan (1) Altered mental status: (2) Weakness: Plan: -Admit to PCU - Stroke order set completed, no indication for thrombolytic - CT head reviewed and is negative - MRI brain wo contrast ordered -Give full dose aspirin and atorvastatin 80 mg now - Will allow permissive hypertension with SBP 140-170 - Neurology consulted - PT/OT consults placed -Fall precautions -Speech therapy consult -Check TSH -A1c and lipid panel for completeness -Mag is 1.6 on admission, replaced -Potassium 3.4, replaced orally (3) Fever: Plan: -Concern for underlying UTI, UA appears fairly clean, await urine culture -Follow blood cultures x2 -IV cefepime started in the ER, continue -WBC 6.03, Tmax 38.2 on admission -CT of the abdomen pelvis showing possible underlying cystitis, reviewed personally (4) PSVT (paroxysmal supraventricular tachycardia): (5) Dyslipidemia: Plan: - Last echo from Nov showing EF of 50-55%, LVH is mild -Check lipids, increase atorvastatin to 80 mg secondary to possible CVA as above for plaque stabilization (6) Asthma: Plan: -Mild, stable, does not use inhalers at baseline -Does not use supplemental O2 at baseline, currently requiring 2 L with O2 sats at 97%, wean as tolerated, noted to be 88% upon arrival to the ER -COVID, RSV and flu swabs are negative -CXR reviewed and is negative (7) Hypothyroidism: Plan: -Check TSH, continue levothyroxine 100 mcg daily -Patient's son reports that her PCP recently changed her to take this at noon DVT PPx: - teds, scds, placed on heparin subcu CODE: DNR/DNI Dispo: From home, likely to remain in the hospital x 1-2 days History of Present Illness Chief Complaint: Weakness Primary Care Provider: Dulce Maria Quintero, This is a 89-year-old female with PMHx of paroxysmal SVT, HTN, HLD, DM type II, hypothyroidism, iron deficiency anemia, GERD, asthma, restless leg syndrome, CKD stage III who presents to the hospital with worsening weakness over the past 1 day. Patient spiked a fever here of 38.2 in the ER. Concern for underlying infectious source vs possible stroke. The patient's son, Serafin is present at bedside and supports the majority of the history. The patient is very hard of hearing and answers yes or no with a completely negative review of systems. Serafin notes that she she lives in his [place] with his fiance. She typically is able to participate in ADLs without any difficulty, walks with a walker, no recent falls, and is fairly independent minus cooking her meals and doing her laundry. Yesterday around 2 PM she was having issues with walking, leaning to the left, then around 5 PM developed worsening slurring of her speech. By 8 PM her symptoms had resolved and she went to bed. This morning upon waking her weakness was progressed and she was walking incredibly slowly with a walker, hesitating, and seemed more confused. She refused her morning medications and has not eaten today because she states she is not hungry. Typically the patient has a good appetite and this is not like herself. He notes her history of UTI, where she typically reports dysuria and has increased frequency. Last night she walked to the bathroom 3 times which is less than her normal. She has not complained of dysuria, burning or lower abdominal pain today. Nursing reported 1 soft bowel movement, diarrhea, in the ER. Allergies Allergy/AdvReac Type Severity Reaction Status Date / Time No Known Allergies Allergy Verified 12/02/19 10:50 Home Medications Medication Instructions Recorded Confirmed Type ropinirole 0.25 mg tablet (Requip) 0.5 mg PO QPM 02/19/18 05/19/22 History trazodone 100 mg tablet 100 mg PO QPM 02/19/18 05/19/22 History atorvastatin 20 mg tablet 20 mg PO HS 07/06/19 05/19/22 History cholecalciferol (vitamin D3) 25 25 mcg PO DAILY 11/22/19 05/19/22 History mcg (1,000 unit) capsule (Vitamin D3) cyanocobalamin (vitamin B-12) 1,000 mcg PO DAILY 11/22/19 05/19/22 History 1,000 mcg tablet (Vitamin B-12) omeprazole 40 mg capsule,delayed 40 mg PO DAILY 11/22/19 05/19/22 History release Wheeled Walker #1 ea 11/23/19 05/19/22 Rx aspirin 81 mg tablet,delayed 81 mg PO DAILY #30 tabs 11/23/19 05/19/22 Rx release (Ecotrin Low Strength) amlodipine 2.5 mg tablet 2.5 mg PO DAILY 05/19/22 05/19/22 History levothyroxine 75 mcg tablet 75 mcg PO DAILY 05/19/22 05/19/22 History metoprolol succinate 25 mg 25 mg PO DAILY 05/19/22 05/19/22 History tablet,extended release 24 hr Past Med/Surg History Medical History Asthma Diabetes mellitus type 2 with complications Diverticulitis Dyslipidemia GI bleed Hemorrhoid Hypothyroidism PSVT (paroxysmal supraventricular tachycardia) Stroke Surgical History (Updated 05/19/22 @ 16:11 by Michaela Crow PA-C) History of left knee replacement Hx of colonoscopy Hx of esophagogastroduodenoscopy Hx of hysterectomy Family History (Updated 12/02/19 @ 13:32 by Alexis Armendariz PA-C) Other Family history non-contributory Social History Smoking Status: Never smoker Hx Alcohol Use: No Hx Substance Use: No Preferred Language: Romansh Communication Ability: Impaired Communication Ability Comment: Pt said her son understands everything that she does not Dovetailer Required: No Beliefs That Will Affect Care: None marital status: / Current Living Situation: Family Current Living Situation Comment: Home with son Feels Safe at Home: Yes Safety Concerns: Feels Safe At This Time Assistive Devices: Walker Assistive Devices Comment: States that she cannot get up without walker Review of Systems Review of Systems: Constitutional: No fever, sweats or chills Eyes: No diplopia, no worsening or blurred vision ENT: normal hearing, no trouble swallowing Respiratory: No cough, sputum, dyspnea at rest or on exertion Cardiovascular: No chest pain, tightness or palpitations Abdomen: No pain, nausea, vomiting, diarrhea or constipation Musculoskeletal: No joint pain, calf pain, swelling Neurologic: No weakness, numbness/tingling, or balance problems Psychiatric: No anxiety or depression Skin: No rash or itch Physical Exam Physical Exam: General: awake, alert, no apparent distress Head: Normocephalic, atraumatic ENT: PERRL, EOMI, no pharyngeal exudate, mucous membranes moist Chest: Clear to auscultation, on 2L via NC with O2 sats at 97%, no adventitious breath sounds Cardiac: Regular rate and rhythm, no murmur, no JVD, normal peripheral pulses, good capillary refill Abdominal: NABS x 4 quadrants, soft, nondistended, nontender to palpation, no rebound or guarding : Shaw catheter in place draining dark yellow urine Extremities: Normal inspection, no peripheral edema or erythema, calfs nontender to palpation Psych: Normal mood and affect Skin: Chronic dry skin throughout, no erythema, rash or redness Neuro: AAO to self and her son, cannot name the hospital or town., strength intact bilaterally and rated 3/5, no focal motor deficits, speech is clear, no peripheral sensory deficits Results & Data Results & Data Vital Signs (Past 12 Hours) Vital Signs Temp Pulse Resp BP Pulse Ox O2 Del Method O2 Flow Rate 05/19/22 16:01 72 25 H 126/67 97 Room Air 05/19/22 15:30 78 20 115/59 L 96 Room Air 05/19/22 15:00 83 25 H 98/56 L 96 Room Air 05/19/22 14:30 89 20 124/59 L 96 Room Air 05/19/22 14:00 93 H 32 H 130/83 97 Room Air 05/19/22 14:03 93 H 05/19/22 14:01 88 L Nasal Cannula 0 05/19/22 13:41 38.2 C H 99 H 18 128/74 89 L Room Air Laboratory Results 05/19/22 15:04 Aerobic Blood Culture - Pending Blood Anaerobic Blood Culture - Pending 05/19/22 14:03 Aerobic Blood Culture - Pending Blood Anaerobic Blood Culture - Pending 05/19/22 05/19/22 05/19/22 14:03 14:03 14:03 WBC RBC Hgb Hct MCV MCH MCHC RDW Std Deviation RDW Coeff of Caroline Plt Count MPV Immature Gran % (Auto) Neut % (Auto) Lymph % (Auto) [place] % (Auto) Eos % (Auto) Baso % (Auto) Neut # (Auto) Lymph # (Auto) [place] # (Auto) Eos # (Auto) Baso # (Auto) Immature Gran # (Auto) RBC Morphology PT INR APTT PTT Ratio Sodium 133 L Potassium 3.4 L Chloride 94 L Carbon Dioxide 30 Anion Gap 9 BUN 15 Creatinine 0.77 Est Cr Clr Drug Dosing Not Reportable Est GFR ( Amer) 79.3 Est GFR (Non-Af Amer) 68.5 BUN/Creatinine Ratio 19.5 Glucose 192 H Lactate 1.7 Calcium 8.4 L Magnesium 1.6 L Total Bilirubin 1.0 Direct Bilirubin 0.3 H AST 30 ALT 18 Alkaline Phosphatase 65 Troponin I High Sens 11.0 Total Protein 7.4 Albumin 3.9 Procalcitonin 0.39 Urine Color Urine Appearance Urine pH Ur Specific Marshall Urine Protein Urine Glucose (UA) Urine Ketones Urine Blood Urine Nitrite Urine Bilirubin Urine Urobilinogen Ur Leukocyte Esterase Urine WBC (Auto) Urine RBC (Auto) U Hyaline Cast (Auto) U Epithel Cells (Auto) Urine Bacteria (Auto) SARS-CoV-2 (PCR) Influenza Type A (PCR) Influenza Type B (PCR) RSV (RT-PCR) 05/19/22 05/19/22 05/19/22 14:03 14:03 13:56 WBC 6.03 RBC 3.88 L Hgb 12.6 Hct 37.3 MCV 96.1 MCH 32.5 MCHC 33.8 RDW Std Deviation 48.9 H RDW Coeff of Caroline 13.8 Plt Count 161 MPV 9.7 Immature Gran % (Auto) 0.7 Neut % (Auto) 90.2 Lymph % (Auto) 6.0 [place] % (Auto) 2.8 Eos % (Auto) 0.0 Baso % (Auto) 0.3 Neut # (Auto) 5.44 Lymph # (Auto) 0.36 L [place] # (Auto) 0.17 Eos # (Auto) 0.00 Baso # (Auto) 0.02 Immature Gran # (Auto) 0.04 RBC Morphology Unremarkable PT 11.4 INR 1.1 APTT 27.4 PTT Ratio 1.0 Sodium Potassium Chloride Carbon Dioxide Anion Gap BUN Creatinine Est Cr Clr Drug Dosing Est GFR ( Amer) Est GFR (Non-Af Amer) BUN/Creatinine Ratio Glucose Lactate Calcium Magnesium Total Bilirubin Direct Bilirubin AST ALT Alkaline Phosphatase Troponin I High Sens Total Protein Albumin Procalcitonin Urine Color Urine Appearance Urine pH Ur Specific Marshall Urine Protein Urine Glucose (UA) Urine Ketones Urine Blood Urine Nitrite Urine Bilirubin Urine Urobilinogen Ur Leukocyte Esterase Urine WBC (Auto) Urine RBC (Auto) U Hyaline Cast (Auto) U Epithel Cells (Auto) Urine Bacteria (Auto) SARS-CoV-2 (PCR) NEGATIVE Influenza Type A (PCR) Negative Influenza Type B (PCR) Negative RSV (RT-PCR) Negative 05/19/22 13:56 WBC RBC Hgb Hct MCV MCH MCHC RDW Std Deviation RDW Coeff of Caroline Plt Count MPV Immature Gran % (Auto) Neut % (Auto) Lymph % (Auto) [place] % (Auto) Eos % (Auto) Baso % (Auto) Neut # (Auto) Lymph # (Auto) [place] # (Auto) Eos # (Auto) Baso # (Auto) Immature Gran # (Auto) RBC Morphology PT INR APTT PTT Ratio Sodium Potassium Chloride Carbon Dioxide Anion Gap BUN Creatinine Est Cr Clr Drug Dosing Est GFR ( Amer) Est GFR (Non-Af Amer) BUN/Creatinine Ratio Glucose Lactate Calcium Magnesium Total Bilirubin Direct Bilirubin AST ALT Alkaline Phosphatase Troponin I High Sens Total Protein Albumin Procalcitonin Urine Color Dark Yellow Urine Appearance Clear Urine pH 5.0 Ur Specific Marshall 1.023 Urine Protein 1+ H Urine Glucose (UA) Negative Urine Ketones Negative Urine Blood Negative Urine Nitrite Negative Urine Bilirubin Negative Urine Urobilinogen Negative Ur Leukocyte Esterase Negative Urine WBC (Auto) 1-5 Urine RBC (Auto) 0-4 U Hyaline Cast (Auto) 1-5 U Epithel Cells (Auto) >30 H Urine Bacteria (Auto) Negative SARS-CoV-2 (PCR) Influenza Type A (PCR) Influenza Type B (PCR) RSV (RT-PCR) Diagnostic Findings Chest X-Ray 05/19/22 13:48 XR chest 1V portable HISTORY: Sepsis COMPARISON: Chest 12/02/2019. FINDINGS: There are old, healed left-sided rib fractures. No focal lung consolidations to suggest a pneumonia. No evidence for pulmonary edema. There are low lung volumes. The cardiac silhouette remains mildly enlarged. There is a moderate hiatus hernia, unchanged. Calcifications again noted within the aortic knob. Stable right hilar prominence. IMPRESSION: No significant change compared to the prior study. No acute process. ACT 112: Negative or not required by law. Electronically signed by: Vamsi Arango M.D. 05/19/2022 2:[address] 05/19/22 13:58 CT SCAN OF THE BRAIN WITHOUT IV CONTRAST CLINICAL HISTORY: Delirium. Generalized weakness. COMPARISON STUDY: CT of the brain dated 12/02/2019. TECHNIQUE: Unenhanced axial CT scan of the brain is performed from the vertex to the skull base. A dose lowering technique was utilized adhering to the principles of ALARA. CT DOSE: 1277.12 mGycm FINDINGS: Brain parenchyma: There is age-related involutional change noting moderate to advanced subcortical and periventricular microangiopathic disease. There is no hemorrhage, mass effect, or evidence of acute territorial ischemia by CT criteria. Crawford-white matter differentiation is preserved. There is a small chronic lacunar infarct in the left thalamus. No extra-axial fluid collection is seen. Ventricles, sulci, cisterns: Prominent secondary to involutional change. Intracranial vasculature: There is atherosclerotic calcification of the cavernous carotid and vertebral arteries. Calvarium: Unremarkable. Sinuses and mastoids: The visualized paranasal sinuses are clear. The mastoid air cells are well pneumatized. Orbits: The bony orbits are grossly intact. There are bilateral ocular lens implants. IMPRESSION: There is no hemorrhage, mass effect, or evidence of acute territorial ischemia by CT criteria. ACT 112: Negative or not required by law. Electronically signed by: Alexis Casiano M.D. 05/19/2022 3:29 PM Abdomen/Pelvis CT 05/19/22 15:36 CT SCAN OF THE ABDOMEN AND PELVIS WITH IV CONTRAST CLINICAL HISTORY: Fever. Change in mental status. Diarrhea. COMPARISON STUDY: Abdominal CT dated 08/02/2013. TECHNIQUE: Following the IV administration of 88 cc of Optiray 350, CT scan of the abdomen and pelvis is performed from the lung bases to the proximal femora. Images are reviewed in the axial, sagittal, and coronal planes. IV contrast was administered without complication. A dose lowering technique was utilized adhering to the principles of ALARA. The examination is degraded by motion artifact. CT DOSE: 292.55 mGy.cm FINDINGS: Lung bases: The heart is enlarged and without pericardial effusion. The coronary arteries are densely calcified. Evaluation of the lung bases is compromised by motion artifact. The lung bases are grossly clear noting bibasilar scarring/atelectasis. There is a moderate to large hiatal hernia. Liver: The contrast-enhanced liver is normal in size, contour, and attenuation. There is no intrahepatic biliary ductal dilatation. The hepatic veins and portal veins are patent. Gallbladder: There are gallstones with no CT evidence of acute cholecystitis. Spleen: Normal in size and attenuation. Pancreas: A 14 mm ovoid simple cystic lesion in the distal pancreatic body on image #126 has been present dating back to 2013. 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 The pancreas is moderately atrophic and otherwise grossly unremarkable. Adrenal glands: Unremarkable. Kidneys: The contrast enhanced kidneys demonstrate mild cortical atrophy and are without hydronephrosis. The kidneys enhance symmetrically. A 2.1 cm cyst is noted on the left. Abdominal vasculature: The abdominal aorta is normal in course and caliber noting moderate to advanced atherosclerotic calcification. Bowel: There is advanced sigmoid diverticulosis without CT evidence of acute diverticulitis. No bowel obstruction is seen. Mild fecal retention is noted throughout the colon. The appendix is well-visualized and normal. Peritoneum: There is no intraperitoneal free air or abdominal ascites. There is a small fat-containing umbilical hernia. Lymphadenopathy: None. Pelvic viscera: The bladder is decompressed around a Shaw catheter and not well evaluated. There is pericystic infiltration. Intraluminal gas is likely related to instrumentation. The uterus is surgically absent. No adnexal lesion is seen. Skeletal structures: The skeletal structures are osteopenic. There is advanced lumbosacral spondylosis. No lytic or blastic lesions are seen. IMPRESSION: 1. The bladder is decompressed a round a Shaw catheter not well evaluated. There is pericystic inflammation. Correlate with clinical findings and urinalysis for evidence of cystitis. 2. Sigmoid diverticulosis without CT evidence of acute diverticulitis. 3. Cholelithiasis. 4. Moderate to large hiatal hernia. 5. Cardiomegaly. 6. Additional findings as above. ACT 112: Negative or not required by law. Electronically signed by: Alexis Casiano M.D. 05/19/2022 4:07 PM Code Status & VTE Plan Code Status DNR/DNI-discussed with the patient's son at bedside Supervising Physician Co-Signing Physician Notes Patient is an 89-year-old female with history of hypertension, hyperlipidemia, hypothyroidism, diabetes mellitus--diet controlled, CKD stage III and other medical problems presents with history of generalized weakness, fever, strokelike symptoms. Patient is a poor historian secondary to hearing impairment. Most of the history is obtained from patient's son at bedside. Patient was noted to have difficulty ambulating, leaning towards the left side and had transient word finding difficulty yesterday at around 5 PM. Symptoms resolved at home 8 PM. This morning, patient was noted to have progressive worsening generalized weakness and also was noted to have some confusion. Please review HPI for complete details of presentation. Patient currently denies any symptoms and eager to get discharged from ED. She denies any chest pain, dyspnea, dysuria, hematuria, dizziness, nausea, abdominal pain. I personally reviewed blood work, imaging studies, EKG. Urinalysis fairly within normal limits. CT head showed no acute intracranial abnormality. CT abdomen suggestive of possible cystitis. MRI brain showed no acute intracranial abnormality. EKG showed normal sinus rhythm, left axis deviation, left bundle branch block, no significant change from prior EKGs. On exam patient is moderately built and nourished, elderly, no apparent distress, normocephalic atraumatic, EOMI, normal breath sounds, clear to auscultation, S1-S2, no murmur, no pedal edema, abdomen soft, nontender, normal bowel sounds, alert, awake, oriented to person and place, moves all extremities with no difficulty, speech clear. Grossly no focal deficits. Patient is admitted for management of strokelike symptoms, confusion, fever, generalized weakness, hypokalemia and hypomagnesemia, hypoxia. Patient also had hypoxia while in ED requiring 2 L supplemental oxygen to maintain saturation. Likely TIA. Continue aspirin, Lipitor. Update lipid panel, A1c. Neurology evaluation, neurochecks requested. PT OT, fall precautions, speech therapy evaluation requested. Possible cystitis. Empirically on cefepime. Follow-up blood, urine cultures. We will give insulin sliding scale per protocol for management of diabetes while hospitalized. Replace electrolytes as needed. We will give gentle IV fluids given hemoconcentration when compared to prior CBC. Will monitor for other sources of infection if develops any new symptoms. I personally reviewed the record. Patient is interviewed and examined at bedside. Patient's care is coordinated with Michaela Crow PA-C. Please refer to the documentation above for details of patient's presentation and for discussion of other issues. (1) Altered mental status Altered mental status type: unspecified Qualified Code(s): R41.82 - Altered mental status, unspecified
[2022-05-19] MEDS ORDERED: POTASSIUM CHLORIDE CRTAB 20 MEQ TABCR PO STA (16:33)
[2022-05-19] MEDS ORDERED: ASPIRIN CHEW 324 MG PO STA (16:57)
[2022-05-19] MEDS ORDERED: ATORVASTATIN 40 MG TAB PO ONE (16:58)
--- NOTE | 2022-05-19 19:35 | Magnetic Resonance Report ---
MRI OF THE BRAIN WITHOUT IV CONTRAST CLINICAL HISTORY: Change in mental status. COMPARISON STUDY: CT of the brain dated 05/19/2022. MRI of the brain dated 12/02/2019. TECHNIQUE: MRI of the brain was performed utilizing various T1 and T2-weighted sequences in the axial , sagittal, and coronal planes. IV contrast was not administered for this examination. The examinatio n is significantly degraded by motion artifact. Axial T1 and axial gradient sequences were not acquir ed as the patient would not cooperate for further imaging. 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 There is no hemorrhage or mass effect. There is no restrict ed diffusion to suggest acute ischemia. Crawford-white matter differentiation is preserved. No extra-axia l fluid collection is seen. 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 The cerebellar t onsils are normal in configuration. Ventricles, sulci, and cisterns: Prominent secondary to positional change. Pituitary and sella: Partially empty sella is incidentally noted. Intracranial vasculature: Normal flow voids are maintained at the skull base. Orbits: The bony orbits are grossly intact. Orbital contents are normal in appearance note bilateral ocular lens implants. Sinuses and mastoids: Clear. Calvarium: Unremarkable. Cervical cord: Partially visualized cervical spinal cord is normal in morphology and signal intensity . IMPRESSION: No acute intracranial abnormality is identified noting a motion compromised examination. ACT 112: Negative or not required by law. Electronically signed by: Alexis Casiano M.D. 05/19/2022 7:33 PM
[2022-05-19] MEDS ORDERED: PHARMACIST DISCHARGE MED REC CONSULT PRN (19:38)
[2022-05-19] MEDS ORDERED: ONDANSETRON INJ 2 MG/ML 2 ML VIAL IV PRN (19:38)
[2022-05-19] MEDS ORDERED: ACETAMINOPHEN 325 MG TAB PO PRN (19:38)
[2022-05-19 20:28] LABS: Thyroid Stimulating Hormone 6.127 uIu/ml (0.300-4.500)
[2022-05-19 21:03] LABS: T4 Free Thyroxine 0.67 ng/dl (0.61-1.60)
[2022-05-19] MEDS ORDERED: GLUCOSE 10 TAB/TUBE PO PRN (21:15)
[2022-05-19] MEDS ORDERED: GLUCAGON FOR INJ 1 MG VIAL SQ PRN (21:15)
[2022-05-19] MEDS ORDERED: DEXTROSE 50% 50 ML SYRINGE IV PRN (21:15)
[2022-05-19] MEDS ORDERED: CARBOHYDRATES FOR HYPOGLYCEMIA PO PRN (21:15)
[2022-05-19] MEDS ORDERED: GLUCOSE 40% GEL 15 GM TUBE PO PRN (21:15)
[2022-05-19] MEDS: traZODone HCL 100 MG TAB PO SCH (21:45)
[2022-05-19] MEDS: HEPARIN SOD 5,000 UNIT/0.5 ML VIAL SQ SCH (21:45)
[2022-05-19] MEDS: rOPINIRole HCL 0.25 MG TABLET PO SCH (21:45)
[2022-05-20] MEDS: CEFEPIME 1,000 MG in SYRINGE 0 ML IV SCH ×2 (03:33→15:30)
[2022-05-20] MEDS: INSULIN ASPART PER UNIT CHARGE SC SCH ×4 (07:50→20:10)
[2022-05-20] MEDS: ASPIRIN 81 MG ECTAB PO SCH (09:04)
[2022-05-20] MEDS: CHOLECALCIFEROL 1,000 UNITS 25 MCG TAB PO SCH (09:04)
[2022-05-20] MEDS: ATORVASTATIN 40 MG TAB PO SCH (09:04)
[2022-05-20] MEDS: PANTOprazole 40 MG TAB PO SCH (09:05)
[2022-05-20] MEDS: METOPROLOL SUCC 25MG EXT REL TAB PO SCH (09:05)
[2022-05-20] MEDS: LEVOTHYROXINE SODIUM 75 MCG TABLET PO SCH (09:05)
[2022-05-20] MEDS: CYANOCOBALAMIN (B-12) 500 MCG TABLET PO SCH (09:05)
[2022-05-20] MEDS: HEPARIN SOD 5,000 UNIT/0.5 ML VIAL SQ SCH ×2 (09:06→20:38)
[2022-05-20] MEDS ORDERED: MAGNESIUM SULFATE / D5W 1 GM/100 ML BAG IV ONE (09:28)
[2022-05-20] MEDS ORDERED: POTASSIUM CHLORIDE CRTAB 20 MEQ TABCR PO STA (09:29)
--- NOTE | 2022-05-20 10:01 | Hospitalist Progress Note ---
Date of Service May 20, 2022 Assessment & Plan (1) Altered mental status: (2) Weakness: Plan: -Admitted to PCU - Stroke order set completed, no indication for thrombolytic - CT head reviewed and is negative - MRI brain wo contrast - negative - Continue aspirin and atorvastatin - ? poss. TIA - Will allow permissive hypertension with SBP 140-170 - Neurology consulted- eval pending - PT/OT consults placed - Fall precautions - Speech therapy consult - TSH 6.1 mildly up - A1c and lipid panel ordered Electrolyte abnormalities -Mag is 1.6 on admission -Potassium 3.4 - replace and monitor electrolytes (3) Fever: Plan: -Concern for underlying UTI, UA appears fairly clean, await urine culture -Follow blood cultures x2 -IV cefepime started in the ER, continue -WBC 6.03, Tmax 38.2 C on admission -CT of the abdomen pelvis showing possible underlying cystitis - loose stools noted in ED and this AM - stool PCR ordered (4) PSVT (paroxysmal supraventricular tachycardia): (5) Dyslipidemia: Plan: - Last echo from Nov showing EF of 50-55%, LVH is mild - Check lipids, increase atorvastatin to 80 mg secondary to possible CVA as above for plaque stabilization (6) Asthma: Plan: -Mild, stable, does not use inhalers at baseline -Does not use supplemental O2 at baseline, currently requiring 2 L with O2 sats at 97%, wean as tolerated, noted to be 88% upon arrival to the ER -COVID, RSV and flu swabs are negative -CXR reviewed personally by me and negative -encourage incentive spirometry (7) Hypothyroidism: Plan: - TSH 6, continue levothyroxine 100 mcg daily -Patient's son reports that her PCP recently changed her to take this at noon DVT PPx: - teds, scds, placed on heparin subcu CODE: DNR/DNI Dispo: From home, likely to remain in the hospital x 1-2 days Admission and Anticipated Discharge Date Admission Date: May 19, 2022 Subjective Patient seen in follow-up of weakness, word finding difficulty, difficulty with ambulation, and fever in ED Loose stool also noted in ED and this morning. Stool PCR ordered. Patient was started on empiric cefepime on admission. Brain MRI negative. Neurology consulted. Review of Systems Review of Systems: All systems reviewed & are unremarkable except as noted in Subjective Physical Exam Physical Exam: General: Elderly frail F, in NAD Head: Normocephalic, atraumatic ENT: PERRL, EOMI, mucous membranes moist Chest: Clear to auscultation, on 2L via NC with O2 sats at 97%, no adventitious breath sounds Cardiac: Regular rate and rhythm, no murmur Abdominal: NABS x 4 quadrants, soft, nondistended, nontender to palpation, no rebound or guarding : Shaw catheter in place draining yellow urine Extremities: Normal inspection, no peripheral edema or erythema Psych: Normal mood and affect Skin: dry, warm, no erythema, or rash Neuro: Awake and alert, able to answer simple questions appropriately. Does not remember events of yesterday. But is able to say that her son brought her here, speech is slow but fluent, no facial asymmetry noted, patient moves extremities Results & Data Results & Data Vital Signs (Past 12 Hours) Vital Signs Temp Pulse Pulse Resp BP Pulse Ox O2 Del Method 05/20/22 09:02 78 130/70 05/20/22 07:57 75 05/20/22 07:24 36.8 C 73 18 135/68 97 Nasal Cannula 05/20/22 03:57 36.4 C L 83 16 121/69 95 Nasal Cannula 05/19/22 22:29 66 05/19/22 23:13 36.5 C 72 16 103/65 97 Nasal Cannula O2 Flow Rate 05/20/22 09:02 05/20/22 07:57 05/20/22 07:24 2 05/20/22 03:57 1.0 05/19/22 22:29 05/19/22 23:13 2.0 Laboratory Results 05/20/22 05/19/22 05/19/22 Range/Units 07:21 20:45 14:03 WBC (4.8-10.8) K/ul RBC (4.20-5.40) M/uL Hgb (12.0-16.0) g/dl Hct (37.0-47.0) % MCV (80.0-100.0) fL MCH (25.0-34.0) pg MCHC (32.0-36.0) g/dL RDW Std Deviation (36.4-46.3) fL RDW Coeff of Caroline (11.5-14.5) % Plt Count (130-400) K/uL MPV (9.4-12.4) fL Immature Gran % (Auto) % Neut % (Auto) % Lymph % (Auto) % [place] % (Auto) % Eos % (Auto) % Baso % (Auto) % Neut # (Auto) (1.40-6.50) K/uL Lymph # (Auto) (1.2-3.4) K/uL [place] # (Auto) (0.11-0.59) K/uL Eos # (Auto) (0-0.50) K/uL Baso # (Auto) (0-0.2) K/uL Immature Gran # (Auto) (0.01-0.20) K/uL RBC Morphology PT (9.0-12.0) Seconds INR (0.9-1.1) APTT (21.0-31.0) Seconds PTT Ratio Sodium (136-145) mmol/L Potassium (3.5-5.1) mmol/L Chloride (98-107) mmol/L Carbon Dioxide (21-32) mmol/L Anion Gap (3-11) BUN (6-23) mg/dl Creatinine (0.6-1.2) mg/dl Est Cr Clr Drug Dosing Est GFR ( Amer) ml/min Est GFR (Non-Af Amer) ml/min BUN/Creatinine Ratio (10-20) Glucose (70-99(Fasting)) mg/dl POC Glucose 139 H 138 H (70-99) mg/dl Lactate (0.4-2.0) mmol/L Calcium (8.5-10.1) mg/dl Magnesium (1.7-2.4) mg/dl Total Bilirubin (0.2-1.0) mg/dl Direct Bilirubin (0-0.2) mg/dl AST (13-39) U/L ALT (7-52) U/L Alkaline Phosphatase (34-104) U/L Troponin I High Sens (0-14) pg/ml Total Protein (6.0-8.3) gm/dl Albumin (3.4-5.0) gm/dl Procalcitonin (0-0.5) ng/ml TSH 6.127 H (0.300-4.500) uIu/ml Free T4 0.67 (0.61-1.60) ng/dl Urine Color Urine Appearance (Clear) Urine pH (4.5-7.5) Ur Specific [place] (1.000-1.030) Urine Protein (Negative) Urine Glucose (UA) (Negative) Urine Ketones (Negative) Urine Blood (Negative) Urine Nitrite (Negative) Urine Bilirubin (Negative) Urine Urobilinogen (Negative) Ur Leukocyte Esterase (Negative) Urine WBC (Auto) (0-5) /hpf Urine RBC (Auto) (0-4) /hpf U Hyaline Cast (Auto) (0-5) /lpf U Epithel Cells (Auto) (0-5) /lpf Urine Bacteria (Auto) (Negative) SARS-CoV-2 (PCR) (Negative) Influenza Type A (PCR) (Neg) Influenza Type B (PCR) (Neg) RSV (RT-PCR) (Neg) 05/19/22 05/19/22 05/19/22 Range/Units 14:03 14:03 14:03 WBC (4.8-10.8) K/ul RBC (4.20-5.40) M/uL Hgb (12.0-16.0) g/dl Hct (37.0-47.0) % MCV (80.0-100.0) fL MCH (25.0-34.0) pg MCHC (32.0-36.0) g/dL RDW Std Deviation (36.4-46.3) fL RDW Coeff of Caroline (11.5-14.5) % Plt Count (130-400) K/uL MPV (9.4-12.4) fL Immature Gran % (Auto) % Neut % (Auto) % Lymph % (Auto) % [place] % (Auto) % Eos % (Auto) % Baso % (Auto) % Neut # (Auto) (1.40-6.50) K/uL Lymph # (Auto) (1.2-3.4) K/uL [place] # (Auto) (0.11-0.59) K/uL Eos # (Auto) (0-0.50) K/uL Baso # (Auto) (0-0.2) K/uL Immature Gran # (Auto) (0.01-0.20) K/uL RBC Morphology PT (9.0-12.0) Seconds INR (0.9-1.1) APTT (21.0-31.0) Seconds PTT Ratio Sodium 133 L (136-145) mmol/L Potassium 3.4 L (3.5-5.1) mmol/L Chloride 94 L (98-107) mmol/L Carbon Dioxide 30 (21-32) mmol/L Anion Gap 9 (3-11) BUN 15 (6-23) mg/dl Creatinine 0.77 (0.6-1.2) mg/dl Est Cr Clr Drug Dosing Not Reportable Est GFR ( Amer) 79.3 ml/min Est GFR (Non-Af Amer) 68.5 ml/min BUN/Creatinine Ratio 19.5 (10-20) Glucose 192 H (70-99(Fasting)) mg/dl POC Glucose (70-99) mg/dl Lactate 1.7 (0.4-2.0) mmol/L Calcium 8.4 L (8.5-10.1) mg/dl Magnesium 1.6 L (1.7-2.4) mg/dl Total Bilirubin 1.0 (0.2-1.0) mg/dl Direct Bilirubin 0.3 H (0-0.2) mg/dl AST 30 (13-39) U/L ALT 18 (7-52) U/L Alkaline Phosphatase 65 (34-104) U/L Troponin I High Sens 11.0 (0-14) pg/ml Total Protein 7.4 (6.0-8.3) gm/dl Albumin 3.9 (3.4-5.0) gm/dl Procalcitonin 0.39 (0-0.5) ng/ml TSH (0.300-4.500) uIu/ml Free T4 (0.61-1.60) ng/dl Urine Color Urine Appearance (Clear) Urine pH (4.5-7.5) Ur Specific [place] (1.000-1.030) Urine Protein (Negative) Urine Glucose (UA) (Negative) Urine Ketones (Negative) Urine Blood (Negative) Urine Nitrite (Negative) Urine Bilirubin (Negative) Urine Urobilinogen (Negative) Ur Leukocyte Esterase (Negative) Urine WBC (Auto) (0-5) /hpf Urine RBC (Auto) (0-4) /hpf U Hyaline Cast (Auto) (0-5) /lpf U Epithel Cells (Auto) (0-5) /lpf Urine Bacteria (Auto) (Negative) SARS-CoV-2 (PCR) (Negative) Influenza Type A (PCR) (Neg) Influenza Type B (PCR) (Neg) RSV (RT-PCR) (Neg) 05/19/22 05/19/22 05/19/22 Range/Units 14:03 14:03 13:56 WBC 6.03 (4.8-10.8) K/ul RBC 3.88 L (4.20-5.40) M/uL Hgb 12.6 (12.0-16.0) g/dl Hct 37.3 (37.0-47.0) % MCV 96.1 (80.0-100.0) fL MCH 32.5 (25.0-34.0) pg MCHC 33.8 (32.0-36.0) g/dL RDW Std Deviation 48.9 H (36.4-46.3) fL RDW Coeff of Caroline 13.8 (11.5-14.5) % Plt Count 161 (130-400) K/uL MPV 9.7 (9.4-12.4) fL Immature Gran % (Auto) 0.7 % Neut % (Auto) 90.2 % Lymph % (Auto) 6.0 % [place] % (Auto) 2.8 % Eos % (Auto) 0.0 % Baso % (Auto) 0.3 % Neut # (Auto) 5.44 (1.40-6.50) K/uL Lymph # (Auto) 0.36 L (1.2-3.4) K/uL [place] # (Auto) 0.17 (0.11-0.59) K/uL Eos # (Auto) 0.00 (0-0.50) K/uL Baso # (Auto) 0.02 (0-0.2) K/uL Immature Gran # (Auto) 0.04 (0.01-0.20) K/uL RBC Morphology Unremarkable PT 11.4 (9.0-12.0) Seconds INR 1.1 (0.9-1.1) APTT 27.4 (21.0-31.0) Seconds PTT Ratio 1.0 Sodium (136-145) mmol/L Potassium (3.5-5.1) mmol/L Chloride (98-107) mmol/L Carbon Dioxide (21-32) mmol/L Anion Gap (3-11) BUN (6-23) mg/dl Creatinine (0.6-1.2) mg/dl Est Cr Clr Drug Dosing Est GFR ( Amer) ml/min Est GFR (Non-Af Amer) ml/min BUN/Creatinine Ratio (10-20) Glucose (70-99(Fasting)) mg/dl POC Glucose (70-99) mg/dl Lactate (0.4-2.0) mmol/L Calcium (8.5-10.1) mg/dl Magnesium (1.7-2.4) mg/dl Total Bilirubin (0.2-1.0) mg/dl Direct Bilirubin (0-0.2) mg/dl AST (13-39) U/L ALT (7-52) U/L Alkaline Phosphatase (34-104) U/L Troponin I High Sens (0-14) pg/ml Total Protein (6.0-8.3) gm/dl Albumin (3.4-5.0) gm/dl Procalcitonin (0-0.5) ng/ml TSH (0.300-4.500) uIu/ml Free T4 (0.61-1.60) ng/dl Urine Color Urine Appearance (Clear) Urine pH (4.5-7.5) Ur Specific [place] (1.000-1.030) Urine Protein (Negative) Urine Glucose (UA) (Negative) Urine Ketones (Negative) Urine Blood (Negative) Urine Nitrite (Negative) Urine Bilirubin (Negative) Urine Urobilinogen (Negative) Ur Leukocyte Esterase (Negative) Urine WBC (Auto) (0-5) /hpf Urine RBC (Auto) (0-4) /hpf U Hyaline Cast (Auto) (0-5) /lpf U Epithel Cells (Auto) (0-5) /lpf Urine Bacteria (Auto) (Negative) SARS-CoV-2 (PCR) NEGATIVE (Negative) Influenza Type A (PCR) Negative (Neg) Influenza Type B (PCR) Negative (Neg) RSV (RT-PCR) Negative (Neg) 05/19/22 Range/Units 13:56 WBC (4.8-10.8) K/ul RBC (4.20-5.40) M/uL Hgb (12.0-16.0) g/dl Hct (37.0-47.0) % MCV (80.0-100.0) fL MCH (25.0-34.0) pg MCHC (32.0-36.0) g/dL RDW Std Deviation (36.4-46.3) fL RDW Coeff of Caroline (11.5-14.5) % Plt Count (130-400) K/uL MPV (9.4-12.4) fL Immature Gran % (Auto) % Neut % (Auto) % Lymph % (Auto) % [place] % (Auto) % Eos % (Auto) % Baso % (Auto) % Neut # (Auto) (1.40-6.50) K/uL Lymph # (Auto) (1.2-3.4) K/uL [place] # (Auto) (0.11-0.59) K/uL Eos # (Auto) (0-0.50) K/uL Baso # (Auto) (0-0.2) K/uL Immature Gran # (Auto) (0.01-0.20) K/uL RBC Morphology PT (9.0-12.0) Seconds INR (0.9-1.1) APTT (21.0-31.0) Seconds PTT Ratio Sodium (136-145) mmol/L Potassium (3.5-5.1) mmol/L Chloride (98-107) mmol/L Carbon Dioxide (21-32) mmol/L Anion Gap (3-11) BUN (6-23) mg/dl Creatinine (0.6-1.2) mg/dl Est Cr Clr Drug Dosing Est GFR ( Amer) ml/min Est GFR (Non-Af Amer) ml/min BUN/Creatinine Ratio (10-20) Glucose (70-99(Fasting)) mg/dl POC Glucose (70-99) mg/dl Lactate (0.4-2.0) mmol/L Calcium (8.5-10.1) mg/dl Magnesium (1.7-2.4) mg/dl Total Bilirubin (0.2-1.0) mg/dl Direct Bilirubin (0-0.2) mg/dl AST (13-39) U/L ALT (7-52) U/L Alkaline Phosphatase (34-104) U/L Troponin I High Sens (0-14) pg/ml Total Protein (6.0-8.3) gm/dl Albumin (3.4-5.0) gm/dl Procalcitonin (0-0.5) ng/ml TSH (0.300-4.500) uIu/ml Free T4 (0.61-1.60) ng/dl Urine Color Dark Yellow Urine Appearance Clear (Clear) Urine pH 5.0 (4.5-7.5) Ur Specific [place] 1.023 (1.000-1.030) Urine Protein 1+ H (Negative) Urine Glucose (UA) Negative (Negative) Urine Ketones Negative (Negative) Urine Blood Negative (Negative) Urine Nitrite Negative (Negative) Urine Bilirubin Negative (Negative) Urine Urobilinogen Negative (Negative) Ur Leukocyte Esterase Negative (Negative) Urine WBC (Auto) 1-5 (0-5) /hpf Urine RBC (Auto) 0-4 (0-4) /hpf U Hyaline Cast (Auto) 1-5 (0-5) /lpf U Epithel Cells (Auto) >30 H (0-5) /lpf Urine Bacteria (Auto) Negative (Negative) SARS-CoV-2 (PCR) (Negative) Influenza Type A (PCR) (Neg) Influenza Type B (PCR) (Neg) RSV (RT-PCR) (Neg) Medications Administered Current Inpatient Medications Acetaminophen (Acetaminophen 325 Mg Tab) 650 mg PO Q4H PRN PRN Reason: Moderate Pain (Scale 4, 5, 6) Stop: 06/18/22 19:37 Aspirin (Aspirin 81 Mg Ectab) 81 mg PO DAILY [facility] Stop: 06/19/22 08:59 Last Admin: 05/20/22 09:04 Dose: 81 mg Atorvastatin Calcium (Atorvastatin 40 Mg Tab) 80 mg PO [facility] Stop: 06/19/22 08:59 Last Admin: 05/20/22 09:04 Dose: 80 mg Cyanocobalamin (Cyanocobalamin (B-12) 500 Mcg Tablet) 1,000 mcg PO DAILY [facility] Stop: 06/19/22 08:59 Last Admin: 05/20/22 09:05 Dose: 1,000 mcg Dextrose (Dextrose 50% 50 Ml Syringe) 25 - 50 ml IV UD PRN; Protocol PRN Reason: Hypoglycemia Protocol Stop: 06/18/22 21:14 Glucagon (Glucagon For Inj 1 Mg Vial) 1 mg SQ UD PRN; Protocol PRN Reason: Hypoglycemia Protocol Stop: 06/18/22 21:14 Glucose (Glucose 10 Tab/Tube) 4 - 8 tab PO UD PRN; Protocol PRN Reason: Hypoglycemia Treatment Stop: 06/18/22 21:14 Glucose (Glucose 40% Gel 15 Gm Tube) 15 - 30 gm PO UD PRN; Protocol PRN Reason: Hypoglycemia Protocol Stop: 06/18/22 21:14 Heparin Sodium (Porcine) (Heparin Sod 5,000 Unit/0.5 Ml Vial) 5,000 units SQ Q12 [facility] Stop: 06/18/22 20:59 Last Admin: 05/20/22 09:06 Dose: 5,000 units Cefepime HCl 1,000 mg/ Syringe 10 mls @ 5 mls/min IV Q12H FANY; Protocol Stop: 05/25/22 02:14 Last Admin: 05/20/22 03:33 Dose: 5 mls/min Magnesium Sulfate/Dextrose (Magnesium Sulfate / D5w) 1 gm in 100 mls @ 50 mls/hr IV ONE ONE Stop: 05/20/22 11:27 Insulin Aspart (Insulin Aspart Per Unit) 0 units SC ACHS [facility]ANY Stop: 06/19/22 07:29 Last Admin: 05/20/22 07:50 Dose: Not Given Levothyroxine Sodium (Levothyroxine Sodium 75 Mcg Tablet) 75 mcg PO DAILY [facility] Stop: 06/19/22 08:59 Last Admin: 05/20/22 09:05 Dose: 75 mcg Metoprolol Succinate (Metoprolol Succ 25mg Ext Rel Tab) 25 mg PO DAILY [facility] Stop: 06/19/22 08:59 Last Admin: 05/20/22 09:05 Dose: 25 mg Miscellaneous (Carbohydrates For Hypoglycemia ) 15 - 30 gm PO UD PRN PRN Reason: Hypoglycemia Protocol Stop: 06/18/22 21:14 Miscellaneous Information (Pharmacist Discharge Med Rec Consult) 1 each N/A UD PRN PRN Reason: Consult Stop: 06/18/22 19:37 Ondansetron HCl (Ondansetron Inj 2 Mg/Ml 2 Ml Vial) 4 mg IV Q4H PRN PRN Reason: Nausea And Vomiting Stop: 06/18/22 19:37 Pantoprazole Sodium (Pantoprazole 40 Mg Tab) 40 mg PO DAILY [facility] Stop: 06/19/22 08:59 Last Admin: 05/20/22 09:05 Dose: 40 mg Ropinirole HCl (Ropinirole Hcl 0.25 Mg Tablet) 0.5 mg PO QPM [facility]ANY Stop: 06/18/22 20:59 Last Admin: 05/19/22 21:45 Dose: 0.5 mg Trazodone HCl (Trazodone Hcl 100 Mg Tab) 100 mg PO QPM [facility] Stop: 06/18/22 20:59 Last Admin: 05/19/22 21:45 Dose: 100 mg Vitamin D (Cholecalciferol 1,000 Units 25 Mcg Tab) 1,000 units PO DAILY [facility] Stop: 06/19/22 08:59 Last Admin: 05/20/22 09:04 Dose: 1,000 units (1) Altered mental status Altered mental status type: unspecified Qualified Code(s): R41.82 - Altered mental status, unspecified
--- NOTE | 2022-05-20 10:34 | Neurology Consultation ---
Date of Consultation May 20, 2022 Assessment & Plan (1) Altered mental status: Plan NEUROLOGY CONSULTATION Assessment & Plan: Impression: pt with resolved speech change and no focal deficits. mri brain neg ative. pt with fever and being worked up for infection/UTI. overall picture not suggestive of stroke. Recommendations: -no further stroke work up needed. continue evaluation for infection and metabolic disorders. not much to add please call again if new question. will sign off. Dr. Ciaran Robles MD [facility] Neurology Chief Complaint: speech change History of Present Illness: pt this morning feeling back to herself. normal speech. no confusion. mri brain negative. pt doing well. chart reviewed. Admission/Initial HPI documentation: This is a 89-year-old female with PMHx of paroxysmal SVT, HTN, HLD, DM type II, hypothyroidism, iron deficiency anemia, GERD, asthma, restless leg syndrome, CKD stage III who presents to the hospital with worsening weakness over the past 1 day. Patient spiked a fever here of 38.2 in the ER. Concern for underlying infectious source vs possible stroke. The patient's son, Serafin is present at bedside and supports the majority of the history. The patient is very hard of hearing and answers yes or no with a completely negative review of systems. Serafin notes that she she lives in his [place] house with his fiance. She typically is able to participate in ADLs without any difficulty, walks with a walker, no recent falls, and is fairly independent minus cooking her meals and doing her laundry. Yesterday around 2 PM she was having issues with walking, leaning to the left, then around 5 PM developed worsening slurring of her speech. By 8 PM her symptoms had resolved and she went to bed. This morning upon waking her weakness was progressed and she was walking incredibly slowly with a walker, hesitating, and seemed more confused. She refused her morning medications and has not eaten today because she states she is not hungry. Typically the patient has a good appetite and this is not like herself. He notes her history of UTI, where she typically reports dysuria and has increased frequency. Last night she walked to the bathroom 3 times which is less than her normal. She has not complained of dysuria, burning or lower abdominal pain today. Nursing reported 1 soft bowel movement, diarrhea, in the ER. Past Medical History: See chart Meds: See chart I personally reviewed all of the medications Social & Family History: See chart Review of Systems: Per initial HPI on admission. Physical Exam: GEN: NAD HEENT: Normocephalic Neuro: Mental status:A & O x 3.No dysarthria or aphasia.No neglect. Fluent speech. No apraxia Cranial Nerves:II-XII intact Motor:Normal bulk and tone,5/5 strength x 4 extremities Coordination:Intact Reflexes: down going toes aly Sensation: Intact x 4 extremities to touch Chart reviewed I have spent more than 50% educating patient about potential diagnosis and neurological evaluation and coordinating care with patient's treatment team. Total time spent (including chart review and coordination of care): 80 min (this includes chart review). History of Present Illness Attending Physician: Umesh Ozuna MD Allergies Allergy/AdvReac Type Severity Reaction Status Date / Time No Known Allergies Allergy Verified 12/02/19 10:50 Home Medications Medication Instructions Recorded Confirmed Type ropinirole 0.25 mg tablet (Requip) 0.5 mg PO QPM 02/19/18 05/19/22 History trazodone 100 mg tablet 100 mg PO QPM 02/19/18 05/19/22 History atorvastatin 20 mg tablet 20 mg PO HS 07/06/19 05/19/22 History cholecalciferol (vitamin D3) 25 25 mcg PO DAILY 11/22/19 05/19/22 History mcg (1,000 unit) capsule (Vitamin D3) cyanocobalamin (vitamin B-12) 1,000 mcg PO DAILY 11/22/19 05/19/22 History 1,000 mcg tablet (Vitamin B-12) omeprazole 40 mg capsule,delayed 40 mg PO DAILY 11/22/19 05/19/22 History release Wheeled Walker #1 ea 11/23/19 05/19/22 Rx aspirin 81 mg tablet,delayed 81 mg PO DAILY #30 tabs 11/23/19 05/19/22 Rx release (Ecotrin Low Strength) amlodipine 2.5 mg tablet 2.5 mg PO DAILY 05/19/22 05/19/22 History levothyroxine 75 mcg tablet 75 mcg PO DAILY 05/19/22 05/19/22 History metoprolol succinate 25 mg 25 mg PO DAILY 05/19/22 05/19/22 History tablet,extended release 24 hr Patient History Medical History Asthma Diabetes mellitus type 2 with complications Diverticulitis Dyslipidemia GI bleed Hemorrhoid Hypothyroidism PSVT (paroxysmal supraventricular tachycardia) Stroke Surgical History (Updated 05/19/22 @ 16:11 by Michaela Crow PA-C) History of left knee replacement Hx of colonoscopy Hx of esophagogastroduodenoscopy Hx of hysterectomy Family History (Updated 12/02/19 @ 13:32 by Alexis Armendariz PA-C) Other Family history non-contributory Social History Smoking Status: Never smoker Hx Alcohol Use: No Hx Substance Use: No Preferred Language: [place]ijani Communication Ability: Impaired Communication Ability Comment: Pt said her son understands everything that she does not Grocery Packer Required: No Beliefs That Will Affect Care: None marital status: / Current Living Situation: Family Current Living Situation Comment: Home with son Feels Safe at Home: Yes Safety Concerns: Feels Safe At This Time Assistive Devices: Walker Assistive Devices Comment: States that she cannot get up without walker Results & Data Vital Signs (Past 12 Hours) Vital Signs Temp Pulse Pulse Resp BP Pulse Ox O2 Del Method 05/20/22 09:02 78 130/70 05/20/22 07:57 75 05/20/22 07:24 36.8 C 73 18 135/68 97 Nasal Cannula 05/20/22 03:57 36.4 C L 83 16 121/69 95 Nasal Cannula 05/19/22 23:13 36.5 C 72 16 103/65 97 Nasal Cannula O2 Flow Rate 05/20/22 09:02 05/20/22 07:57 05/20/22 07:24 2 05/20/22 03:57 1.0 05/19/22 23:13 2.0 (1) Altered mental status Altered mental status type: delirium Qualified Code(s): R41.0 - Disorientation, unspecified
[2022-05-20 10:44] LABS: Hematocrit (blood only) 32.8 % (37.0-47.0); Hemoglobin 10.6 g/dl (12.0-16.0); Mean Corpuscular Hemoglobin 32.4 pg (25.0-34.0); Mean Corpuscular Hgb Conc 32.3 g/dL (32.0-36.0); Mean Corpuscular Volume 100.3 fL (80.0-100.0); Mean Platelet Volume 9.7 fL (9.4-12.4); Platelet Count 126 K/uL (130-400); RDW Standard Deviation 51.1 fL (36.4-46.3); Red Blood Count 3.27 M/uL (4.20-5.40)
[2022-05-20 11:12] LABS: BUN Creatinine Ratio 18.2 (10-20); Calcium 7.5 mg/dl (8.5-10.1); Chol HDL Ratio 3.4 (0-5); Creatinine Clr Calc Pharmacy 45.3 ml/min; Est GFR (African American) 90.8 ml/min; Est GFR (Non-African American) 78.3 ml/min; Magnesium 2.1 mg/dl (1.7-2.4); Phosphorus 2.5 mg/dl (2.5-4.9); Potassium 4.3 mmol/L (3.5-5.1)
[2022-05-20 12:26] LABS: Estimated Average Glucose 171 mg/dl; Hemoglobin A1C 7.6 % (4.5-5.6)
[2022-05-20] MEDS: guaiFENesin 600 MG TABCR PO SCH ×3 (16:14→20:37)
[2022-05-20] MEDS: SODIUM CHLORIDE 0.9% 500 ML IV SCH ×2 (16:58→23:40)
[2022-05-20] MEDS: rOPINIRole HCL 0.25 MG TABLET PO SCH (20:36)
[2022-05-20] MEDS: traZODone HCL 100 MG TAB PO SCH (20:37)
--- NOTE | 2022-05-20 22:32 | XCELERA ---
[id number]
[2022-05-20] MEDS: SODIUM CHLORIDE 0.9% 1000ML 1,000 ML IV SCH (23:36)
[2022-05-21] MEDS: CEFEPIME 1,000 MG in SYRINGE 0 ML IV SCH ×2 (02:25→14:01)
[2022-05-21] MEDS: ASPIRIN 81 MG ECTAB PO SCH (08:29)
[2022-05-21] MEDS: CHOLECALCIFEROL 1,000 UNITS 25 MCG TAB PO SCH (08:29)
[2022-05-21] MEDS: INSULIN ASPART PER UNIT CHARGE SC SCH ×4 (08:29→20:14)
[2022-05-21] MEDS: ATORVASTATIN 40 MG TAB PO SCH (08:29)
[2022-05-21] MEDS: METOPROLOL SUCC 25MG EXT REL TAB PO SCH (08:29)
[2022-05-21] MEDS: CYANOCOBALAMIN (B-12) 500 MCG TABLET PO SCH (08:29)
[2022-05-21] MEDS: PANTOprazole 40 MG TAB PO SCH (08:30)
[2022-05-21] MEDS: guaiFENesin 600 MG TABCR PO SCH ×2 (08:30→20:09)
[2022-05-21] MEDS: HEPARIN SOD 5,000 UNIT/0.5 ML VIAL SQ SCH ×2 (08:30→20:09)
[2022-05-21] MEDS: LEVOTHYROXINE SODIUM 75 MCG TABLET PO SCH (08:30)
[2022-05-21] MEDS: SODIUM CHLORIDE 0.9% 1000ML 1,000 ML IV SCH (11:50)
--- NOTE | 2022-05-21 13:48 | Hospitalist Progress Note ---
Date of Service May 21, 2022 Assessment & Plan (1) Altered mental status: (2) Weakness: Plan: -Admitted to PCU - Stroke order set completed, no indication for thrombolytic - CT head reviewed and is negative - MRI brain wo contrast - negative - Continue aspirin and atorvastatin - ? poss. TIA - Neurology consulted- as no cva on mri and normal phys. exam, signed off - PT/OT consults placed - Fall precautions - TSH 6.1 mildly up - A1c 7.6% and lipid panel ordered, TG 187, CH 105, LDL 37 Electrolyte abnormalities -Mag is 1.6 on admission -Potassium 3.4 - replace and monitor electrolytes (3) Fever: Plan: -Concern for underlying UTI on admission, UA appears fairly clean, await urine culture -Follow blood cultures x2 - negat. in 24 hrs -IV cefepime started in the ER, continue -WBC 6.03, Tmax 38.2 C on admission -CT of the abdomen pelvis showing possible underlying cystitis - loose stools noted in ED and this AM - stool PCR ordered, sample uncollected (4) PSVT (paroxysmal supraventricular tachycardia): (5) Dyslipidemia: Plan: - Last echo from Nov showing EF of 50-55%, LVH is mild - Checked lipids, increase atorvastatin to 80 mg secondary to possible CVA as above for plaque stabilization (6) Asthma: Plan: -Mild, stable, does not use inhalers at baseline -Does not use supplemental O2 at baseline, on admission requiring 2 L with O2 sats at 97%, wean as tolerated, noted to be 88% upon arrival to the ER -COVID, RSV and flu swabs are negative -CXR on admission reviewed and negative -encourage incentive spirometry (7) Hypothyroidism: Plan: - TSH 6, continue levothyroxine 100 mcg daily -Patient's son reports that her PCP recently changed her to take this at noon DVT PPx: - teds, scds, placed on heparin subcu CODE: DNR/DNI Dispo: From home, likely to remain in the hospital x 1-2 days Admission and Anticipated Discharge Date Admission Date: May 19, 2022 Subjective Patient seen in follow-up of weakness, word finding difficulty, difficulty with ambulation, and fever in ED Loose stool also noted in ED and yesterday morning. Stool PCR ordered, sample uncollected. Patient was started on empiric cefepime on admission. Brain MRI negative. Neurology signed off. Currently patient sitting up in chair, in no distress. Denies any complaints. Some areas at the bedside, and updated. He is concerned about her ambulation, says that she needs to be back to normal for her to go back home. Review of Systems Review of Systems: All systems reviewed & are unremarkable except as noted in Subjective Physical Exam Physical Exam: General: Elderly frail F, in NAD Head: Normocephalic, atraumatic ENT: PERRL, EOMI, mucous membranes moist Chest: Clear to auscultation, no adventitious breath sounds Cardiac: Regular rate and rhythm, no murmur Abdominal: NABS x 4 quadrants, soft, nondistended, nontender to palpation, no re bound or guarding : Shaw catheter in place draining yellow urine Extremities: Normal inspection, no peripheral edema or erythema Psych: Normal mood and affect Skin: dry, warm, no erythema, or rash Neuro: Awake and alert, able to answer simple questions appropriately. speech is slow but fluent, no facial asymmetry noted, patient moves extremities Results & Data Results & Data Vital Signs (Past 12 Hours) Vital Signs Temp Pulse Pulse Resp BP Pulse Ox O2 Del Method 05/21/22 11:11 36.8 C 64 18 128/68 99 Nasal Cannula 05/21/22 08:00 65 05/21/22 08:00 Nasal Cannula 05/21/22 07:01 36.9 C 68 17 136/70 98 Room Air 05/21/22 02:21 36.4 C L 68 18 131/75 98 Nasal Cannula O2 Flow Rate 05/21/22 11:11 2 05/21/22 08:00 05/21/22 08:00 2 05/21/22 07:01 05/21/22 02:21 2 Laboratory Results 05/21/22 05/21/22 05/21/22 Range/Units 14:13 14:12 11:13 WBC 4.82 (4.8-10.8) K/ul RBC 3.23 L (4.20-5.40) M/uL Hgb 10.4 L (12.0-16.0) g/dl Hct 32.3 L (37.0-47.0) % MCV 100.0 (80.0-100.0) fL MCH 32.2 (25.0-34.0) pg MCHC 32.2 (32.0-36.0) g/dL RDW Std Deviation 52.1 H (36.4-46.3) fL RDW Coeff of Caroline 14.0 (11.5-14.5) % Plt Count 143 (130-400) K/uL MPV 9.9 (9.4-12.4) fL Sodium Pending Potassium Pending Chloride Pending Carbon Dioxide Pending Anion Gap Pending BUN Pending Creatinine Pending Est Cr Clr Drug Dosing Pending Est GFR ( Amer) Pending Est GFR (Non-Af Amer) Pending BUN/Creatinine Ratio Pending Glucose Pending POC Glucose 160 H (70-99) mg/dl Calcium Pending Phosphorus Pending Magnesium Pending 05/21/22 05/20/22 05/20/22 Range/Units 07:26 20:04 16:17 WBC (4.8-10.8) K/ul RBC (4.20-5.40) M/uL Hgb (12.0-16.0) g/dl Hct (37.0-47.0) % MCV (80.0-100.0) fL MCH (25.0-34.0) pg MCHC (32.0-36.0) g/dL RDW Std Deviation (36.4-46.3) fL RDW Coeff of Caroline (11.5-14.5) % Plt Count (130-400) K/uL MPV (9.4-12.4) fL Sodium Potassium Chloride Carbon Dioxide Anion Gap BUN Creatinine Est Cr Clr Drug Dosing Est GFR ( Amer) Est GFR (Non-Af Amer) BUN/Creatinine Ratio Glucose POC Glucose 131 H 147 H 109 H (70-99) mg/dl Calcium Phosphorus Magnesium Medications Administered Current Inpatient Medications Acetaminophen (Acetaminophen 325 Mg Tab) 650 mg PO Q4H PRN PRN Reason: Moderate Pain (Scale 4, 5, 6) Stop: 06/18/22 19:37 Aspirin (Aspirin 81 Mg Ectab) 81 mg PO DAILY [facility] Stop: 06/19/22 08:59 Last Admin: 05/21/22 08:29 Dose: 81 mg Atorvastatin Calcium ([facility]atin 40 Mg Tab) [facility] [place]: 06/19/22 08:59 Last Admin: 05/21/22 08:29 Dose: 80 mg Cyanocobalamin (Cyanocobalamin (B-12) 500 Mcg Tablet) 1,000 mcg PO DAILY [facility] Stop: 06/19/22 08:59 Last Admin: 05/21/22 08:29 Dose: 1,000 mcg Dextrose (Dextrose 50% 50 Ml Syringe) 25 - 50 ml IV UD PRN; Protocol PRN Reason: Hypoglycemia Protocol Stop: 06/18/22 21:14 Glucagon (Glucagon For Inj 1 Mg Vial) 1 mg SQ UD PRN; Protocol PRN Reason: Hypoglycemia Protocol Stop: 06/18/22 21:14 Glucose (Glucose 10 Tab/Tube) 4 - 8 tab PO UD PRN; Protocol PRN Reason: Hypoglycemia Treatment Stop: 06/18/22 21:14 Glucose (Glucose 40% Gel 15 Gm Tube) 15 - 30 gm PO UD PRN; Protocol PRN Reason: Hypoglycemia Protocol Stop: 06/18/22 21:14 Guaifenesin (Guaifenesin 600 Mg Tabcr) 600 mg PO Q12 [facility] Stop: 06/19/22 16:04 Last Admin: 05/21/22 08:30 Dose: 600 mg Heparin Sodium (Porcine) (Heparin Sod 5,000 Unit/0.5 Ml Vial) 5,000 units SQ Q12 [facility] Stop: 06/18/22 20:59 Last Admin: 05/21/22 08:30 Dose: 5,000 units Cefepime HCl 1,000 mg/ Syringe 10 mls @ 5 mls/min IV Q12H [facility]; Protocol Stop: 05/25/22 02:14 Last Admin: 05/21/22 02:25 Dose: 5 mls/min Sodium Chloride (Nss 1000ml) 1,000 mls @ 80 mls/hr IV .[id number] [facility] Stop: 06/19/22 23:23 Last Infusion: 05/21/22 13:38 Dose: 0 mls/hr Insulin Aspart (Insulin Aspart Per Unit) 0 units SC ACHS [facility] Stop: 06/19/22 07:29 Last Admin: 05/21/22 11:50 Dose: 1 units Levothyroxine Sodium (Levothyroxine Sodium 75 Mcg Tablet) 75 mcg PO DAILY [facility] Stop: 06/19/22 08:59 Last Admin: 05/21/22 08:30 Dose: 75 mcg Metoprolol Succinate (Metoprolol Succ 25mg Ext Rel Tab) 25 mg PO DAILY [facility] Stop: 06/19/22 08:59 Last Admin: 05/21/22 08:29 Dose: 25 mg Miscellaneous (Carbohydrates For Hypoglycemia ) 15 - 30 gm PO UD PRN PRN Reason: Hypoglycemia Protocol Stop: 06/18/22 21:14 Ondansetron HCl (Ondansetron Inj 2 Mg/Ml 2 Ml Vial) 4 mg IV Q4H PRN PRN Reason: Nausea And Vomiting Stop: 06/18/22 19:37 Pantoprazole Sodium (Pantoprazole 40 Mg Tab) 40 mg PO DAILY [facility] Stop: 06/19/22 08:59 Last Admin: 05/21/22 08:30 Dose: 40 mg Ropinirole HCl (Ropinirole Hcl 0.25 Mg Tablet) 0.5 mg PO QPM [facility] Stop: 06/18/22 20:59 Last Admin: 05/20/22 20:36 Dose: 0.5 mg Trazodone HCl (Trazodone Hcl 100 Mg Tab) 100 mg PO QPM [facility] Stop: 06/18/22 20:59 Last Admin: 05/20/22 20:37 Dose: 100 mg Vitamin D (Cholecalciferol 1,000 Units 25 Mcg Tab) 1,000 units PO DAILY [facility] Stop: 06/19/22 08:59 Last Admin: 05/21/22 08:29 Dose: 1,000 units (1) Altered mental status Altered mental status type: unspecified Qualified Code(s): R41.82 - Altered mental status, unspecified
[2022-05-21 14:31] LABS: Hematocrit (blood only) 32.3 % (37.0-47.0); Hemoglobin 10.4 g/dl (12.0-16.0); Mean Corpuscular Hemoglobin 32.2 pg (25.0-34.0); Mean Corpuscular Hgb Conc 32.2 g/dL (32.0-36.0); Mean Platelet Volume 9.9 fL (9.4-12.4); Platelet Count 143 K/uL (130-400); RDW Standard Deviation 52.1 fL (36.4-46.3); Red Blood Count 3.23 M/uL (4.20-5.40); White Blood Count 4.82 K/ul (4.8-10.8)
[2022-05-21 14:57] LABS: BUN Creatinine Ratio 19.7 (10-20); Calcium 8.3 mg/dl (8.5-10.1); Creatinine Clr Calc Pharmacy 42.1 ml/min; Est GFR (African American) 87.5 ml/min; Est GFR (Non-African American) 75.5 ml/min; Phosphorus 2.1 mg/dl (2.5-4.9); Potassium 4.2 mmol/L (3.5-5.1)
[2022-05-21] MEDS ORDERED: ALBUTEROL HFA 8 GM INHALER INH ONE (17:15)
[2022-05-21] MEDS: rOPINIRole HCL 0.25 MG TABLET PO SCH (20:09)
[2022-05-21] MEDS: traZODone HCL 100 MG TAB PO SCH (20:09)
--- NOTE | 2022-05-21 23:41 | Electrocardiogram Report ---
Test Reason : Blood Pressure : / mmHG Vent. Rate : 086 BPM Atrial Rate : 086 BPM P-R Int : 182 ms QRS Dur : 134 ms QT Int : 406 ms P-R-T Axes : 116 -38 136 degrees QTc Int : 485 ms Poor data quality, interpretation may be adversely affected Normal sinus rhythm Left axis deviation Left bundle branch block Abnormal ECG When compared with ECG of 04-DEC-2019 06:46, No significant change was found Confirmed by Pee Clement ([id number]) on 05/21/2022 11:40:59 PM Referred By: REFERRED SELF Confirmed By:Pee Clement
[2022-05-22] MEDS: CEFEPIME 1,000 MG in SYRINGE 0 ML IV SCH ×2 (02:05→14:57)
[2022-05-22 07:36] LABS: Hematocrit (blood only) 32.8 % (37.0-47.0); Hemoglobin 10.7 g/dl (12.0-16.0); Mean Corpuscular Hemoglobin 32.1 pg (25.0-34.0); Mean Corpuscular Hgb Conc 32.6 g/dL (32.0-36.0); Mean Corpuscular Volume 98.5 fL (80.0-100.0); Mean Platelet Volume 9.6 fL (9.4-12.4); Platelet Count 144 K/uL (130-400); RDW Coefficient of Variation 13.9 % (11.5-14.5); RDW Standard Deviation 50.7 fL (36.4-46.3); Red Blood Count 3.33 M/uL (4.20-5.40); White Blood Count 4.86 K/ul (4.8-10.8)
[2022-05-22] MEDS: HEPARIN SOD 5,000 UNIT/0.5 ML VIAL SQ SCH ×3 (08:00→21:52)
[2022-05-22] MEDS: METOPROLOL SUCC 25MG EXT REL TAB PO SCH (08:00)
[2022-05-22] MEDS: CHOLECALCIFEROL 1,000 UNITS 25 MCG TAB PO SCH (08:00)
[2022-05-22] MEDS: LEVOTHYROXINE SODIUM 75 MCG TABLET PO SCH (08:00)
[2022-05-22] MEDS: guaiFENesin 600 MG TABCR PO SCH ×2 (08:00→21:51)
[2022-05-22] MEDS: INSULIN ASPART PER UNIT CHARGE SC SCH ×5 (08:00→21:50)
[2022-05-22] MEDS: ATORVASTATIN 40 MG TAB PO SCH (08:00)
[2022-05-22] MEDS: PANTOprazole 40 MG TAB PO SCH (08:01)
[2022-05-22] MEDS: ASPIRIN 81 MG ECTAB PO SCH (08:01)
[2022-05-22] MEDS: CYANOCOBALAMIN (B-12) 500 MCG TABLET PO SCH (08:01)
[2022-05-22 08:02] LABS: BUN Creatinine Ratio 17.9 (10-20); Calcium 8.3 mg/dl (8.5-10.1); Creatinine Clr Calc Pharmacy 44.8 ml/min; Est GFR (African American) 90.3 ml/min; Est GFR (Non-African American) 77.9 ml/min; Magnesium 1.9 mg/dl (1.7-2.4); Phosphorus 2.2 mg/dl (2.5-4.9); Potassium 3.8 mmol/L (3.5-5.1)
--- NOTE | 2022-05-22 12:21 | Hospitalist Progress Note ---
Date of Service May 22, 2022 Assessment & Plan (1) Altered mental status: (2) Weakness: Plan: -Admitted to PCU - Stroke order set completed, no indication for thrombolytic - CT head reviewed and is negative - MRI brain wo contrast - negative - Continue aspirin and atorvastatin - ? poss. TIA - Neurology consulted- as no cva on mri and normal phys. exam, signed off - PT/OT consults placed - Fall precautions - TSH 6.1 mildly up - A1c 7.6% and lipid panel ordered, TG 187, CH 105, LDL 37 Electrolyte abnormalities -Mag is 1.6 on admission -Potassium 3.4 - replace and monitor electrolytes (3) Fever: Plan: -Concern for underlying UTI on admission, UA appears fairly clean, await urine culture -Follow blood cultures x2 - negat. in 24 hrs -IV cefepime started in the ER, continue -WBC 6.03, Tmax 38.2 C on admission -CT of the abdomen pelvis showing possible underlying cystitis - loose stools noted in ED and next AM - stool PCR ordered, sample uncollected (4) PSVT (paroxysmal supraventricular tachycardia): (5) Dyslipidemia: Plan: - Last echo from Nov showing EF of 50-55%, LVH is mild - Checked lipids, increase atorvastatin to 80 mg secondary to possible CVA as above for plaque stabilization (6) Asthma: Plan: -Mild, stable, does not use inhalers at baseline -Does not use supplemental O2 at baseline, on admission requiring 2 L with O2 sats at 97%, wean as tolerated, noted to be 88% upon arrival to the ER -COVID, RSV and flu swabs are negative -CXR on admission reviewed and negative -encourage incentive spirometry - per RT, pt ambulated in hallway and was saturating 95% on RA. Per RN, pt needing 1l of O2. Pt may need step 2 prior to DC. (7) Hypothyroidism: Plan: - TSH 6, continue levothyroxine 100 mcg daily -Patient's son reports that her PCP recently changed her to take this at noon DVT PPx: - teds, scds, placed on heparin subcu CODE: DNR/DNI Dispo: From home, likely to remain in the hospital x 1-2 days Admission and Anticipated Discharge Date Admission Date: May 19, 2022 Subjective Patient seen in follow-up of weakness, word finding difficulty, difficulty with ambulation, and fever in ED Loose stool also noted in ED and next morning. Stool PCR ordered, sample uncollected. Patient was started on empiric cefepime on admission. Brain MRI negative. Neurology signed off. Currently patient sitting is laying in bed in no distress. Denies any co mplaints. Son present at the bedside, and updated. He is concerned about her ambulation, says that she needs to be back to normal for her to go back home. Asked INFORMATION MANAGER to ambulate patient, and RT to check on oxygen. Per report, patient was ambulating and saturating 95% on room air. Review of Systems Review of Systems: All systems reviewed & are unremarkable except as noted in Subjective Physical Exam Physical Exam: General: Elderly frail F, in NAD Head: Normocephalic, atraumatic ENT: PERRL, EOMI, mucous membranes moist Chest: Clear to auscultation but somewhat diminished, no adventitious breath sounds Cardiac: Regular rate and rhythm, no murmur Abdominal: NABS x 4 quadrants, soft, nondistended, nontender to palpation, no rebound or guarding Extremities: Normal inspection, no peripheral edema or erythema Psych: Normal mood and affect Skin: dry, warm, no erythema, or rash Neuro: Awake and alert, able to answer simple questions appropriately. speech is slow but fluent, no facial asymmetry noted, patient moves extremities Results & Data Results & Data Vital Signs (Past 12 Hours) Vital Signs Temp Pulse Pulse Resp BP Pulse Ox O2 Del Method 05/22/22 11:15 36.6 C 70 18 137/73 97 Nasal Cannula 05/22/22 11:05 95 Nasal Cannula 05/22/22 11:03 85 L Room Air 05/22/22 08:00 83 L Room Air 05/22/22 07:24 36.6 C 76 18 162/76 H 93 Nasal Cannula 05/22/22 07:19 63 05/22/22 02:56 37.3 C 75 17 150/69 H 92 Nasal Cannula 05/22/22 00:29 62 O2 Flow Rate 05/22/22 11:15 1 05/22/22 11:05 1 05/22/22 11:03 05/22/22 08:00 05/22/22 07:24 1 05/22/22 07:19 05/22/22 02:56 1 05/22/22 00:29 Laboratory Results 05/22/22 05/22/22 05/22/22 Range/Units 11:18 07:16 07:16 WBC 4.86 (4.8-10.8) K/ul RBC 3.33 L (4.20-5.40) M/uL Hgb 10.7 L (12.0-16.0) g/dl Hct 32.8 L (37.0-47.0) % MCV 98.5 (80.0-100.0) fL MCH 32.1 (25.0-34.0) pg MCHC 32.6 (32.0-36.0) g/dL RDW Std Deviation 50.7 H (36.4-46.3) fL RDW Coeff of Caroline 13.9 (11.5-14.5) % Plt Count 144 (130-400) K/uL MPV 9.6 (9.4-12.4) fL Sodium 137 (136-145) mmol/L Potassium 3.8 (3.5-5.1) mmol/L Chloride 103 (98-107) mmol/L Carbon Dioxide 31 (21-32) mmol/L Anion Gap 3 (3-11) BUN 12 (6-23) mg/dl Creatinine 0.67 (0.6-1.2) mg/dl Est Cr Clr Drug Dosing 44.8 ml/min Est GFR ( Amer) 90.3 ml/min Est GFR (Non-Af Amer) 77.9 ml/min BUN/Creatinine Ratio 17.9 (10-20) Glucose 131 H (70-99(Fasting)) mg/dl POC Glucose 150 H (70-99) mg/dl Calcium 8.3 L (8.5-10.1) mg/dl Phosphorus 2.2 L (2.5-4.9) mg/dl Magnesium 1.9 (1.7-2.4) mg/dl 05/22/22 05/21/22 05/21/22 Range/Units 07:07 20:12 16:04 WBC (4.8-10.8) K/ul RBC (4.20-5.40) M/uL Hgb (12.0-16.0) g/dl Hct (37.0-47.0) % MCV (80.0-100.0) fL MCH (25.0-34.0) pg MCHC (32.0-36.0) g/dL RDW Std Deviation (36.4-46.3) fL RDW Coeff of Caroline (11.5-14.5) % Plt Count (130-400) K/uL MPV (9.4-12.4) fL Sodium (136-145) mmol/L Potassium (3.5-5.1) mmol/L Chloride (98-107) mmol/L Carbon Dioxide (21-32) mmol/L Anion Gap (3-11) BUN (6-23) mg/dl Creatinine (0.6-1.2) mg/dl Est Cr Clr Drug Dosing ml/min Est GFR ( Amer) ml/min Est GFR (Non-Af Amer) ml/min BUN/Creatinine Ratio (10-20) Glucose (70-99(Fasting)) mg/dl POC Glucose 132 H 137 H 135 H (70-99) mg/dl Calcium (8.5-10.1) mg/dl Phosphorus (2.5-4.9) mg/dl Magnesium (1.7-2.4) mg/dl 05/21/22 05/21/22 Range/Units 14:13 14:12 WBC 4.82 (4.8-10.8) K/ul RBC 3.23 L (4.20-5.40) M/uL Hgb 10.4 L (12.0-16.0) g/dl Hct 32.3 L (37.0-47.0) % MCV 100.0 (80.0-100.0) fL MCH 32.2 (25.0-34.0) pg MCHC 32.2 (32.0-36.0) g/dL RDW Std Deviation 52.1 H (36.4-46.3) fL RDW Coeff of Caroline 14.0 (11.5-14.5) % Plt Count 143 (130-400) K/uL MPV 9.9 (9.4-12.4) fL Sodium 134 L (136-145) mmol/L Potassium 4.2 (3.5-5.1) mmol/L Chloride 105 (98-107) mmol/L Carbon Dioxide 26 (21-32) mmol/L Anion Gap 3 (3-11) BUN 14 (6-23) mg/dl Creatinine 0.71 (0.6-1.2) mg/dl Est Cr Clr Drug Dosing 42.1 ml/min Est GFR ( Amer) 87.5 ml/min Est GFR (Non-Af Amer) 75.5 ml/min BUN/Creatinine Ratio 19.7 (10-20) Glucose 136 H (70-99(Fasting)) mg/dl POC Glucose (70-99) mg/dl Calcium 8.3 L (8.5-10.1) mg/dl Phosphorus 2.1 L (2.5-4.9) mg/dl Magnesium 2.0 (1.7-2.4) mg/dl Medications Administered Current Inpatient Medications Acetaminophen (Acetaminophen 325 Mg Tab) 650 mg PO Q4H PRN PRN Reason: Moderate Pain (Scale 4, 5, 6) Stop: 06/18/22 19:37 Aspirin (Aspirin 81 Mg Ectab) 81 mg PO DAILY [facility] Stop: 06/19/22 08:59 Last Admin: 05/22/22 08:01 Dose: 81 mg Atorvastatin Calcium (Atorvastatin 40 Mg Tab) 80 mg PO QAM [facility] Stop: 06/19/22 08:59 Last Admin: 05/22/22 08:00 Dose: 80 mg Cyanocobalamin (Cyanocobalamin (B-12) 500 Mcg Tablet) 1,000 mcg PO DAILY [facility] Stop: 06/19/22 08:59 Last Admin: 05/22/22 08:01 Dose: 1,000 mcg Dextrose (Dextrose 50% 50 Ml Syringe) 25 - 50 ml IV UD PRN; Protocol PRN Reason: Hypoglycemia Protocol Stop: 06/18/22 21:14 Glucagon (Glucagon For Inj 1 Mg Vial) 1 mg SQ UD PRN; Protocol PRN Reason: Hypoglycemia Protocol Stop: 06/18/22 21:14 Glucose (Glucose 10 Tab/Tube) 4 - 8 tab PO UD PRN; Protocol PRN Reason: Hypoglycemia Treatment Stop: 06/18/22 21:14 Glucose (Glucose 40% Gel 15 Gm Tube) 15 - 30 gm PO UD PRN; Protocol PRN Reason: Hypoglycemia Protocol Stop: 06/18/22 21:14 Guaifenesin (Guaifenesin 600 Mg Tabcr) 600 mg PO Q12 [facility] Stop: 06/19/22 16:04 Last Admin: 05/22/22 08:00 Dose: 600 mg Heparin Sodium (Porcine) (Heparin Sod 5,000 Unit/0.5 Ml Vial) 5,000 units SQ Q12 [facility] Stop: 06/18/22 20:59 Last Admin: 05/22/22 09:00 Dose: Not Given Cefepime HCl 1,000 mg/ Syringe 10 mls @ 5 mls/min IV Q12H [facility]; Protocol Stop: 05/25/22 02:14 Last Admin: 05/22/22 02:05 Dose: 5 mls/min Sodium Chloride (Nss 1000ml) 1,000 mls @ 80 mls/hr IV .[id number] [facility] Stop: 06/19/22 23:23 Last Infusion: 05/21/22 13:38 Dose: 0 mls/hr Insulin Aspart (Insulin Aspart Per Unit) 0 units SC ACHS [facility] Stop: 06/19/22 07:29 Last Admin: 05/22/22 11:57 Dose: 2 units Levothyroxine Sodium (Levothyroxine Sodium 75 Mcg Tablet) 75 mcg PO DAILY [facility] Stop: 06/19/22 08:59 Last Admin: 05/22/22 08:00 Dose: 75 mcg Metoprolol Succinate (Metoprolol Succ 25mg Ext Rel Tab) 25 mg PO DAILY [facility] Stop: 06/19/22 08:59 Last Admin: 05/22/22 08:00 Dose: 25 mg Miscellaneous (Carbohydrates For Hypoglycemia ) 15 - 30 gm PO UD PRN PRN Reason: Hypoglycemia Protocol Stop: 06/18/22 21:14 Ondansetron HCl (Ondansetron Inj 2 Mg/Ml 2 Ml Vial) 4 mg IV Q4H PRN PRN Reason: Nausea And Vomiting Stop: 06/18/22 19:37 Pantoprazole Sodium (Pantoprazole 40 Mg Tab) 40 mg PO DAILY [facility] Stop: 06/19/22 08:59 Last Admin: 05/22/22 08:01 Dose: 40 mg Ropinirole HCl (Ropinirole Hcl 0.25 Mg Tablet) 0.5 mg PO QPM [facility] Stop: 06/18/22 20:59 Last Admin: 05/21/22 20:09 Dose: 0.5 mg Trazodone HCl (Trazodone Hcl 100 Mg Tab) 100 mg PO QPM [facility] Stop: 06/18/22 20:59 Last Admin: 05/21/22 20:09 Dose: 100 mg Vitamin D (Cholecalciferol 1,000 Units 25 Mcg Tab) 1,000 units PO DAILY [facility] Stop: 06/19/22 08:59 Last Admin: 05/22/22 08:00 Dose: 1,000 units (1) Altered mental status Altered mental status type: unspecified Qualified Code(s): R41.82 - Altered mental status, unspecified
[2022-05-22] MEDS: rOPINIRole HCL 0.25 MG TABLET PO SCH (21:51)
[2022-05-22] MEDS: traZODone HCL 100 MG TAB PO SCH (21:51)
[2022-05-23] MEDS: CEFEPIME 1,000 MG in SYRINGE 0 ML IV SCH ×2 (02:26→14:19)
[2022-05-23 06:56] LABS: Hematocrit (blood only) 31.1 % (37.0-47.0); Hemoglobin 10.5 g/dl (12.0-16.0); Mean Corpuscular Hemoglobin 32.2 pg (25.0-34.0); Mean Corpuscular Hgb Conc 33.8 g/dL (32.0-36.0); Mean Corpuscular Volume 95.4 fL (80.0-100.0); Mean Platelet Volume 10.1 fL (9.4-12.4); Platelet Count 152 K/uL (130-400); RDW Coefficient of Variation 13.4 % (11.5-14.5); RDW Standard Deviation 47.3 fL (36.4-46.3); Red Blood Count 3.26 M/uL (4.20-5.40)
[2022-05-23 07:25] LABS: BUN Creatinine Ratio 17.5 (10-20); Calcium 8.6 mg/dl (8.5-10.1); Creatinine Clr Calc Pharmacy 52.1 ml/min; Est GFR (African American) 95.3 ml/min; Est GFR (Non-African American) 82.2 ml/min; Magnesium 1.8 mg/dl (1.7-2.4); Phosphorus 2.5 mg/dl (2.5-4.9); Potassium 3.4 mmol/L (3.5-5.1)
[2022-05-23] MEDS: LEVOTHYROXINE SODIUM 75 MCG TABLET PO SCH (07:52)
[2022-05-23] MEDS: METOPROLOL SUCC 25MG EXT REL TAB PO SCH (07:52)
[2022-05-23] MEDS: CYANOCOBALAMIN (B-12) 500 MCG TABLET PO SCH (07:52)
[2022-05-23] MEDS: HEPARIN SOD 5,000 UNIT/0.5 ML VIAL SQ SCH (07:54)
[2022-05-23] MEDS: CHOLECALCIFEROL 1,000 UNITS 25 MCG TAB PO SCH (07:54)
[2022-05-23] MEDS: ASPIRIN 81 MG ECTAB PO SCH (07:54)
[2022-05-23] MEDS: ATORVASTATIN 40 MG TAB PO SCH (07:55)
[2022-05-23] MEDS: guaiFENesin 600 MG TABCR PO SCH (07:55)
[2022-05-23] MEDS: PANTOprazole 40 MG TAB PO SCH (07:55)
--- NOTE | 2022-05-23 08:06 | Hospitalist Progress Note ---
Date of Service May 23, 2022 Assessment & Plan (1) Altered mental status: (2) Weakness: Plan: -Admitted to PCU - Stroke order set completed, no indication for thrombolytic - CT head reviewed and is negative - MRI brain wo contrast - negative - Continue aspirin and atorvastatin - ? poss. TIA - Neurology consulted- as no cva on mri and normal phys. exam, signed off - PT/OT consults placed - Fall precautions - TSH 6.1 mildly up - A1c 7.6% and lipid panel ordered, TG 187, CH 105, LDL 37 Electrolyte abnormalities -Mag is 1.6 on admission -Potassium 3.4 - replace and monitor electrolytes (3) Fever: Plan: -Concern for underlying UTI on admission, u cultx - negative -Follow blood cultures x2 - negat. in 24 hrs -IV cefepime started in the ER, continued -WBC 6.03, Tmax 38.2 C on admission -CT of the abdomen pelvis showing possible underlying cystitis - loose stools noted in ED and next AM - stool PCR ordered, sample uncollected (4) PSVT (paroxysmal supraventricular tachycardia): (5) Dyslipidemia: Plan: - Last echo from Nov showing EF of 50-55%, LVH is mild - Checked lipids, increase atorvastatin to 80 mg secondary to possible CVA as above for plaque stabilization (6) Asthma: Plan: -Mild, stable, does not use inhalers at baseline -Does not use supplemental O2 at baseline, on admission requiring 2 L with O2 sats at 97%, wean as tolerated, noted to be 88% upon arrival to the ER -COVID, RSV and flu swabs are negative -CXR on admission reviewed and negative -encourage incentive spirometry - per RT, pt ambulated in hallway and was saturating 95% on RA. Per RN, pt needing 1l of O2. -Will order step 2 prior to DC. (7) Hypothyroidism: Plan: - TSH 6, continue levothyroxine 100 mcg daily -Patient's son reports that her PCP recently changed her to take this at noon DVT PPx: - teds, scds, placed on heparin subcu CODE: DNR/DNI Dispo: From home, likely to remain in the hospital x 1-2 days Admission and Anticipated Discharge Date Admission Date: May 19, 2022 Subjective Patient seen in follow-up of weakness, word finding difficulty, difficulty with ambulation, and fever in ED Loose stool also noted in ED and next morning. Stool PCR ordered, sample uncollected. Patient was started on empiric cefepime on admission. Brain MRI negative. Neurology signed off. Currently patient is laying in bed in no distress. Denies any complaints. Review of Systems Review of Systems: All systems reviewed & are unremarkable except as noted in Subjective Physical Exam Physical Exam: General: Elderly frail F, in NAD Head: Normocephalic, atraumatic ENT: PERRL, EOMI, mucous membranes moist Chest: Clear to auscultation but somewhat diminished, no adventitious breath sounds Cardiac: Regular rate and rhythm, no murmur Abdominal: NABS x 4 quadrants, soft, nondistended, nontender to palpation, no rebound or guarding Extremities: Normal inspection, no peripheral edema or erythema Psych: Normal mood and affect Skin: dry, warm, no erythema, or rash Neuro: Awake and alert, able to answer simple questions appropriately. speech is fluent, no facial asymmetry noted, patient moves extremities Results & Data Results & Data Vital Signs (Past 12 Hours) Vital Signs Temp Pulse Pulse Resp BP Pulse Ox O2 Del Method 05/23/22 07:45 36.7 C 84 18 156/76 H 90 Room Air 05/22/22 22:00 75 05/23/22 07:16 59 L 05/23/22 03:07 36.8 C 74 18 164/74 H 93 Nasal Cannula 05/22/22 23:01 37.2 C 68 18 172/71 H 93 Nasal Cannula O2 Flow Rate 05/23/22 07:45 05/22/22 22:00 05/23/22 07:16 05/23/22 03:07 1 05/22/22 23:01 1 Laboratory Results 05/23/22 05/23/22 05/23/22 Range/Units 07:32 06:09 06:09 WBC 6.10 (4.8-10.8) K/ul RBC 3.26 L (4.20-5.40) M/uL Hgb 10.5 L (12.0-16.0) g/dl Hct 31.1 L (37.0-47.0) % MCV 95.4 (80.0-100.0) fL MCH 32.2 (25.0-34.0) pg MCHC 33.8 (32.0-36.0) g/dL RDW Std Deviation 47.3 H (36.4-46.3) fL RDW Coeff of Caroline 13.4 (11.5-14.5) % Plt Count 152 (130-400) K/uL MPV 10.1 (9.4-12.4) fL Sodium 139 (136-145) mmol/L Potassium 3.4 L (3.5-5.1) mmol/L Chloride 100 (98-107) mmol/L Carbon Dioxide 34 H (21-32) mmol/L Anion Gap 5 (3-11) BUN 10 (6-23) mg/dl Creatinine 0.57 L (0.6-1.2) mg/dl Est Cr Clr Drug Dosing 52.1 ml/min Est GFR ( Amer) 95.3 ml/min Est GFR (Non-Af Amer) 82.2 ml/min BUN/Creatinine Ratio 17.5 (10-20) Glucose 115 H (70-99(Fasting)) mg/dl POC Glucose 106 H (70-99) mg/dl Calcium 8.6 (8.5-10.1) mg/dl Phosphorus 2.5 (2.5-4.9) mg/dl Magnesium 1.8 (1.7-2.4) mg/dl 05/22/22 05/22/22 05/22/22 Range/Units 20:09 16:34 11:18 WBC (4.8-10.8) K/ul RBC (4.20-5.40) M/uL Hgb (12.0-16.0) g/dl Hct (37.0-47.0) % MCV (80.0-100.0) fL MCH (25.0-34.0) pg MCHC (32.0-36.0) g/dL RDW Std Deviation (36.4-46.3) fL RDW Coeff of Caroline (11.5-14.5) % Plt Count (130-400) K/uL MPV (9.4-12.4) fL Sodium (136-145) mmol/L Potassium (3.5-5.1) mmol/L Chloride (98-107) mmol/L Carbon Dioxide (21-32) mmol/L Anion Gap (3-11) BUN (6-23) mg/dl Creatinine (0.6-1.2) mg/dl Est Cr Clr Drug Dosing ml/min Est GFR ( Amer) ml/min Est GFR (Non-Af Amer) ml/min BUN/Creatinine Ratio (10-20) Glucose (70-99(Fasting)) mg/dl POC Glucose 151 H 141 H 150 H (70-99) mg/dl Calcium (8.5-10.1) mg/dl Phosphorus (2.5-4.9) mg/dl Magnesium (1.7-2.4) mg/dl Medications Administered Current Inpatient Medications Acetaminophen (Acetaminophen 325 Mg Tab) 650 mg PO Q4H PRN PRN Reason: Moderate Pain (Scale 4, 5, 6) Stop: 06/18/22 19:37 Aspirin (Aspirin 81 Mg Ectab) 81 mg PO DAILY [facility] Stop: 06/19/22 08:59 Last Admin: 05/22/22 08:01 Dose: 81 mg Atorvastatin Calcium (Atorvastatin 40 Mg Tab) 80 mg PO QAM [facility] Stop: 06/19/22 08:59 Last Admin: 05/22/22 08:00 Dose: 80 mg Cyanocobalamin (Cyanocobalamin (B-12) 500 Mcg Tablet) 1,000 mcg PO DAILY [facility] Stop: 06/19/22 08:59 Last Admin: 05/22/22 08:01 Dose: 1,000 mcg Dextrose (Dextrose 50% 50 Ml Syringe) 25 - 50 ml IV UD PRN; Protocol PRN Reason: Hypoglycemia Protocol Stop: 06/18/22 21:14 Glucagon (Glucagon For Inj 1 Mg Vial) 1 mg SQ UD PRN; Protocol PRN Reason: Hypoglycemia Protocol Stop: 06/18/22 21:14 Glucose (Glucose 10 Tab/Tube) 4 - 8 tab PO UD PRN; Protocol PRN Reason: Hypoglycemia Treatment Stop: 06/18/22 21:14 Glucose (Glucose 40% Gel 15 Gm Tube) 15 - 30 gm PO UD PRN; Protocol PRN Reason: Hypoglycemia Protocol Stop: 06/18/22 21:14 Guaifenesin (Guaifenesin 600 Mg Tabcr) 600 mg PO Q12 [facility] Stop: 06/19/22 16:04 Last Admin: 05/22/22 21:51 Dose: 600 mg Heparin Sodium (Porcine) (Heparin Sod 5,000 Unit/0.5 Ml Vial) 5,000 units SQ Q12 [facility] Stop: 06/18/22 20:59 Last Admin: 05/22/22 21:52 Dose: 5,000 units Cefepime HCl 1,000 mg/ Syringe 10 mls @ 5 mls/min IV Q12H [facility]; Protocol Stop: 05/25/22 02:14 Last Admin: 05/23/22 02:26 Dose: 5 mls/min Sodium Chloride (Nss 1000ml) 1,000 mls @ 80 mls/hr IV .[id number] [facility] Stop: 06/19/22 23:23 Last Infusion: 05/22/22 13:32 Dose: Infused Insulin Aspart (Insulin Aspart Per Unit) 0 units SC ACHS [facility] Stop: 06/19/22 07:29 Last Admin: 05/22/22 21:50 Dose: Not Given Levothyroxine Sodium (Levothyroxine Sodium 75 Mcg Tablet) 75 mcg PO DAILY [facility] Stop: 06/19/22 08:59 Last Admin: 05/22/22 08:00 Dose: 75 mcg Metoprolol Succinate (Metoprolol Succ 25mg Ext Rel Tab) 25 mg PO DAILY [facility] Stop: 06/19/22 08:59 Last Admin: 05/22/22 08:00 Dose: 25 mg Miscellaneous (Carbohydrates For Hypoglycemia ) 15 - 30 gm PO UD PRN PRN Reason: Hypoglycemia Protocol Stop: 06/18/22 21:14 Ondansetron HCl (Ondansetron Inj 2 Mg/Ml 2 Ml Vial) 4 mg IV Q4H PRN PRN Reason: Nausea And Vomiting Stop: 06/18/22 19:37 Pantoprazole Sodium (Pantoprazole 40 Mg Tab) 40 mg PO DAILY [facility] Stop: 06/19/22 08:59 Last Admin: 05/22/22 08:01 Dose: 40 mg Ropinirole HCl (Ropinirole Hcl 0.25 Mg Tablet) 0.5 mg PO QPM [facility] Stop: 06/18/22 20:59 Last Admin: 05/22/22 21:51 Dose: 0.5 mg Trazodone HCl (Trazodone Hcl 100 Mg Tab) 100 mg PO QPM [facility] Stop: 06/18/22 20:59 Last Admin: 05/22/22 21:51 Dose: 100 mg Vitamin D (Cholecalciferol 1,000 Units 25 Mcg Tab) 1,000 units PO DAILY [facility] Stop: 06/19/22 08:59 Last Admin: 05/22/22 08:00 Dose: 1,000 units (1) Altered mental status Altered mental status type: unspecified Qualified Code(s): R41.82 - Altered mental status, unspecified
[2022-05-23] MEDS ORDERED: POTASSIUM CHLORIDE PWD 20 MEQ PACK PO ONE (08:08)
[2022-05-23] MEDS: INSULIN ASPART PER UNIT CHARGE SC SCH ×2 (08:13→12:20)
[2022-05-23] MEDS ORDERED: MAGNESIUM OXIDE 400 MG TAB PO SCH (09:00)
--- NOTE | 2022-05-23 14:40 | Discharge Summary ---
Date of Service May 23, 2022 Admission HPI Per Admitting Provider This is a 89-year-old female with PMHx of paroxysmal SVT, HTN, HLD, DM type II, hypothyroidism, iron deficiency anemia, GERD, asthma, restless leg syndrome, CKD stage III who presents to the hospital with worsening weakness over the past 1 day. Patient spiked a fever here of 38.2 in the ER. Concern for underlying infectious source vs possible stroke. The patient's son, Serafin is present at bedside and supports the majority of the history. The patient is very hard of hearing and answers yes or no with a completely negative review of systems. Serafin notes that she she lives in his [place] with his fiance. She typically is able to participate in ADLs without any difficulty, walks with a walker, no recent falls, and is fairly independent minus cooking her meals and doing her laundry. Yesterday around 2 PM she was having issues with walking, leaning to the left, then around 5 PM developed worsening slurring of her speech. By 8 PM her symptoms had resolved and she went to bed. This morning upon waking her weakness was progressed and she was walking incredibly slowly with a walker, hesitating, and seemed more confused. She refused her morning medications and has not eaten today because she states she is not hungry. Typically the patient has a good appetite and this is not like herself. He notes her history of UTI, where she typically reports dysuria and has increased frequency. Last night she walked to the bathroom 3 times which is less than her normal. She has not complained of dysuria, burning or lower abdominal pain today. Nursing reported 1 soft bowel movement, diarrhea, in the ER. Admission Exam Per Admitting Provider General: awake, alert, no apparent distress Head: Normocephalic, atraumatic ENT: PERRL, EOMI, no pharyngeal exudate, mucous membranes moist Chest: Clear to auscultation, on 2L via NC with O2 sats at 97%, no adventitious breath sounds Cardiac: Regular rate and rhythm, no murmur, no JVD, normal peripheral pulses, good capillary refill Abdominal: NABS x 4 quadrants, soft, nondistended, nontender to palpation, no rebound or guarding : Shaw catheter in place draining dark yellow urine Extremities: Normal inspection, no peripheral edema or erythema, calfs nontender to palpation Psych: Normal mood and affect Skin: Chronic dry skin throughout, no erythema, rash or redness Neuro: AAO to self and her son, cannot name the hospital or town., strength intact bilaterally and rated 3/5, no focal motor deficits, speech is clear, no peripheral sensory deficits Principal Diagnosis Fever, stroke-like symptoms Possibly secondary to gastroenteritis Discharge Exam General: Elderly frail F, in NAD Head: Normocephalic, atraumatic ENT: PERRL, EOMI, mucous membranes moist Chest: Clear to auscultation but somewhat diminished, no adventitious breath sounds Cardiac: Regular rate and rhythm, no murmur Abdominal: NABS x 4 quadrants, soft, nondistended, nontender to palpation, no rebound or guarding Extremities: Normal inspection, no peripheral edema or erythema Psych: Normal mood and affect Skin: dry, warm, no erythema, or rash Neuro: Awake and alert, able to answer simple questions appropriately. speech is fluent, no facial asymmetry noted, patient moves extremities Discharge Data Allergies Allergy/AdvReac Type Severity Reaction Status Date / Time No Known Allergies Allergy Verified 12/02/19 10:50 Consultations 05/19/22 16:10 ED Decision to Admit Stat 05/19/22 19:38 Consult Neurology Routine Ordered Studies 05/19/22 13:58 CT head/brain wo con Stat FINDINGS: Brain parenchyma: There is age-related involutional change noting moderate to advanced subcortical and periventricular microangiopathic disease. There is no hemorrhage, mass effect, or evidence of acute territorial ischemia by CT criteria. Crawford-white matter differentiation is preserved. There is a small chronic lacunar infarct in the left thalamus. No extra-axial fluid collection is seen. Ventricles, sulci, cisterns: Prominent secondary to involutional change. Intracranial vasculature: There is atherosclerotic calcification of the cavernous carotid and vertebral arteries. Calvarium: Unremarkable. Sinuses and mastoids: The visualized paranasal sinuses are clear. The mastoid air cells are well pneumatized. Orbits: The bony orbits are grossly intact. There are bilateral ocular lens implants. IMPRESSION: There is no hemorrhage, mass effect, or evidence of acute territorial ischemia by CT criteria. 05/19/22 15:36 CT Abd and Pelvis [CT abd pelvis IV con only] Stat FINDINGS: Lung bases: The heart is enlarged and without pericardial effusion. The coronary arteries are densely calcified. Evaluation of the lung bases is compromised by motion artifact. The lung bases are grossly clear noting bibasilar scarring/atelectasis. There is a moderate to large hiatal hernia. Liver: The contrast-enhanced liver is normal in size, contour, and attenuation. There is no intrahepatic biliary ductal dilatation. The hepatic veins and portal veins are patent. Gallbladder: There are gallstones with no CT evidence of acute cholecystitis. Spleen: Normal in size and attenuation. Pancreas: A 14 mm ovoid simple cystic lesion in the distal pancreatic body on image #126 has been present dating back to 2013. 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 The pancreas is moderately atrophic and otherwise grossly unremarkable. Adrenal glands: Unremarkable. Kidneys: The contrast enhanced kidneys demonstrate mild cortical atrophy and are without hydronephrosis. The kidneys enhance symmetrically. A 2.1 cm cyst is noted on the left. Abdominal vasculature: The abdominal aorta is normal in course and caliber noting moderate to advanced atherosclerotic calcification. Bowel: There is advanced sigmoid diverticulosis without CT evidence of acute diverticulitis. No bowel obstruction is seen. Mild fecal retention is noted throughout the colon. The appendix is well-visualized and normal. Peritoneum: There is no intraperitoneal free air or abdominal ascites. There is a small fat-containing umbilical hernia. Lymphadenopathy: None. Pelvic viscera: The bladder is decompressed around a Shaw catheter and not well evaluated. There is pericystic infiltration. Intraluminal gas is likely related to instrumentation. The uterus is surgically absent. No adnexal lesion is seen. Skeletal structures: The skeletal structures are osteopenic. There is advanced lumbosacral spondylosis. No lytic or blastic lesions are seen. IMPRESSION: 1. The bladder is decompressed a round a Shaw catheter not well evaluated. There is pericystic inflammation. Correlate with clinical findings and urinalysis for evidence of cystitis. 2. Sigmoid diverticulosis without CT evidence of acute diverticulitis. 3. Cholelithiasis. 4. Moderate to large hiatal hernia. 5. Cardiomegaly. 6. Additional findings as above. 05/19/22 16:33 MRI Brain [MR brain wo con] Stat FINDINGS: Brain parenchyma: There is age-related involutional change noting advanced confluent subcortical and periventricular microangiopathic disease. There is no hemorrhage or mass effect. There is no restricted diffusion to suggest acute ischemia. Crawford-white matter differentiation is preserved. No extra-axial fluid collection is seen. 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 The cerebellar tonsils are normal in configuration. Ventricles, sulci, and cisterns: Prominent secondary to positional change. Pituitary and sella: Partially empty sella is incidentally noted. Intracranial vasculature: Normal flow voids are maintained at the skull base. Orbits: The bony orbits are grossly intact. Orbital contents are normal in appearance note bilateral ocular lens implants. Sinuses and mastoids: Clear. Calvarium: Unremarkable. Cervical cord: Partially visualized cervical spinal cord is normal in morphology and signal intensity. IMPRESSION: No acute intracranial abnormality is identified noting a motion compromised examination. Hospital Course (1) Altered mental status: (2) Weakness: -Admitted to PCU - Stroke order set completed, no indication for thrombolytic - CT head reviewed and is negative - MRI brain wo contrast - negative - Continue aspirin and atorvastatin, atorvastatin dose increased - ? poss. TIA - Neurology consulted- as no cva on mri and normal phys. exam, signed off - PT/OT consults placed - Fall precautions - TSH 6.1 mildly up - A1c 7.6% and lipid panel ordered, TG 187, CH 105, LDL 37 Electrolyte abnormalities -Mag is 1.6 on admission -Potassium 3.4 - replace and monitor electrolytes (3) Fever: -Concern for underlying UTI on admission, u cultx - negative -Follow blood cultures x2 - negat. in 48 hrs -IV cefepime started in the ER, continued -WBC 6.03, Tmax 38.2 C on admission -CT of the abdomen pelvis showing possible underlying cystitis - loose stools noted in ED and next AM - stool PCR ordered, sample unable to collect (4) PSVT (paroxysmal supraventricular tachycardia): (5) Dyslipidemia: - Last echo from Nov showing EF of 50-55%, LVH is mild - Checked lipids, increased atorvastatin to 80 mg secondary to possible CVA as above for plaque stabilization (6) Asthma: -Mild, stable, does not use inhalers at baseline -Does not use supplemental O2 at baseline, on admission requiring 2 L with O2 sats at 97%, wean as tolerated, noted to be 88% upon arrival to the ER -COVID, RSV and flu swabs are negative -CXR on admission reviewed and negative -encourage incentive spirometry - per RT, pt ambulated in hallway and was saturating 95% on RA. Per RN, pt needing 1l of O2. -Obtained step 2 prior to DC - pt did not qualify for oxygen (7) Hypothyroidism: - TSH 6, continue levothyroxine 100 mcg daily - follow up w/ pcp Total Time Total Time Spent Total Time Spent (In Minutes): 40 Discharge Plan Discharge Items Patient Disposition: Home - Self-Care Reason For Visit: AMS, FEVER Discharge Diagnosis: Fever, stroke-like symptoms Possibly secondary to gastroenteritis Condition on Discharge: Fair Activity: Per Instructions section Non-emergency contact: Primary Care Provider Call non-emergency contact if: you have any medication questions and your symptoms worsen Follow-up/Referrals: Dulce Maria Quintero DO [Primary Care Provider] - Diet: Carb Consistent or DM2 and Heart Healthy Diet Texture: Easy to Chew Addtl Attending Provider Instructions: Follow-up with primary care doctor within 1 week. Finish antibiotic treatment as prescribed. Your atorvastatin dose was increased to 80 mg daily. Pending Studies at Discharge: Yes Studies:: final blood cultx Stand-Alone Forms: My [facility], Smoking Cessation Medications and DC Order Prescriptions: New atorvastatin 40 mg Tablet 80 mg PO QAM Qty: 60 0RF amoxicillin-pot clavulanate 875-125 mg tablet 1 tab PO BID 3 Days Qty: 6 0RF Continued trazodone 100 mg Tablet 100 mg PO QPM ropinirole [Requip] 0.25 mg Tablet 0.5 mg PO QPM omeprazole 40 mg capsule,delayed release(DR/EC) 40 mg PO DAILY cyanocobalamin (vitamin B-12) [Vitamin B-12] 1,000 mcg Tablet 1,000 mcg PO DAILY cholecalciferol (vitamin D3) [Vitamin D3] 25 mcg (1,000 unit) Capsule 25 mcg PO DAILY (DME) Wheeled Walker Misc See Rx Instructions .ROUTE .MEDSUPPLY Qty: 1 0RF Rx Instructions: As directed aspirin [Ecotrin Low Strength] 81 mg tablet,delayed release (DR/EC) 81 mg PO DAILY Qty: 30 12RF amlodipine 2.5 mg tablet 2.5 mg PO DAILY levothyroxine 75 mcg tablet 75 mcg PO DAILY metoprolol succinate 25 mg tablet extended release 24 hr 25 mg PO DAILY Discontinued atorvastatin 20 mg tablet 20 mg PO HS Discharge Orders: Discharge Order (Routine); Ordered 05/23/22 Ordered By: Umesh Do/Other Patient Handouts: Managing Type 2 Diabetes Admission Data Admit Date/Time: 05/19/22 16:19 Attending Provider: Umesh Ozuna Admit Provider: Antonio Caal Primary Care Provider: Dulce Maria Quintero Other Providers: Antonio Caal ; Ciaran Robles
== END 2022-05-23 15:16 | disposition home or self-care (01) | DRG 69 ==
LOC: ED 13:38 → 2S 16:19 → SUATTDRO 16:19 → 2S 19:15 → 2N 05-22 13:10